=== PATIENT | female | born 1975 ===

== ENCOUNTER 2020-07-10 12:58 | Outpatient (REF) | payer MEDICARE, MEDICAID, SELFPAY ==
[2020-07-11 09:14] LABS: BV Int Neg Control Negative (Negative); BV Int Pos Control Positive (Positive)
[2020-07-11 18:27] LABS: C. trachomatis RNA TMA NOT DETECTED (NOT DETECTED); N. gonorrhoeae RNA TMA NOT DETECTED (NOT DETECTED)
== END 2020-07-10 12:59 | disposition home or self-care (01) ==
LOC: HO.LAB 12:58
PROVIDERS: PCP Pediatrics; Visit Provider Obstetrics & Gynecology
DX: R10.2 Pelvic and perineal pain (principal); N81.6 Rectocele
CPT/HCPCS: 81003; 87480; 87491; 87510; 87591; 87660; 99212; Q3014

== ENCOUNTER 2020-07-11 08:54 | Outpatient (REF) | payer MEDICARE, MEDICAID, SELFPAY ==
--- NOTE | 2020-07-11 08:58 | CT_ITS ---
EXAMINATION: CT ABDOMEN AND PELVIS WITH CONTRAST CLINICAL INFORMATION: Lower abdominal pain. COMPARISON: None TECHNIQUE: Multidetector volumetric images were obtained from the superior aspect of the liver through the pubic symphysis following administration 85 mL of Omnipaque 350 intravenous contrast. Sagittal and coronal reformatted images were obtained on the technologist's workstation. Oral contrast: No This CT examination was performed using dose optimization techniques as appropriate, variously including the following: *Automated exposure control *Adjustment of mA and/or kV according to patient size (this includes techniques or standardized protocols for targeted exams where dose is matched to indication/reason for exam; i.e. extremities or head) *Use of iterative reconstruction technique DLP: 466 mGy-cm FINDINGS: LUNG BASES: The lung bases are clear. LIVER, GALLBLADDER, AND BILIARY TREE: The liver is normal in size, shape, and diffuse hypoattenuation. There is a small hypodense 1 cm lesion right hepatic lobe segment 6. The gallbladder is unremarkable with no evidence of radiopaque gallstones, gallbladder wall thickening, or obvious pericholecystic inflammatory changes. PANCREAS: Unremarkable. SPLEEN: Unremarkable. ADRENAL GLANDS: Unremarkable. KIDNEYS AND URETERS: The kidneys are normal in size, shape, and attenuation. No hydronephrosis, hydroureter, or calculi seen. No perinephric stranding. BLADDER: Unremarkable. GASTROINTESTINAL TRACT: There is moderate scattered stool, oral contrast and gas seen throughout the colon without significant distention. The small bowel loops, ileocecal junction and the appendix are normal caliber. The stomach is nondistended and appears unremarkable. ABDOMINAL WALL: No significant hernia is appreciated. LYMPH NODES: Small scattered lymph nodes are seen in the inguinal region. VASCULAR: Unremarkable. PELVIC VISCERA: The uterus is anteverted and slightly heterogenous. There is a hyperdense lesion in the left adnexa adjacent to a 1.7 cm left ovarian cyst. The lesion measures 3.4 x 2.8 cm. The right adnexa is unremarkable. There is no free fluid in the pelvis. OSSEOUS STRUCTURES: There are degenerative disc changes and vacuum disc phenomenon at L5-S1 disc levels with mild ventral and posterior spondylosis. CT/CT abdomen pelvis w con IMPRESSION: Suspect bilateral pelvic vascular congestion. Hyperdense left adnexal lesion measuring 3.4 x 2.8 cm adjacent to a left ovarian 1.7 cm simple cyst. A hypodense lesion was seen on the previous CT abdomen and pelvis 06/01/2012. It measured 2.5 cm on previous study.
[2020-07-11] MEDS: iohexoL 350 MG/ML 100 ML INFUS..BTL IV (11:16)
== END 2020-07-11 08:55 | disposition home or self-care (01) ==
LOC: HO.CT 08:54
PROVIDERS: Visit Provider Emergency Medicine
DX: R10.30 Lower abdominal pain, unspecified (principal)
CPT/HCPCS: 74177; Q9967

== ENCOUNTER 2020-07-15 10:09 | Outpatient (REF) | payer MEDICARE, MEDICAID, SELFPAY ==
[2020-07-15 13:56] LABS: Hematocrit 41.7 % (37-47); Mean Corpuscular HGB Conc 33.6 g/dl (31.0-35.0); Mean Corpuscular Volume 92.5 fL (80-98); Mean Platelet Volume 10.5 fL (9.4-12.3); Platelet Count 332 X10*3/uL (160-400); Red Blood Count 4.51 X10*6/uL (4.20-5.50); Red Cell Distribution Width 12.1 % (11.0-16.0); White Blood Count 11.9 X10*3/uL (4.8-10.8)
[2020-07-15 14:59] LABS: HCG Quantitative < 2 mIU/mL
[2020-07-17 08:41] LABS: C. trachomatis RNA TMA NOT DETECTED (NOT DETECTED); N. gonorrhoeae RNA TMA NOT DETECTED (NOT DETECTED)
== END 2020-07-15 10:10 | disposition home or self-care (01) ==
LOC: HO.10HDL 10:09
PROVIDERS: Visit Provider Obstetrics & Gynecology
DX: N92.1 Excessive and frequent menstruation with irregular cycle (principal); R10.2 Pelvic and perineal pain
CPT/HCPCS: 36415; 84443; 84702; 85027; 87491; 87591

== ENCOUNTER 2020-07-31 11:14 | Outpatient (REF) | payer MEDICARE, MEDICAID, SELFPAY ==
--- NOTE | 2020-07-31 11:18 | US_ITS ---
EXAMINATION: ULTRASOUND PELVIS COMPLETE CLINICAL INFORMATION: Excessive and frequent menstruation with irregular cycles. COMPARISON: Ultrasound pelvis complete 07/21/2019. Patient had declined transvaginal ultrasound at that time. TECHNIQUE: Transabdominal and transvaginal ultrasound of the pelvis is performed. FINDINGS: The uterus is anteverted and anteflexed measuring 9.1 cm in length, 4.1 cm in AP and 4.7 cm in transverse dimension. There is a hypoechoic moderate-sized lesion in the left lower uterine body measuring 3.2 x 2.7 x 3.3 cm. A second smaller lesion on the left upper body of uterus measures 0.5 x 0.4 x 0.4 cm. These are consistent with small fibroids. These are not well visualized on the previous exam 07/21/2019 The endometrial thickness is 0.6 cm. Small nabothian cysts are seen in the cervix. The right ovary measures 2.4 x 2.0 x 2.2 cm and volume 5.5 mL. There is an anechoic cyst measuring 1.3 x 1.5 x 1.1 cm. There are a few echogenic calcifications seen within the ovaries. There is a tubular anechoic structure seen in right adnexa likely hydrosalpinx. The left ovary measures 2.8 x 1.8 x 1.9 cm and volume 8.1 mL. There is an anechoic cyst measuring 1.2 x 1.4 x 1.5 cm. There are a few echogenic calcifications seen in the ovaries. There is minimal free fluid in pelvis anterior to the uterus. US/US pelvic complete IMPRESSION: There are 2 uterine fibroids new since the last exam. There are small nabothian cysts in the cervix. Bilateral cysts in the ovaries. Likely right hydrosalpinx. Minimal free fluid in the pelvis anterior to the uterus. These above findings are new since ultrasound exam 07/21/2019.
== END 2020-07-31 11:15 | disposition home or self-care (01) ==
LOC: HO.US 11:14
PROVIDERS: PCP Pediatrics; Visit Provider Obstetrics & Gynecology
DX: R10.2 Pelvic and perineal pain (principal); N92.1 Excessive and frequent menstruation with irregular cycle
CPT/HCPCS: 76830; 76856

== ENCOUNTER 2020-08-08 14:28 | Outpatient (REF) | payer MEDICARE, MEDICAID, SELFPAY | END 2020-08-08 14:29 | disposition home or self-care (01) | LOC: HO.LAB 14:28 | PROVIDERS: PCP Pediatrics; Visit Provider Obstetrics & Gynecology | DX: N92.1 Excessive and frequent menstruation with irregular cycle (principal) | CPT/HCPCS: 58100; 88305 ==

== ENCOUNTER → 2020-08-21 15:52 | Outpatient (BNVA) | payer MEDICARE, MEDICAID, SELFPAY | PROVIDERS: PCP Pediatrics; Visit Provider Obstetrics & Gynecology | DX: Z76.89 Persons encountering health services in other specified circumstances (principal) | CPT/HCPCS: Q3014 ==

== ENCOUNTER → 2020-08-26 11:41 | Outpatient (BNVA) | payer MEDICARE, MEDICAID, SELFPAY | PROVIDERS: PCP Pediatrics; Visit Provider Obstetrics & Gynecology | CPT/HCPCS: Q3014 ==

== ENCOUNTER 2020-10-02 08:20 | Outpatient (REF) | payer MEDICARE, MEDICAID, SELFPAY ==
--- NOTE | ~2020-10-02 | MM_ITS ---
EXAMINATION: MM SCREENING DIGITAL BREAST TOMOSYNTHESIS, BILATERAL CLINICAL INFORMATION: Screening. Asymptomatic. The lifetime risk of breast cancer based on the Tyrer-Cuzick Model is 11.1%. COMPARISON: Mammography: March 07, 2019 and August 13, 2017 TECHNIQUE: Digital breast tomosynthesis is performed in both the craniocaudal and mediolateral oblique views along with computer-aided detection (CAD). Synthesized 2D images are generated from the tomosynthesis. FINDINGS: There are scattered areas of fibroglandular density (ACR BI-RADS breast composition Category b). There are no significant masses, abnormal calcifications, or other abnormalities. MM/MM tomosynthesis screening BI IMPRESSION: There are no significant changes from prior study. ASSESSMENT: BI-RADS 1: Negative RECOMMENDATION: Routine annual mammography screening. This patient's information was entered into a reminder system with a target due date for their next mammogram.
== END 2020-10-02 08:21 | disposition home or self-care (01) ==
LOC: HO.MAMMO 08:20
PROVIDERS: PCP Pediatrics; Visit Provider Obstetrics & Gynecology
DX: Z12.31 Encounter for screening mammogram for malignant neoplasm of breast (principal)
CPT/HCPCS: 77063; 77067

== ENCOUNTER → 2020-10-31 10:38 | Outpatient (BNVA) | payer MEDICARE, MEDICAID, SELFPAY | PROVIDERS: PCP Pediatrics; Visit Provider Obstetrics & Gynecology | DX: Z30.430 Encounter for insertion of intrauterine contraceptive device (principal) | CPT/HCPCS: 58300 ==

== ENCOUNTER → 2020-12-09 09:17 | Outpatient (BNVA) | payer MEDICARE, MEDICAID, SELFPAY | PROVIDERS: PCP Pediatrics; Visit Provider Obstetrics & Gynecology | DX: Z30.431 Encounter for routine checking of intrauterine contraceptive device (principal) | CPT/HCPCS: 99212 ==

== ENCOUNTER 2021-02-18 12:51 | Outpatient (REF) | payer MEDICARE, MEDICAID, SELFPAY ==
--- NOTE | ~2021-02-18 | US_ITS ---
EXAMINATION: US PELVIS COMPLETE US PELVIS TRANSVAGINAL CLINICAL INFORMATION: Benign neoplasm. COMPARISON: Most recent pelvic ultrasound dated 07/31/2020 TECHNIQUE: Transabdominal and transvaginal imaging was performed. FINDINGS: The uterus is of normal size and echogenicity measuring 8.9 x 4.4 x 5.2 cm. Redemonstration of a left uterine body fibroid measuring 2 x 2.4 x 1.8 cm (previously 3.2 x 2.7 x 3.3 cm). Additional previously seen small uterine fibroid not identified on the current examination. A regular homogeneous endometrium is identified measuring 0.2 cm. IUD within the endometrium. There are simple nabothian cysts. Both ovaries are of normal size and echogenicity. The right measures 2.1 x 1.4 x 1.5 cm for a volume of 2.3 mL. The left measures 3.8 x 2.1 x 1.7 cm for a volume of 6.8 mL. There are punctate densities within the left ovary, likely representing small calcifications and unchanged. There is trace right adnexal free fluid. US/US transvaginal IMPRESSION: 1. Left uterine body fibroid, slightly decreased in size when compared to the prior examination now measuring up to 3.2 cm (previously 2.4 cm). Additional previously seen fibroid not identified on the current examination. No new myometrial lesion. 2. Unremarkable endometrium with an IUD in appropriate position. 3. Punctate left ovarian calcifications, unchanged. No new adnexal lesion. 4. Trace right adnexal free fluid.
--- NOTE | ~2021-02-18 | US_ITS ---
EXAMINATION: US PELVIS COMPLETE US PELVIS TRANSVAGINAL CLINICAL INFORMATION: Benign neoplasm. COMPARISON: Most recent pelvic ultrasound dated 07/31/2020 TECHNIQUE: Transabdominal and transvaginal imaging was performed. FINDINGS: The uterus is of normal size and echogenicity measuring 8.9 x 4.4 x 5.2 cm. Redemonstration of a left uterine body fibroid measuring 2 x 2.4 x 1.8 cm (previously 3.2 x 2.7 x 3.3 cm). Additional previously seen small uterine fibroid not identified on the current examination. A regular homogeneous endometrium is identified measuring 0.2 cm. IUD within the endometrium. There are simple nabothian cysts. Both ovaries are of normal size and echogenicity. The right measures 2.1 x 1.4 x 1.5 cm for a volume of 2.3 mL. The left measures 3.8 x 2.1 x 1.7 cm for a volume of 6.8 mL. There are punctate densities within the left ovary, likely representing small calcifications and unchanged. There is trace right adnexal free fluid. US/US pelvic complete IMPRESSION: 1. Left uterine body fibroid, slightly decreased in size when compared to the prior examination now measuring up to 3.2 cm (previously 2.4 cm). Additional previously seen fibroid not identified on the current examination. No new myometrial lesion. 2. Unremarkable endometrium with an IUD in appropriate position. 3. Punctate left ovarian calcifications, unchanged. No new adnexal lesion. 4. Trace right adnexal free fluid.
== END 2021-02-18 12:52 | disposition home or self-care (01) ==
LOC: HO.US 12:51
PROVIDERS: PCP Pediatrics; Visit Provider Obstetrics & Gynecology
DX: D21.9 Benign neoplasm of connective and other soft tissue, unspecified (principal); N70.11 Chronic salpingitis
CPT/HCPCS: 76830; 76856

== ENCOUNTER → 2021-03-19 12:51 | Outpatient (BNVA) | payer MEDICARE, MEDICAID, SELFPAY | PROVIDERS: PCP Pediatrics; Visit Provider Obstetrics & Gynecology | DX: D21.9 Benign neoplasm of connective and other soft tissue, unspecified (principal); N70.11 Chronic salpingitis | CPT/HCPCS: 99212 ==

== ENCOUNTER 2021-06-11 07:46 | Outpatient (REF) | payer MEDICARE, MEDICAID, SELFPAY ==
[2021-06-11 14:15] LABS: CT PCR NOT DETECTED (Not Detect.); NG PCR NOT DETECTED (Not Detect.)
[2021-06-12 11:49] LABS: BV Int Neg Control Negative (Negative); BV Int Pos Control Positive (Positive)
== END 2021-06-11 07:47 | disposition home or self-care (01) ==
LOC: HO.LAB 07:46
PROVIDERS: Visit Provider Obstetrics & Gynecology
DX: Z01.411 Encounter for gynecological examination (general) (routine) with abnormal findings (principal); R10.2 Pelvic and perineal pain; B37.3 Candidiasis of vulva and vagina; Z20.2 Contact with and (suspected) exposure to infections with a predominantly sexual mode of transmission
CPT/HCPCS: 81003; 81025; 87480; 87491; 87510; 87591; 87660; 99212

== ENCOUNTER 2021-06-13 08:57 | Outpatient (REF) | payer MEDICARE, MEDICAID, SELFPAY ==
--- NOTE | ~2021-06-13 | US_ITS ---
EXAMINATION: US PELVIS CLINICAL INFORMATION: Chronic salpingitis; pelvic pain. COMPARISON: None TECHNIQUE: Ultrasound of the pelvis is performed using both transabdominal and transvaginal transducers along with Doppler. Transvaginal imaging is performed due to inadequate visualization transabdominally. FINDINGS: Uterus: The uterus is anteverted and anteflexed and measures 7.4 x 4.0 x 4.3 cm. The double wall endometrial thickness is 2 mm. An intrauterine device is seen, properly situated within the endometrial canal. Nabothian cysts are seen within the cervix. The uterus is smooth in contour and has normal myometrial echogenicity. FIBROIDS: There is 1 fibroid seen. 1. Location: Anterior lower uterine segment, subserosal. Size: 2.8 x 2.6 x 2.9 cm. Fibroid characteristics: Heterogeneously hypoechoic. Adnexa: Both ovaries are visualized. There is normal color flow to the adnexa. There is no ovarian torsion. There is no pelvic ascites or fluid collection. Right ovary measures 2.2 x 1.6 x 2.7 cm (volume 4.9 mL). Left ovary measures 2.7 x 2.0 x 2.7 cm (volume 7.4 mL). Within the left adnexa, there is a an ill-defined tubular structure, which may represent a hydrosalpinx. US/US pelvic and transvaginal IMPRESSION: 1. An intrauterine device is seen, properly situated within the endometrial canal. 2. Nabothian cysts are seen within the cervix. 3. A uterine fibroid is seen. 4. An ill-defined tubular structure within the left adnexal region may represent a hydrosalpinx.
[2021-06-13 10:18] LABS: Hepatitis B Surface Antigen Negative (Negative)
[2021-06-13 10:22] LABS: HIV AB/AG Nonreactive (Nonreactive); HIV Num 1 0.06 S/CO (0.00-0.99); ~HepC Num1 0.14 S/CO (0.00-0.79); ~Hepatitis C Antibody Nonreactive (Nonreactive)
[2021-06-13 10:36] LABS: Syphilis Screen Nonreactive (Nonreactive)
[2021-06-14 03:01] LABS: CT PCR NOT DETECTED (Not Detect.); NG PCR NOT DETECTED (Not Detect.)
== END 2021-06-13 08:58 | disposition home or self-care (01) ==
LOC: HO.HMGCX 08:57
PROVIDERS: Absent Provider Obstetrics & Gynecology; PCP Pediatrics; Visit Provider Advanced Practice Midwife
DX: N70.11 Chronic salpingitis (principal); R10.2 Pelvic and perineal pain; N76.0 Acute vaginitis; N92.1 Excessive and frequent menstruation with irregular cycle; B96.89 Other specified bacterial agents as the cause of diseases classified elsewhere; D25.9 Leiomyoma of uterus, unspecified; N84.1 Polyp of cervix uteri; Z97.5 Presence of (intrauterine) contraceptive device
CPT/HCPCS: 76830; 76856; 86780; 86803; 87340; 87389; 87491; 87591

== ENCOUNTER → 2021-06-25 12:31 | Outpatient (BNVA) | payer MEDICARE, MEDICAID, SELFPAY | PROVIDERS: PCP Pediatrics; Visit Provider Obstetrics & Gynecology | DX: N70.11 Chronic salpingitis (principal); R10.2 Pelvic and perineal pain | CPT/HCPCS: 99212 ==

== ENCOUNTER 2022-04-14 11:07 | Outpatient (REF) | payer MEDICARE, MEDICAID, SELFPAY ==
--- NOTE | ~2022-04-14 | XR_ITS ---
EXAMINATION: XR THORACIC SPINE XR CERVICAL SPINE CLINICAL INFORMATION: Pain. COMPARISON: None. TECHNIQUE: Dorsal spine 3 views. Cervical spine 5 views. FINDINGS: Dorsal Spine: There is normal thoracic kyphosis. There is mild levoscoliosis, positional versus spasm. The vertebral heights and alignment are normal. There is no visible acute fracture, dislocation or subluxation seen. Cervical Spine: There is mild straightening of cervical lordosis. The vertebral heights and alignment is normal. There is loss of C5-C6 and C6-C7 disc heights with mild ventral spondylosis. No visible acute fracture, dislocation or lytic process seen. There is bilateral narrowing of neural foramina C5-C6 disc level. No acute fracture or dislocation seen. The craniovertebral junction and the C1-C2 alignment is normal. The prevertebral soft tissues are normal. XR/XR cervical spine 4V IMPRESSION: Mild levoscoliosis of dorsal spine positional versus spasm. No acute fracture or dislocation. Degenerative disc changes C5-C6 and C6-C7 disc levels with ventral and posterior spondylosis C5-C6 disc level. There is bilateral neural foraminal narrowing at C5-C6 disc level from uncovertebral hypertrophic changes. No visible acute fracture or dislocation seen.
--- NOTE | ~2022-04-14 | XR_ITS ---
EXAMINATION: XR THORACIC SPINE XR CERVICAL SPINE CLINICAL INFORMATION: Pain. COMPARISON: None. TECHNIQUE: Dorsal spine 3 views. Cervical spine 5 views. FINDINGS: Dorsal Spine: There is normal thoracic kyphosis. There is mild levoscoliosis, positional versus spasm. The vertebral heights and alignment are normal. There is no visible acute fracture, dislocation or subluxation seen. Cervical Spine: There is mild straightening of cervical lordosis. The vertebral heights and alignment is normal. There is loss of C5-C6 and C6-C7 disc heights with mild ventral spondylosis. No visible acute fracture, dislocation or lytic process seen. There is bilateral narrowing of neural foramina C5-C6 disc level. No acute fracture or dislocation seen. The craniovertebral junction and the C1-C2 alignment is normal. The prevertebral soft tissues are normal. XR/XR thoracic spine 3V IMPRESSION: Mild levoscoliosis of dorsal spine positional versus spasm. No acute fracture or dislocation. Degenerative disc changes C5-C6 and C6-C7 disc levels with ventral and posterior spondylosis C5-C6 disc level. There is bilateral neural foraminal narrowing at C5-C6 disc level from uncovertebral hypertrophic changes. No visible acute fracture or dislocation seen.
== END 2022-04-14 11:08 | disposition home or self-care (01) ==
LOC: HO.XRAY 11:07
PROVIDERS: PCP Pediatrics; Visit Provider Internal Medicine Geriatric Medicine
DX: M54.9 Dorsalgia, unspecified (principal)
CPT/HCPCS: 72050; 72072

== ENCOUNTER 2022-09-06 17:03 | Emergency (ER) | payer MEDICARE, MEDICAID, SELFPAY ==
--- NOTE | ~2022-09-06 | CT_ITS ---
EXAMINATION: CT ANGIOGRAM HEAD CT ANGIOGRAM NECK CLINICAL INFORMATION: Reason for Exam left headache, left neck pain, left arm weakness COMPARISON: None. TECHNIQUE: Initial noncontrast graduate research assistant imaging of the head and neck was performed. Noncontrast head CT was also performed. Test bolus sequences followed by intravenous administration 70 mL of Omnipaque 350. Helical imaging was performed in the axial plane from the aortic arch to the skull vertex. Delayed postcontrast imaging of the head was also performed. The data was processed at the radiation therapy technologist's workstation for generation of MIP sequences. Angled MIPs and volume rendered reformatted images were also generated at an offline 3D workstation. Stenoses are assessed in accordance with NASCET criteria unless otherwise indicated. DLP: 2375.67 mGy-cm This CT examination was performed using dose optimization techniques as appropriate, variously including the following: *Automated exposure control. *Adjustment of mA and/or kV according to patient size (this includes techniques or standardized protocols for targeted exams where dose is matched to indication/reason for exam; i.e. extremities or head). *Use of iterative reconstruction technique. FINDINGS: CT Head: There is no evidence of acute intracranial hemorrhage or edematous territorial infarction. There is no abnormal attenuation within the brain parenchyma. Mcgill-white matter differentiation is preserved. The ventricles are normal in size and configuration. No evidence for obstructive hydrocephalus. No abnormal mass effect or midline shift. No extra-axial fluid collections. No pathologic intra-axial enhancement or regional oligemia. No acute soft tissue or osseous abnormalities. The mastoid air cells and paranasal sinuses are clear. CT Neck: The thyroid gland and remaining cervical soft tissues are within normal limits. Degenerative disc space narrowing and uncovertebral hypertrophy at C5-C6 and to a lesser extent C6-C7 CT Upper Chest: The visualized lung apices and upper mediastinum are within normal limits. Neck CTA: Aortic Arch: Normal contour and caliber. Classic 3 vessel branching pattern of the aortic arch. Great Vessel Origins: No significant stenosis of the branch origins. Right Common Carotid Artery: No focal stenosis or occlusion. Cervical Right Internal Carotid Artery: Normal opacification without focal stenosis or occlusion. Left Common Carotid Artery: No focal stenosis or occlusion. Cervical Left Internal Carotid Artery: Normal opacification without focal stenosis or occlusion. Cervical Right Vertebral Artery: No focal stenosis or occlusion. Cervical Left Vertebral Artery: No focal stenosis or occlusion. Brain CTA: CTA of the head is somewhat technically limited secondary to extensive venous contamination Intracranial Internal Carotid Arteries: No focal stenosis or occlusion. Right Anterior Cerebral Artery: Normal A1 segment. Normal opacification of the distal MEKA segments. Left Anterior Cerebral Artery: Normal A1 segment. Normal opacification of the distal MEKA segments. Anterior Communicating Artery: Normal. Right Middle Cerebral Artery: Normal M1 segment of the MCA without focal stenosis or occlusion. Normal arborization of the distal segments. Left Middle Cerebral Artery: Normal M1 segment of the MCA without focal stenosis or occlusion. Normal arborization of the distal segments. Right Vertebral Artery: Normal V4 segment. Left Vertebral Artery: Normal V4 segment. Basilar Artery: Normal without focal stenosis or occlusion. Normal appearance of the proximal superior cerebellar arteries. Right Posterior Cerebral Artery: Normal P1 segment. Normal opacification of the distal DIRECTOR OF ENVIRONMENTAL SERVICES segments. Left Posterior Cerebral Artery: Normal P1 segment. Normal opacification of the distal DIRECTOR OF ENVIRONMENTAL SERVICES segments. Normal opacification of the superior sagittal, straight, transverse, and sigmoid sinuses. CT/CT angio head neck IMPRESSION: 1. No acute intracranial abnormality including hemorrhage, mass effect, hydrocephalus, or acute territorial edematous infarction. 2. No arterial high grade stenosis or large vessel occlusion in the head or neck. No evidence of arterial dissection. CTA of the head is somewhat technically limited due to extensive venous contamination
--- NOTE | ~2022-09-06 | XR_ITS ---
EXAMINATION: XR chest 2V CLINICAL INFORMATION: Reason for Exam arm pain/back pain/neck pain COMPARISON: July 2018 TECHNIQUE: XR chest 2V Lungs and Sharmila: Both lungs are clear. Pleura: Normal. Costophrenic angles are sharp. No pneumothorax. Heart: The heart is normal in size. Mediastinum: The mediastinum is within normal limits.. Bones: Skeletal structures included are normal for patient's age. XR/XR chest 2V IMPRESSION: No radiographic evidence of acute cardiopulmonary disease.
--- NOTE | 2022-09-06 17:15 | ED.NECK ---
HPI - Neck Pain/Injury General Chief Complaint: General Medical <Mackenzie Barksdale NP - Last Filed: 09/06/22 17:18> Stated Complaint: pain on left side- neck to shoulder <Mackenzie Barksdale NP - Last Filed: 09/06/22 17:18> Time Seen by Provider: 09/06/22 18:06 <Mackenzie Barksdale NP - Last Filed: 09/06/22 17:18> Source: patient <Lilly Liu NP - Last Filed: 09/06/22 20:21> Mode of arrival: ambulatory <Lilly Liu NP - Last Filed: 09/06/22 20:21> Limitations: no limitations <Lilly Liu NP - Last Filed: 09/06/22 20:21> History of Present Illness HPI Narrative: 47-year-old female presents with sudden onset of severe left-sided headache, left-sided neck pain and left arm weakness with numbness, accompanied with nausea. <Lilly Liu NP - Last Filed: 09/06/22 20:21> MD complaint: neck pain and other <Lilly Liu NP - Last Filed: 09/06/22 20:21> Onset (ago): hour(s) (Within the hour of arrival) <Lilly Liu NP - Last Filed: 09/06/22 20:21> Radiation: left lateral, head, left shoulder and left upper extremity <Lilly Liu NP - Last Filed: 09/06/22 20:21> Severity: severe <Lilly Liu NP - Last Filed: 09/06/22 20:21> Severity scale (1-10): 10 <Lilly Liu NP - Last Filed: 09/06/22 20:21> Quality: stabbing and spasming <Lilly Liu NP - Last Filed: 09/06/22 20:21> Duration: improved <Lilly Lui NP - Last Filed: 09/06/22 20:21> Relieving factors: none <Lilly Liu NP - Last Filed: 09/06/22 20:21> Exacerbating factors: none <Lilly Liu NP - Last Filed: 09/06/22 20:21> Associated symptoms: headache, numbness, weakness and nausea <COURTNEY Orantes Last Filed: 09/06/22 20:21> Treatments prior to arrival: none <COURTNEY Orantes Last Filed: 09/06/22 20:21> Related Data Home Medications: Home Medications Medication Instructions Recorded Confirmed levonorgestrel 20 mcg/24 hours (8 intrauterine 12/09/20 yrs) 52 mg intrauterine device (Mirena) Previous Rx's Medication Instructions Recorded terconazole 0.8 % vaginal cream 1 appful vaginal BEDTIME 3 days 06/11/21 #20 grams metronidazole 500 mg tablet 500 mg PO BID 7 days #14 tabs 06/12/21 <COURTNEY Khan Last Filed: 09/06/22 17:18> Allergies/Adverse Reactions: Allergies Allergy/AdvReac Type Severity Reaction Status Date / Time vicodin Allergy Unknown abd pain, Uncoded 06/11/21 08:14 nausea <COURTNEY Khan Last Filed: 09/06/22 17:18> Review of Systems Review of Systems: Constitutional: No Fever, No Chills ENT/Mouth: No Ear Pain, No Hoarseness, No sore throat Eyes: No Eye Pain, No Swelling, No Redness, No Foreign Body Cardiovascular: No Chest Pain, No SOB Respiratory: No Cough, No Dyspnea Gastrointestinal: No Nausea, No Vomiting, No Diarrhea, No abdominal Pain Genitourinary: No Dysuria, No Hematuria Musculoskeletal: positive joint pain, No Myalgias, No Joint Swelling Skin: No Skin lacerations, No rash Neuro: Positive left arm Weakness, positive left arm Numbness, No Paresthesias, No Loss of Consciousness, positive Dizziness, positive left-sided Headache <COURTNEY Orantes Last Filed: 09/06/22 20:21> Yes all other systems are reviewed and are negative <COURTNEY Orantes Last Filed: 09/06/22 20:21> [facility] Past Medical History Attestation statement: The following information was validated with the patient. <COURTNEY Orantes Last Filed: 09/06/22 20:21> Source: old records reviewed <COURTNEY Orantes Last Filed: 09/06/22 20:21> Surgical History: Surgical History History of bilateral tubal ligation History of cholecystectomy <Mackenzie Barksdale NP - Last Filed: 09/06/22 17:18> Social History Social History: Social History Alcohol intake: never Patient Tobacco Use Status: Current everyday Tobacco user Cigarettes Per Day: 8 Advance Directives: No Advance Directives Information Provided: No Sexual orientation: Straight/Heterosexual Gender identity: Female <Mackenzie Barksdale NP - Last Filed: 09/06/22 17:18> Physical Exam Vital Signs: Vital Signs: Last Vital Signs Temp 98 F 09/06/22 17:17 Pulse 68 09/06/22 17:17 Resp 18 09/06/22 17:17 BP 151/96 H 09/06/22 17:17 Pulse Ox 98 09/06/22 17:17 O2 Del Method 09/06/22 17:17 BMI result Body Mass Index 29.3 <Mackenzie Barksdale NP - Last Filed: 09/06/22 17:18> Vital Signs: Last Vital Signs Temp 98 F 09/06/22 17:17 Pulse 68 09/06/22 17:17 Resp 18 09/06/22 17:17 BP 151/96 H 09/06/22 17:17 Pulse Ox 98 09/06/22 17:17 O2 Del Method 09/06/22 17:17 BMI result Body Mass Index 29.3 <Lilly Liu NP - Last Filed: 09/06/22 20:21> Appearance: Alert. Oriented X3. No acute distress. Eyes: Pupils equal, round and reactive to light. EOMI. ENT: Pharynx normal. Neck: Normal inspection. Neck supple. No vertebral tenderness or step-offs CVS: Normal heart rate and rhythm. Pulses normal. Respiratory: No respiratory distress. Breath sounds normal. Abdomen: Soft and nontender. Skin: Skin warm and dry. Normal skin color. Normal skin turgor. Extremities: Left hand airline station agent strength 4/5, right 5/5. Full range of motion. Gait well balanced well coordinated. Neuro: No motor deficit. No sensory deficit. Cranial nerves 2 through 12 intact <Candjame Liu, ENCYCLOPEDIA RESEARCH WORKER - Last Filed: 09/06/22 20:21> NIH Stroke Scale Internal: Initial- Upon Arrival <Lilly Liu ENCYCLOPEDIA RESEARCH WORKER - Last Filed: 09/06/22 20:21> Level of Consciousness: Alert <Candjame Liu, ENCYCLOPEDIA RESEARCH WORKER - Last Filed: 09/06/22 20:21> Level of Consciousness Questions: Answers both questions correctly <Lilly Liu ENCYCLOPEDIA RESEARCH WORKER - Last Filed: 09/06/22 20:21> Level of Consciousness Commands: Performs both tasks correctly <Candjame Liu, ENCYCLOPEDIA RESEARCH WORKER - Last Filed: 09/06/22 20:21> Best Gaze: Normal <Candjame Liu, ENCYCLOPEDIA RESEARCH WORKER - Last Filed: 09/06/22 20:21> Visual: No visual loss <Candy Alexa, ENCYCLOPEDIA RESEARCH WORKER - Last Filed: 09/06/22 20:21> Facial Palsy: Normal <Candy Alexa, ENCYCLOPEDIA RESEARCH WORKER - Last Filed: 09/06/22 20:21> Motor Arm (Right): No drift <Candy Alexa, ENCYCLOPEDIA RESEARCH WORKER - Last Filed: 09/06/22 20:21> Motor Arm (Left): No drift <Candy Alexa, ENCYCLOPEDIA RESEARCH WORKER - Last Filed: 09/06/22 20:21> Motor Leg (Right): No drift <Candy Alexa, ENCYCLOPEDIA RESEARCH WORKER - Last Filed: 09/06/22 20:21> Motor Leg (Left): No drift <Candy Alexa, ENCYCLOPEDIA RESEARCH WORKER - Last Filed: 09/06/22 20:21> Limb Ataxia: Absent <Candy Alexa, ENCYCLOPEDIA RESEARCH WORKER - Last Filed: 09/06/22 20:21> Sensory: Normal <Candy Alexa, ENCYCLOPEDIA RESEARCH WORKER - Last Filed: 09/06/22 20:21> Best Language: No aphasia <Candjame Liu, ENCYCLOPEDIA RESEARCH WORKER - Last Filed: 09/06/22 20:21> Dysarthia: Normal <Candy Alexa, ENCYCLOPEDIA RESEARCH WORKER - Last Filed: 09/06/22 20:21> Extinction and Inattention: No abnormality <Candy Alexa, ENCYCLOPEDIA RESEARCH WORKER - Last Filed: 09/06/22 20:21> Score: 0 <Candy Alexa, ENCYCLOPEDIA RESEARCH WORKER - Last Filed: 09/06/22 20:21> Course Course Course Narrative: This is a rapid medical exam. Deferred additional HPI, ROS, PE to primary provider. 47 yo female w/ history of asthma, anxiety here with complaints of left sided neck pain/left upper back pain/left arm pain, diaphoresis, nausea x 15 minutes. No known injury or trauma. Will obtain labs, EKG, CXR, covid screen. VSS <Mackenzie Barksdale NP - Last Filed: 09/06/22 17:18> This is a rapid medical exam. Deferred additional HPI, ROS, PE to primary provider. 47 yo female w/ history of asthma, anxiety here with complaints of left sided neck pain/left upper back pain/left arm pain, diaphoresis, nausea x 15 minutes. No known injury or trauma. Will obtain labs, EKG, CXR, covid screen. VSS 18:15 47-year-old female presents for evaluation for sudden onset of left-sided headache, left-sided numbness and weakness to the arm, accompanied by nausea and diaphoresis. This episode of pain is described as severe, pulling stabbing feeling, and lasted for approximately 15-20 minutes. The pain has subsided however patient still feels numbness and tingling to the left hand. This pain started after she had her nails manic cured, does not report any physical trauma falls or prodromal events. Stated that she sometimes experiences muscle spasms however this feels much different than prior. NIH Stroke Scale completed at this time. Score is 0. It is concerning that patient had a sudden onset of severe left-sided headache with left arm numbness, no history of migraines, history of hypertension, will order CTA of head and neck. Labs completed in the emergency department waiting room, WBC 12.3, could possibly be reactive, patient does not have any signs or symptoms indicating infection. Patient does not have vertebral tenderness or step-offs, no nuchal rigidity, no mastoid tenderness, HEENT exam is normal. Cranial nerves 2-12 intact. Neurovascularly intact. Chemistries are normal. Troponin is negative. EKG is normal sinus rhythm. Chest x-ray is negative for acute findings. Low likelihood of ACS at this time. COVID negative. 20:00 CTA negative for acute findings requiring emergent intervention. Patient does have some degenerative disc space narrowing and uncovertebral hypertrophy C5-C6 and C6-C7. Her symptoms could be explained by muscle spasm. Will have patient follow-up with her primary care physician. I did describe in detail signs symptoms indicating need for emergent intervention. Patient verbalized understanding of and agrees to plan of care discharge home, as well as signs and symptoms indicating need for emergent intervention <Lilly Liu NP - Last Filed: 09/06/22 20:21> Medications Administered Discontinued Medications Generic Name Dose Route Start Last Admin Trade Name Freq PRN Reason Stop Dose Admin Iohexol 100 ml 09/06/22 18:59 09/06/22 18:59 Iohexol 350 Mg/Ml 100 Ml Infus..Btl IV 09/06/22 19:00 70 ml ONCE ONE Administration <Mackenzie Barksdale NP - Last Filed: 09/06/22 17:18> Medications Administered Discontinued Medications Generic Name Dose Route Start Last Admin Trade Name Freq PRN Reason Stop Dose Admin Iohexol 100 ml 09/06/22 18:59 09/06/22 18:59 Iohexol 350 Mg/Ml 100 Ml Infus..Btl IV 09/06/22 19:00 70 ml ONCE ONE Administration <Lilly Liu NP - Last Filed: 09/06/22 20:21> Medical Decision Making Differential Diagnosis Differential Diagnoses: The differential diagnosis associated with the presentation includes <Lilly Liu NP - Last Filed: 09/06/22 20:21> Admission/Observation Consideration of admission/observation: Escalation of care including admission/observation considered <Lilly Liu NP - Last Filed: 09/06/22 20:21> If CT indicates acute findings, will consider admission or transfer <Lilly Liu NP - Last Filed: 09/06/22 20:21> Lab Data MDM Lab Attestation statement: I reviewed the patient's lab results. <Lilly Liu NP - Last Filed: 09/06/22 20:21> Result Diagrams: 09/06/22 17:34 09/06/22 17:34 <Mackenzie Barksdale NP - Last Filed: 09/06/22 17:18> Labs: Lab Results 09/06/22 09/06/22 09/06/22 Range/Units 17:34 17:34 17:34 WBC 12.3 H (4.8-10.8) X10*3/uL RBC 4.52 (4.20-5.50) X10*6/uL Hgb 14.2 (12.0-16.0) g/dl Hct 40.5 (37.0-47.0) % MCV 89.6 (80.0-98.0) fL MCH 31.4 (27.0-33.0) pg MCHC 35.1 H (31.0-35.0) g/dl RDW 12.1 (11.0-16.0) % Plt Count 294 (160-400) X10*3/uL MPV 10.3 (9.4-12.3) fL Immature Gran % (Auto) 0.3 (0.0-0.4) % Neut % (Auto) 41.7 L (45-73) % Lymph % (Auto) 50.4 H (20-40) % [place] % (Auto) 5.2 (2-11) % Eos % (Auto) 1.8 (0-4) % Baso % (Auto) 0.6 (0-2) % Lymph # (Auto) 6.2 H (1.2-4.9) X10*3/uL [place] # (Auto) 0.6 (0.1-1.2) X10*3/uL Eos # (Auto) 0.2 (0.0-0.4) X10*3/uL Baso # (Auto) 0.1 (0.0-0.2) X10*3/uL Abs Immat Gran (auto) 0.04 H (0.00-0.03) X10*3/uL Absolute Neuts (auto) 5.1 (2.0-8.3) x10*3/uL Absolute Nucleated RBC 0.000 (0.0-0.012) X10*3/uL Nucleated RBC % (auto) 0.0 (0.0-0.2) /100WBC Smear Tech's Comments VERIFIED PT 12.0 (10.0-13.1) SEC INR 1.0 (0.9-1.1) Sodium (135-145) mmol/L Potassium (3.3-5.1) mmol/L Chloride (96-108) mmol/L Carbon Dioxide (22-29) mmol/L Anion Gap (12-20) BUN (9-16) mg/dL Creatinine (0.5-1.4) mg/dL Estim Creat Clear Calc Estimated GFR Random Glucose (60-115) mg/dL Calcium (8.4-10.2) mg/dL Magnesium (1.6-2.6) mg/dL Total Bilirubin (0.0-1.0) mg/dL Direct Bilirubin (0.0-0.5) mg/dL AST (5-31) U/L ALT (0-31) U/L Alkaline Phosphatase (39-117) U/L Troponin I High Sens (<3.5-17.0) ng/L Total Protein (6.5-8.0) g/dL Albumin (3.5-5.0) g/dL COVID-19 (MELE) Negative (Negative) COVID-19 Clin Com See Note 09/06/22 09/06/22 Range/Units 17:34 17:34 WBC (4.8-10.8) X10*3/uL RBC (4.20-5.50) X10*6/uL Hgb (12.0-16.0) g/dl Hct (37.0-47.0) % MCV (80.0-98.0) fL MCH (27.0-33.0) pg MCHC (31.0-35.0) g/dl RDW (11.0-16.0) % Plt Count (160-400) X10*3/uL MPV (9.4-12.3) fL Immature Gran % (Auto) (0.0-0.4) % Neut % (Auto) (45-73) % Lymph % (Auto) (20-40) % [place] % (Auto) (2-11) % Eos % (Auto) (0-4) % Baso % (Auto) (0-2) % Lymph # (Auto) (1.2-4.9) X10*3/uL [place] # (Auto) (0.1-1.2) X10*3/uL Eos # (Auto) (0.0-0.4) X10*3/uL Baso # (Auto) (0.0-0.2) X10*3/uL Abs Immat Gran (auto) (0.00-0.03) X10*3/uL Absolute Neuts (auto) (2.0-8.3) x10*3/uL Absolute Nucleated RBC (0.0-0.012) X10*3/uL Nucleated RBC % (auto) (0.0-0.2) /100WBC Smear Tech's Comments PT (10.0-13.1) SEC INR (0.9-1.1) Sodium 139 (135-145) mmol/L Potassium 3.9 (3.3-5.1) mmol/L Chloride 107 (96-108) mmol/L Carbon Dioxide 23 (22-29) mmol/L Anion Gap 13 (12-20) BUN 11 (9-16) mg/dL Creatinine 0.63 (0.5-1.4) mg/dL Estim Creat Clear Calc 113.6 Estimated GFR > 60 Random Glucose 89 (60-115) mg/dL Calcium 9.3 (8.4-10.2) mg/dL Magnesium 1.9 (1.6-2.6) mg/dL Total Bilirubin 0.2 (0.0-1.0) mg/dL Direct Bilirubin < 0.2 (0.0-0.5) mg/dL AST 18 (5-31) U/L ALT 12 (0-31) U/L Alkaline Phosphatase 60 (39-117) U/L Troponin I High Sens < 3.5 (<3.5-17.0) ng/L Total Protein 6.6 (6.5-8.0) g/dL Albumin 4.2 (3.5-5.0) g/dL COVID-19 (MELE) (Negative) COVID-19 Clin Com <Mackenzie Barksdale, ENCYCLOPEDIA RESEARCH WORKER - Last Filed: 09/06/22 17:18> Lab Results 09/06/22 09/06/22 09/06/22 Range/Units 17:34 17:34 17:34 WBC 12.3 H (4.8-10.8) X10*3/uL RBC 4.52 (4.20-5.50) X10*6/uL Hgb 14.2 (12.0-16.0) g/dl Hct 40.5 (37.0-47.0) % MCV 89.6 (80.0-98.0) fL MCH 31.4 (27.0-33.0) pg MCHC 35.1 H (31.0-35.0) g/dl RDW 12.1 (11.0-16.0) % Plt Count 294 (160-400) X10*3/uL MPV 10.3 (9.4-12.3) fL Immature Gran % (Auto) 0.3 (0.0-0.4) % Neut % (Auto) 41.7 L (45-73) % Lymph % (Auto) 50.4 H (20-40) % [place] % (Auto) 5.2 (2-11) % Eos % (Auto) 1.8 (0-4) % Baso % (Auto) 0.6 (0-2) % Lymph # (Auto) 6.2 H (1.2-4.9) X10*3/uL [place] # (Auto) 0.6 (0.1-1.2) X10*3/uL Eos # (Auto) 0.2 (0.0-0.4) X10*3/uL Baso # (Auto) 0.1 (0.0-0.2) X10*3/uL Abs Immat Gran (auto) 0.04 H (0.00-0.03) X10*3/uL Absolute Neuts (auto) 5.1 (2.0-8.3) x10*3/uL Absolute Nucleated RBC 0.000 (0.0-0.012) X10*3/uL Nucleated RBC % (auto) 0.0 (0.0-0.2) /100WBC Smear Tech's Comments VERIFIED PT 12.0 (10.0-13.1) SEC INR 1.0 (0.9-1.1) Sodium (135-145) mmol/L Potassium (3.3-5.1) mmol/L Chloride (96-108) mmol/L Carbon Dioxide (22-29) mmol/L Anion Gap (12-20) BUN (9-16) mg/dL Creatinine (0.5-1.4) mg/dL Estim Creat Clear Calc Estimated GFR Random Glucose (60-115) mg/dL Calcium (8.4-10.2) mg/dL Magnesium (1.6-2.6) mg/dL Total Bilirubin (0.0-1.0) mg/dL Direct Bilirubin (0.0-0.5) mg/dL AST (5-31) U/L ALT (0-31) U/L Alkaline Phosphatase (39-117) U/L Troponin I High Sens (<3.5-17.0) ng/L Total Protein (6.5-8.0) g/dL Albumin (3.5-5.0) g/dL COVID-19 (MELE) Negative (Negative) COVID-19 Clin Com See Note 09/06/22 09/06/22 Range/Units 17:34 17:34 WBC (4.8-10.8) X10*3/uL RBC (4.20-5.50) X10*6/uL Hgb (12.0-16.0) g/dl Hct (37.0-47.0) % MCV (80.0-98.0) fL MCH (27.0-33.0) pg MCHC (31.0-35.0) g/dl RDW (11.0-16.0) % Plt Count (160-400) X10*3/uL MPV (9.4-12.3) fL Immature Gran % (Auto) (0.0-0.4) % Neut % (Auto) (45-73) % Lymph % (Auto) (20-40) % [place] % (Auto) (2-11) % Eos % (Auto) (0-4) % Baso % (Auto) (0-2) % Lymph # (Auto) (1.2-4.9) X10*3/uL [place] # (Auto) (0.1-1.2) X10*3/uL Eos # (Auto) (0.0-0.4) X10*3/uL Baso # (Auto) (0.0-0.2) X10*3/uL Abs Immat Gran (auto) (0.00-0.03) X10*3/uL Absolute Neuts (auto) (2.0-8.3) x10*3/uL Absolute Nucleated RBC (0.0-0.012) X10*3/uL Nucleated RBC % (auto) (0.0-0.2) /100WBC Smear Tech's Comments PT (10.0-13.1) SEC INR (0.9-1.1) Sodium 139 (135-145) mmol/L Potassium 3.9 (3.3-5.1) mmol/L Chloride 107 (96-108) mmol/L Carbon Dioxide 23 (22-29) mmol/L Anion Gap 13 (12-20) BUN 11 (9-16) mg/dL Creatinine 0.63 (0.5-1.4) mg/dL Estim Creat Clear Calc 113.6 Estimated GFR > 60 Random Glucose 89 (60-115) mg/dL Calcium 9.3 (8.4-10.2) mg/dL Magnesium 1.9 (1.6-2.6) mg/dL Total Bilirubin 0.2 (0.0-1.0) mg/dL Direct Bilirubin < 0.2 (0.0-0.5) mg/dL AST 18 (5-31) U/L ALT 12 (0-31) U/L Alkaline Phosphatase 60 (39-117) U/L Troponin I High Sens < 3.5 (<3.5-17.0) ng/L Total Protein 6.6 (6.5-8.0) g/dL Albumin 4.2 (3.5-5.0) g/dL COVID-19 (MELE) (Negative) COVID-19 Clin Com <Lilly Liu NP - Last Filed: 09/06/22 20:21> Independent Interpretation I performed an independent interpretation of an: EKG, Plain X-Ray and CT Scan <Lilly Liu NP - Last Filed: 09/06/22 20:21> Interpretation: Sinus bradycardia Otherwise normal ECG When compared with ECG of 27-JUL-2018 09:09, No significant change was found Vent. rate 59 BPM MT interval 126 ms QRS duration 78 ms QT/QTc 396/392 ms P-R-T axes 61 2 10 06-SEP-2022 17:27:38 <COURTNEY Orantes Last Filed: 09/06/22 20:21> Radiology Impression Discussion of test interpretation with radiology: I have reviewed the radiologist's reading. <Lilly Liu NP - Last Filed: 09/06/22 20:21> Radiologist Impression: FINDINGS: CT Head: There is no evidence of acute intracranial hemorrhage or edematous territorial infarction. There is no abnormal attenuation within the brain parenchyma. Mcgill-white matter differentiation is preserved. The ventricles are normal in size and configuration. No evidence for obstructive hydrocephalus. No abnormal mass effect or midline shift. No extra-axial fluid collections. No pathologic intra-axial enhancement or regional oligemia. No acute soft tissue or osseous abnormalities. The mastoid air cells and paranasal sinuses are clear. CT Neck: The thyroid gland and remaining cervical soft tissues are within normal limits. Degenerative disc space narrowing and uncovertebral hypertrophy at C5-C6 and to a lesser extent C6-C7 CT Upper Chest: The visualized lung apices and upper mediastinum are within normal limits. Neck CTA: Aortic Arch: Normal contour and caliber. Classic 3 vessel branching pattern of the aortic arch. Great Vessel Origins: No significant stenosis of the branch origins. Right Common Carotid Artery: No focal stenosis or occlusion. Cervical Right Internal Carotid Artery: Normal opacification without focal stenosis or occlusion. Left Common Carotid Artery: No focal stenosis or occlusion. Cervical Left Internal Carotid Artery: Normal opacification without focal stenosis or occlusion. Cervical Right Vertebral Artery: No focal stenosis or occlusion. Cervical Left Vertebral Artery: No focal stenosis or occlusion. Brain CTA: CTA of the head is somewhat technically limited secondary to extensive venous contamination Intracranial Internal Carotid Arteries: No focal stenosis or occlusion. Right Anterior Cerebral Artery: Normal A1 segment. Normal opacification of the distal MEKA segments. Left Anterior Cerebral Artery: Normal A1 segment. Normal opacification of the distal MEKA segments. Anterior Communicating Artery: Normal. Right Middle Cerebral Artery: Normal M1 segment of the MCA without focal stenosis or occlusion. Normal arborization of the distal segments. Left Middle Cerebral Artery: Normal M1 segment of the MCA without focal stenosis or occlusion. Normal arborization of the distal segments. Right Vertebral Artery: Normal V4 segment. Left Vertebral Artery: Normal V4 segment. Basilar Artery: Normal without focal stenosis or occlusion. Normal appearance of the proximal superior cerebellar arteries. Right Posterior Cerebral Artery: Normal P1 segment. Normal opacification of the distal WARP DRESSER segments. Left Posterior Cerebral Artery: Normal P1 segment. Normal opacification of the distal WARP DRESSER segments. Normal opacification of the superior sagittal, straight, transverse, and sigmoid sinuses. CT/CT angio head neck IMPRESSION: ? 1.? No acute intracranial abnormality including hemorrhage, mass effect, hydrocephalus, or acute territorial edematous infarction. ? 2.? No arterial high grade stenosis or large vessel occlusion in the head or neck.? No evidence of arterial dissection. CTA of the head is somewhat technically limited due to extensive venous contamination EXAMINATION: XR chest 2V CLINICAL INFORMATION: Reason for Exam arm pain/back pain/neck pain COMPARISON: July 2018? TECHNIQUE: XR chest 2V Lungs and Sharmila: Both lungs are clear. Pleura: Normal. Costophrenic angles are sharp. No pneumothorax. Heart: The heart is normal in size. Mediastinum: The mediastinum is within normal limits.. Bones: Skeletal structures included are normal for patient's age. XR/XR chest 2V IMPRESSION: No radiographic evidence of acute cardiopulmonary disease. <Lilly Liu NP - Last Filed: 09/06/22 20:21> External Record Review External record reviewed: Inpatient record, Outpatient record and Prior outpatient labs <Lilly Liu NP - Last Filed: 09/06/22 20:21> Chronic Conditions Patient?s care impacted by: Hypertension <Lilly Liu NP - Last Filed: 09/06/22 20:21> Discharge Plan Discharge Clinical Impression: Muscle spasm, Arm weakness, Headache <Mackenzie Barksdale NP - Last Filed: 09/06/22 17:18> Instructions: Acute Headache (ED), Weakness (ED), Muscle Spasm (ED) <Mackenzie Barksdale NP - Last Filed: 09/06/22 17:18> Additional Instructions: You were evaluated for sudden onset of a left-sided headache with neck pain radiating down to her arm. EKG is normal sinus rhythm, cardiac enzymes are negative. We completed a CT angio of your head and neck. There were no acute findings requiring emergent intervention. No indication of stroke or vessel occlusion. Incidental findings of degenerative disc disease in her cervical spine C5-C6 and C6-C7. Please follow-up with primary care physician as you may need a physical therapy referral. This could possibly be a muscle spasm. If symptoms persist, or you have any worsening symptoms including but not limited to changes in vision, numbness, loss of balance, please present to the emergency department for evaluation. Thank you for choosing this emergency department for evaluation. Please follow-up with primary care physician as needed. Return to the emergency department for any new, concerning, or worsening symptoms. <Mackenzie Barksdale NP - Last Filed: 09/06/22 17:18> Prescriptions: No Action metronidazole 500 mg tablet 500 mg PO BID 7 Days Qty: 14 0RF Mirena 20 mcg/24 hours (6 yrs) 52 mg intrauterine device 1 device intrauterine ONCE Qty: 1 0RF Mirena 20 mcg/24 hours (6 yrs) 52 mg intrauterine device intrauterine terconazole 0.8 % cream 1 appful vaginal BEDTIME 3 Days Qty: 20 0RF <Mackenzie Barksdale NP - Last Filed: 09/06/22 17:18>
[2022-09-06 17:17] VITALS: BP 151/96; PULSE 68; RESP 18; TEMP 36.6; O2SAT 98; BMI 29.3
--- NOTE | 2022-09-06 17:17 | ECG_ITS ---
Test Reason : CHEST PAIN Blood Pressure : / mmHG Vent. Rate : 059 BPM Atrial Rate : 059 BPM P-R Int : 126 ms QRS Dur : 078 ms QT Int : 396 ms P-R-T Axes : 061 002 010 degrees QTc Int : 392 ms Sinus bradycardia Otherwise normal ECG When compared with ECG of 27-JUL-2018 09:09, No significant change was found Referred By: Mackenzie Barksdale Electronically Signed By:DIANE RIVERS
[2022-09-06 17:52] LABS: Basophils Absolute Auto 0.1 X10*3/uL (0.0-0.2); Basophils Percent Auto 0.6 % (0-2); Eosinophils Absolute Auto 0.2 X10*3/uL (0.0-0.4); Eosinophils Percent Auto 1.8 % (0-4); Hematocrit 40.5 % (37.0-47.0); Hemoglobin 14.2 g/dl (12.0-16.0); Imm Gran Abs Auto 0.04 X10*3/uL (0.00-0.03); Imm Gran Pct Auto 0.3 % (0.0-0.4); Lymphocytes Percent Auto 50.4 % (20-40); Mean Corpuscular HGB Conc 35.1 g/dl (31.0-35.0); Mean Corpuscular Hemoglobin 31.4 pg (27.0-33.0); Mean Corpuscular Volume 89.6 fL (80.0-98.0); Mean Platelet Volume 10.3 fL (9.4-12.3); Monocytes Absolute Auto 0.6 X10*3/uL (0.1-1.2); Monocytes Percent Auto 5.2 % (2-11); Neutrophils Absolute Auto 5.1 x10*3/uL (2.0-8.3); Neutrophils Percent Auto 41.7 % (45-73); Platelet Count 294 X10*3/uL (160-400); Red Blood Count 4.52 X10*6/uL (4.20-5.50); Red Cell Distribution Width 12.1 % (11.0-16.0); SCAN SMEAR FLAG 1; White Blood Count 12.3 X10*3/uL (4.8-10.8)
[2022-09-06 17:56] LABS: COVID-19 Test Negative (Negative); IDNOW Serial# 16C4AD1C
[2022-09-06 17:58] LABS: Alanine Aminotransferase 12 U/L (0-31); Albumin Level 4.2 g/dL (3.5-5.0); Alkaline Phosphatase 60 U/L (39-117); Anion Gap 13 (12-20); Aspartate Amino Transferase 18 U/L (5-31); Bilirubin Direct < 0.2 mg/dL (0.0-0.5); Bilirubin Total 0.2 mg/dL (0.0-1.0); Blood Urea Nitrogen 11 mg/dL (9-16); Calcium 9.3 mg/dL (8.4-10.2); Carbon Dioxide 23 mmol/L (22-29); Chloride 107 mmol/L (96-108); Creatinine Clr Calc Pharmacy 113.6; Estimated Glomerular Filt Rate > 60; Glucose Random 89 mg/dL (60-115); Magnesium 1.9 mg/dL (1.6-2.6); Potassium 3.9 mmol/L (3.3-5.1); Sodium 139 mmol/L (135-145); Total Protein 6.6 g/dL (6.5-8.0)
[2022-09-06 18:05] LABS: Lymphocytes Absolute Auto 6.2 X10*3/uL (1.2-4.9); Troponin-I High Sensitivity < 3.5 ng/L (<3.5-17.0)
[2022-09-06 18:06] LABS: MANUAL DIFF FLAG SCAN; SLIDE REVIEW VERIFIED
[2022-09-06] MEDS: iohexoL 350 MG/ML 100 ML INFUS..BTL IV (18:59)
--- NOTE | 2022-09-06 21:04 | PC.NURSE ---
Pt aox3. Reports feeling I feel this heat inside my head . Zaid sob, itchy/tingling sensation. MLP aware.
--- NOTE | 2022-09-06 21:19 | PC.NURSE ---
IV line removed. Pt tolerated well. Discharge instructions reviewed with pt. Pt verbalizes understanding.
== END 2022-09-06 22:04 | disposition home or self-care (01) ==
PROVIDERS: Nurse Practitioner Family; Emergency Provider Emergency Medicine Emergency Medical Services; PCP Pediatrics
DX: R07.89 Other chest pain (principal); M62.838 Other muscle spasm; R53.1 Weakness; R51.9 Headache, unspecified; M54.2 Cervicalgia; M79.602 Pain in left arm; M79.601 Pain in right arm; Z20.822 Contact with and (suspected) exposure to COVID-19; Z20.828 Contact with and (suspected) exposure to other viral communicable diseases; Z79.899 Other long term (current) drug therapy
CPT/HCPCS: 36415; 70496; 70498; 71046; 80048; 80076; 83735; 84484; 85025; 85610; 87635; 93005; 99283; Q9967

== ENCOUNTER 2022-09-11 12:02 | Outpatient (REF) | payer MEDICARE, MEDICAID, SELFPAY ==
--- NOTE | ~2022-09-11 | MM_ITS ---
EXAMINATION: MM SCREENING DIGITAL BREAST TOMOSYNTHESIS, BILATERAL CLINICAL INFORMATION: Screening. Asymptomatic. The lifetime risk of breast cancer based on the Tyrer-Cuzick Model is 10%. COMPARISON: Mammography: 10/02/2020, 03/17/2019, 08/20/2017, 08/13/2017 (baseline). TECHNIQUE: Digital breast tomosynthesis is performed in both the craniocaudal and mediolateral oblique views along with computer-aided detection (CAD). Synthesized 2D images are generated from the tomosynthesis. FINDINGS: There are scattered areas of fibroglandular density (ACR BI-RADS breast composition Category b). Parenchymal pattern is similar to prior exams. There is no significant mass or architectural abnormality or developing density. No abnormal calcifications. Small dermal lesion again seen overlying right axilla on MLO view. There are some incidental dermal calcifications again seen posterior lower right breast. The axilla are unremarkable. There are no significant changes. MM/MM tomosynthesis screening BI IMPRESSION: No mammographic evidence of malignancy. ASSESSMENT: BI-RADS 2: Benign RECOMMENDATION: Routine annual mammography screening. This patient's information was entered into a reminder system with a target due date for their next mammogram.
== END 2022-09-11 12:03 | disposition home or self-care (01) ==
LOC: HO.MAMMO 12:02
PROVIDERS: PCP Pediatrics; Visit Provider Pediatrics
DX: Z12.31 Encounter for screening mammogram for malignant neoplasm of breast (principal)
CPT/HCPCS: 77063; 77067

== ENCOUNTER → 2023-06-24 10:43 | Outpatient (BNVA) | payer MEDICARE, MEDICAID, SELFPAY | PROVIDERS: PCP Pediatrics; Visit Provider Physician Assistant ==

== ENCOUNTER 2023-06-26 12:07 | Outpatient (AMB) | payer MEDICARE, MEDICAID, SELFPAY ==
--- NOTE | 2023-06-26 12:29 | AM.OFFWIN_ITS ---
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 Patient Tobacco Use Status: Current everyday Tobacco user Allergies vicodin Allergy (Unknown, Uncoded 06/26/23 12:32) abd pain, nausea Do you need a note to return to daycare/school/sports/work: Yes HPI HPI Comments History of Present Illness Details She presents to office with covid symptoms Wednesday onset of symptoms She has been taking Mucinex, Motrin, allergy pills Started with ST which has resolved +body aches, congestion, headache Minimum cough with some phlegm No fevers She took covid test this am which was negative PFSH Surgical History History of bilateral tubal ligation History of cholecystectomy Family History (Updated 06/25/23 @ 21:22 by Ursula Grant PA-C) Unknown No family history of colorectal cancer Social History Alcohol intake: never Patient Tobacco Use Status: Current everyday Tobacco user Cigarettes Per Day: 8 Sexual orientation: Straight/Heterosexual Gender identity: Female Review of Systems Const Reports body aches, Denies chills, Denies fever(s) and Reports headache(s) Eyes Denies blurry vision ENT Reports otalgia, Reports headache(s), Reports nasal congestion, Reports nasal discharge, Denies sore throat (previously but resolved) and Denies throat swelling Card Denies chest pain and Denies dyspnea Resp Denies dyspnea Neuro Reports headache(s) Aller/Immun Denies throat swelling Physical Exam Vital Signs: Last Vital Signs Temp 97.9 F 06/26/23 12:33 Pulse 74 06/26/23 12:33 BP 122/78 06/26/23 12:33 Pulse Ox 98 06/26/23 12:33 Oxygen Delivery Method Room Air 06/26/23 12:33 General: Non-toxic, NAD. Speaking full sentences. Skin: Warm dry throughout Eye: EOMI HENT: Airway patent. Uvula midline. No pharyngeal erythema or edema. 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 Bilateral canals clear. slight erythema to TMs without bulging. No TM perforation or hemotympanum noted. +rhinorrhea Respiratory: CTA bilaterally. No wheezes, rales or rhonchi Cardiac: RRR. No murmur MSK: Full ROM extremities. Neurology: A/O. No aphasia or facial droop. Gait without abnormality Psych: Good mood and affect Assessment & Plan Assessment & Plan (1) Upper respiratory infection: Code(s): J06.9 - Acute upper respiratory infection, unspecified Qualifiers: URI type: unspecified URI Qualified Code(s): J06.9 - Acute upper respiratory infection, unspecified Plan: Patient seen and evaluated. COVID test sent to lab Discussed tessalon and nasal spray use F/U with PCP Will call with covid result Patient gave verbal understanding and had no additional questions or concerns at time of discharge All questions answered Orders: Orders BinaxNOW Covid-19 Ag Today J06.9 - Acute upper respiratory infection, unspecified Medications: New benzonatate 100 mg PO BID-TID PRN 14 caps 0RF cough J06.9 - Acute upper respiratory infection, unspecified ipratropium bromide administer into each nostril 2 sprays intranasal BID-TID 7 days PRN 30 mL 0RF allergy symptoms J06.9 - Acute upper respiratory infection, unspecified Coding Level of Care Code Est Pt Level 3 (70182) Diagnoses Upper respiratory tract infection, unspecified type J06.9 URI type: unspecified URI
[2023-06-26 12:33] VITALS: BP 122/78; PULSE 74; TEMP 36.6; O2SAT 98
== END 2023-06-26 13:52 | disposition home or self-care (01) ==
PROVIDERS: PCP Pediatrics; Visit Provider Physician Assistant
DX: J06.9 Acute upper respiratory infection, unspecified (principal)
CPT/HCPCS: 99213

== ENCOUNTER 2023-06-26 12:59 | Outpatient (REF) | payer MEDICARE, MEDICAID, SELFPAY ==
[2023-06-26 13:26] LABS: Binax Internal Control QC Valid; Binax Now Covid-19 Ag Positive (Negative); Binax Performed by: HO.TORG
== END 2023-06-26 13:00 | disposition home or self-care (01) ==
LOC: HO.HMGCLDS 12:59
PROVIDERS: PCP Pediatrics; Visit Provider Physician Assistant
DX: J06.9 Acute upper respiratory infection, unspecified (principal); Z11.52 Encounter for screening for COVID-19
CPT/HCPCS: 87811

== ENCOUNTER 2023-07-10 09:22 | Outpatient (AMB) | payer MEDICARE, MEDICAID, SELFPAY ==
[2023-07-10 10:49] VITALS: BP 102/70; PULSE 96; TEMP 36.7; O2SAT 98; BMI 30.6
--- NOTE | 2023-07-10 10:49 | MHC.OFFWIV ---
Intake Vital Signs 07/10/23 10:49 Height 5 ft 4 in Weight 178 lb BMI 30.6 BP 102/70 Blood Pressure Location Rt brachial Position Sitting Pulse 96 Pulse Source Pulse Oximeter Temp 98.1 F Temp Source Oral Pulse Oximetry (%) 98 Oxygen Delivery Method Room Air Intake Visit Reasons: EP, right side and abdominal pain (masked) Intake Note: Pt is here today c/o Rt lower back pain into abdominal discomfort x3days Patient Tobacco Use Status: Current everyday Tobacco user Allergies vicodin Allergy (Unknown, Uncoded 07/10/23 10:50) abd pain, nausea HPI HPI Comments History of Present Illness Details 47-year-old female that presents for bilateral low back pain radiating into the groin region. 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 Fever or chills does have a history of back a little different [facility] Surgical History History of bilateral tubal ligation History of cholecystectomy Family History (Updated 06/25/23 @ 21:22 by Ursula Grant PA-C) Unknown No family history of colorectal cancer Social History Alcohol intake: never Patient Tobacco Use Status: Current everyday Tobacco user Cigarettes Per Day: 8 Sexual orientation: Straight/Heterosexual Gender identity: Female Review of Systems [facility] [place] Physical Exam Vital Signs: Last Vital Signs Temp 98.1 F 07/10/23 10:49 Pulse 96 07/10/23 10:49 BP 102/70 07/10/23 10:49 Pulse Ox 98 07/10/23 10:49 Oxygen Delivery Method Room Air 07/10/23 10:49 BMI result Body Mass Index 30.6 Const General: cooperative, healthy appearing, no acute distress and alert Orientation/consciousness: patient oriented x3 Limitations: no limitations HEENT Head: Yes normal to inspection Ears: hearing grossly normal bilaterally General nose exam: Normal external nose present Resp Effort & Inspection: normal respiratory effort and able to speak in complete sentences Cardio Rate: regular rate GI Inspection: Yes normal to inspection Palpation (GI): Soft to palpation and nontender Back/Spine/Pelvis Other: No CVA tenderness Skin General skin exam: no rashes or lesions noted Neuro General: patient oriented x3 Extrem General: Yes normal to inspection Results AMB Urinalysis, Automated UA Leukoctes 0 Lucia/uL Last Edit by Maite Vila CMA on 07/10/23 11:03 UA Nitrite Negative Last Edit by Maite Vila CMA on 07/10/23 11:03 UA Urobilinogen 0.2 mg/dL Last Edit by Maite Vila CMA on 07/10/23 11:03 UA Protein 0 mg/dL Last Edit by Maite Vila CMA on 07/10/23 11:03 UA pH 6.0 Last Edit by Maite Vila CMA on 07/10/23 11:03 UA Blood 0 Pop/uL Last Edit by Maite Vila CMA on 07/10/23 11:03 UA Specific [place] 1.025 Last Edit by Maite Vila CMA on 07/10/23 11:03 UA Ketone Negative Last Edit by Maite Vila CMA on 07/10/23 11:03 UA Bilirubin 0 mg/dL Last Edit by Maite Vila CMA on 07/10/23 11:03 UA Glucose 0 mg/dL Last Edit by Maite Vila CMA on 07/10/23 11:03 Results Reviewed Results Reviewed: Laboratory Last Values Urine pH (Auto) 6.0 07/10/23 10:55 Specific [place] (Auto) 1.025 07/10/23 10:55 Urine Protein (Auto) 0 mg/dL 07/10/23 10:55 Glucose (UA)(Auto) 0 mg/dL 07/10/23 10:55 Urine Ketones (Auto) Negative 07/10/23 10:55 Urine Blood (Auto) 0 Pop/uL 07/10/23 10:55 Urine Nitrite (Auto) Negative 07/10/23 10:55 Urine Bilirubin (Auto) 0 mg/dL 07/10/23 10:55 Urine Urobilinogen (Auto) 0.2 mg/dL 07/10/23 10:55 Leukocyte Esterase (Auto) 0 Lucia/uL 07/10/23 10:55 Assessment & Plan Assessment & Plan (1) Back pain: Code(s): M54.9 - Dorsalgia, unspecified Qualifiers: Back pain location: low back pain Chronicity: acute Back pain laterality: bilateral Sciatica presence: without sciatica Qualified Code(s): M54.50 - Low back pain, unspecified Plan: VSS. Exam was unremarkable note to be tenderness bili exam benign. Unclear etiology of patient's pain could be musculoskeletal in nature Low suspicion gallbladder pathology is patient is post cholecystectomy urinalysis negative. Recommend continued symptomatic treatment return precautions given Orders: Orders AMB Urinalysis Automated Today Z13.9 - Encounter for screening, unspecified Coding Level of Care Code Est Pt Level 3 (67914) Diagnoses Acute bilateral low back pain without sciatica M54.50 Back pain location: low back pain Chronicity: acute Back pain laterality: bilateral Sciatica presence: without sciatica
== END 2023-07-10 11:33 | disposition home or self-care (01) ==
PROVIDERS: PCP Pediatrics; Visit Provider Physician Assistant
DX: M54.50 Low back pain, unspecified (principal)
CPT/HCPCS: 81003; 99213

== ENCOUNTER 2023-07-30 18:57 | Emergency (ER) | payer MEDICARE, MEDICAID, SELFPAY ==
--- NOTE | ~2023-07-30 | XR_ITS ---
EXAMINATION: XR CHEST CLINICAL INFORMATION: Chest pain COMPARISON: 09/06/2022 TECHNIQUE: 2 views of the chest were obtained. FINDINGS: No significant abnormality is noted involving the heart, lungs, mediastinum, bony thorax or soft tissues. XR/XR chest 2V IMPRESSION: Unremarkable examination.
[2023-07-30 19:30] VITALS: BP 155/79; PULSE 79; RESP 16; TEMP 37.2; O2SAT 99; BMI 30.1
--- NOTE | 2023-07-30 19:31 | ED_ITS ---
HPI - Chest Pain General Chief Complaint: General Medical Stated Complaint: lower back pain, headache, sob, dizzy Time Seen by Provider: 07/30/23 20:28 Source: patient Mode of arrival: ambulatory Limitations: no limitations History of Present Illness HPI narrative: patient comes to the emergency room complaining of multiple complaints, patient states that she started fighting a warm sensation throughout her body, some abdominal pain, some shortness of breath, lightheadedness, discomfort radiating throughout the chest and the back and torso. Within 10 minutes, all of her symptoms resolved. Patient denies any cardiac history, no syncope or near syncope. Patient states that she has had panic attacks in the past and it was similar but not the same. Related Data Home Medications Medication Instructions Recorded Confirmed levonorgestrel 21 mcg/24 hours (8 intrauterine 12/09/20 06/24/23 yrs) 52 mg intrauterine device (Mirena) gabapentin 300 mg capsule 300 mg PO TID 06/24/23 06/24/23 ibuprofen 800 mg tablet mg PO 06/24/23 06/24/23 Previous Rx's Medication Instructions Recorded bisacodyl 5 mg tablet,delayed 20 mg (4 x 5 mg) PO ONCE 06/24/23 release (Dulcolax (bisacodyl)) colonoscopy prep 1 day #4 tabs polyethylene glycol 3350 17 238 g PO ONCE PRN laxative effect 06/24/23 gram/dose oral powder (Miralax) 1 day #238 grams ipratropium bromide 21 mcg (0.03 2 spray intranasal BID-TID PRN 06/26/23 %) nasal spray allergy symptoms 7 days #30 mL Allergies Allergy/AdvReac Type Severity Reaction Status Date / Time vicodin Allergy Unknown abd pain, Uncoded 07/30/23 19:30 nausea Review of Systems 2 Review of Systems: Constitutional : No Weight loss, No Fever, No Chills, No Night Sweats, No Fatigue, No Malaise ENT/Mouth : No Hearing loss, No Ear Pain, No Nasal Congestion, No Sinus Pain, No Hoarseness, No sore throat, No Rhinorrhea, No Swallowing Difficulty Eyes: No Eye Pain, No Swelling, No Redness, No Foreign Body, No Discharge, No Vision Changes Cardiovascular : No Chest Pain, No SOB, No Dyspnea on Exertion, No Orthopnea, No Edema, No Palpitations Respiratory : No Cough, No Sputum, No Wheezing, No Smoke Exposure, No Dyspnea Gastrointestinal : No Nausea, No Vomiting, No Diarrhea, No Constipation, No abdominal Pain, No Hematochezia, No Melena Genitourinary : no irregular bleeding, No Dysuria, No Urinary Frequency, No Hematuria, No Urinary Incontinence, No Urgency, No Flank Pain, No Urinary Flow Changes, No Hesitancy Musculoskeletal : No joint pain, No Myalgias, No Joint Swelling Skin : No Skin Lesions, No rash Neuro : No Weakness, No Numbness, No Paresthesias, No Loss of Consciousness, No Dizziness, No Headache Psych : No Anxiety/Panic, No Depression, No SI/HI/AH/VH, No Social Issues, Heme/Lymph: No Bruising, No Bleeding,No Lymphadenopathy Endocrine : No Polyuria, No Polydipsia, No Temperature Intolerance [facility] Past Medical History Surgical History History of bilateral tubal ligation History of cholecystectomy Family History Family History (Updated 06/25/23 @ 21:22 by Ursula Grant PA-C) Unknown No family history of colorectal cancer Social History Social History Alcohol intake: never Patient Tobacco Use Status: Current everyday Tobacco user Cigarettes Per Day: 8 Advance Directives: No Advance Directives Information Provided: No Sexual orientation: Straight/Heterosexual Gender identity: Female Physical Exam 2 Vital Signs: Vital Signs: Last Vital Signs Temp 98.9 F 07/30/23 19:30 Pulse 79 07/30/23 19:30 Resp 16 07/30/23 19:30 BP 155/79 H 07/30/23 19:30 Pulse Ox 99 07/30/23 19:30 O2 Del Method Room Air 07/30/23 19:30 BMI result Body Mass Index 30.1 Const: Other: Appearance: Alert. Oriented X3. No acute distress. Eyes: Pupils equal, round and reactive to light. ENT: Pharynx normal. Neck: Normal inspection. Neck supple. No lymph nodes noted. No crepitus CVS: Normal heart rate and rhythm. Pulses normal. Normal S1 and S2 Respiratory: No respiratory distress. Breath sounds normal. No Wheezing. No rales Abdomen: Soft and nontender. No rigidity. No distention. Skin: Skin warm and dry. Normal skin color. Normal skin turgor. Extremities: No lower extremity edema. No Lacerations. No Rash Neuro: Oriented X 3. No motor deficit. No sensory deficit. Moving all extremities. No slurred speech. CN 2 through 12 grossly intact Psych: calm, cooperative, normal affect Course Course Course Narrative: This is an RME: Additional HPI, ROS, PE not included below will be deferred to primary provider. Umu is a 47 year old female pmhx disc herniation, asthma. Sudden onset of pain approximately 20 minutes prior to arrival, started as sharp pain diffuse across the lower back radiating into the abdomen up into the lower substernal chest with associated dizziness and shortness of breath. Tingling left hand in left lower extremity. Had a near syncopal episode. symptoms have overall improved but still remain. Medical Decision Making Medical Decision Making [facility] Narrative: -My interpretation of labs: Normal at baseline hematology, chemistry, LFTs, troponin - my interpretation of chest x-ray: No abnormalities - discussed with the patient that it is possible that she may have had panic attack Differential Diagnosis Differential Diagnoses: The differential diagnosis associated with the presentation includes ( anxiety, arrhythmia, near syncope) Lab Data [facility] Lab Attestation statement: I reviewed the patient's lab results. 07/30/23 19:47 07/30/23 19:47 Labs: Lab Results 07/30/23 Range/Units 19:47 WBC 11.5 H (4.8-10.8) X10*3/uL RBC 4.36 (4.20-5.50) X10*6/uL Hgb 13.5 (12.0-16.0) g/dl Hct 39.7 (37.0-47.0) % MCV 91.1 (80.0-98.0) fL MCH 31.0 (27.0-33.0) pg MCHC 34.0 (31.0-35.0) g/dl RDW 12.4 (11.0-16.0) % Plt Count 279 (160-400) X10*3/uL MPV 9.9 (9.4-12.3) fL Immature Gran % (Auto) 0.3 (0.0-0.4) % Neut % (Auto) 46.6 (45-73) % Lymph % (Auto) 45.2 H (20-40) % Morgan % (Auto) 5.4 (2-11) % Eos % (Auto) 1.9 (0-4) % Baso % (Auto) 0.6 (0-2) % Lymph # (Auto) 5.2 H (1.2-4.9) X10*3/uL Morgan # (Auto) 0.6 (0.1-1.2) X10*3/uL Eos # (Auto) 0.2 (0.0-0.4) X10*3/uL Baso # (Auto) 0.1 (0.0-0.2) X10*3/uL Abs Immat Gran (auto) 0.03 (0.00-0.03) X10*3/uL Absolute Neuts (auto) 5.3 (2.0-8.3) x10*3/uL Absolute Nucleated RBC 0.000 (0.0-0.012) X10*3/uL Nucleated RBC % (auto) 0.0 (0.0-0.2) /100WBC Smear Tech's Comments VERIFIED Sodium 142 (135-145) mmol/L Potassium 3.5 (3.3-5.1) mmol/L Chloride 106 (96-108) mmol/L Carbon Dioxide 26 (22-29) mmol/L Anion Gap 14 (12-20) BUN 10 (9-16) mg/dL Creatinine 0.84 (0.5-1.4) mg/dL Estim Creat Clear Calc 86.3 Estimated GFR > 60 Random Glucose 104 (60-115) mg/dL Calcium 8.7 D (8.4-10.2) mg/dL Total Bilirubin 0.3 (0.0-1.0) mg/dL AST 18 (5-31) U/L ALT 14 (0-31) U/L Alkaline Phosphatase 59 (39-117) U/L Troponin I High Sens < 2.7 (<3.5-17.0) ng/L Total Protein 7.0 (6.5-8.0) g/dL Albumin 4.0 (3.5-5.0) g/dL Radiology Impression Discussion of test interpretation with radiology: I have reviewed the radiologist's reading. Radiologist Impression: FINDINGS: No significant abnormality is noted involving the heart, lungs, mediastinum, bony thorax or soft tissues. XR/XR chest 2V IMPRESSION: Unremarkable examination. Discharge Plan Discharge Clinical Impression: Abdominal pain, Chest tightness, Anxiety Patient Disposition: Home, Self-Care Instructions: Anxiety (ED), Chest Pain (ED), Abdominal Pain (ED) Additional Instructions: Please follow-up with your primary care physician tomorrow. If you continue having recurrent symptoms, please talk to your primary care physician about a Holter monitor evaluation versus a cardiac stress test. If you have any worsening or new symptoms, please return to the emergency room or call 911 Prescriptions: No Action ipratropium bromide 21 mcg (0.03 %) spray,non-aerosol 2 spray intranasal BID-TID PRN (Reason: allergy symptoms) 7 Days Qty: 30 0RF Rx Instructions: administer into each nostril Mirena 20 mcg/24 hours (6 yrs) 52 mg intrauterine device 1 device intrauterine ONCE Qty: 1 0RF Mirena 20 mcg/24 hours (6 yrs) 52 mg intrauterine device intrauterine ibuprofen 800 mg tablet PO gabapentin 300 mg capsule 300 mg PO TID bisacodyl [Dulcolax (bisacodyl)] 5 mg tablet,delayed release (DR/EC) 20 mg PO ONCE 1 Days Qty: 4 0RF Rx Instructions: Day before procedure, prep day Take 4 tablets by mouth upon awakening followed by large glass of water polyethylene glycol 3350 [Miralax] 17 gram/dose powder 238 g PO ONCE PRN (Reason: laxative effect) 1 Days Qty: 238 0RF Rx Instructions: Take as directed by mouth the day before your procedure.
--- NOTE | 2023-07-30 19:40 | ECG_ITS ---
Test Reason : CHEST PAIN Blood Pressure : / mmHG Vent. Rate : 070 BPM Atrial Rate : 070 BPM P-R Int : 138 ms QRS Dur : 076 ms QT Int : 366 ms P-R-T Axes : 067 003 017 degrees QTc Int : 395 ms Normal sinus rhythm Normal ECG When compared with ECG of 06-SEP-2022 17:27, No significant change was found Referred By: Sonia Chambers Electronically Signed By:William Stewart
[2023-07-30 19:53] LABS: Basophils Absolute Auto 0.1 X10*3/uL (0.0-0.2); Basophils Percent Auto 0.6 % (0-2); Eosinophils Absolute Auto 0.2 X10*3/uL (0.0-0.4); Eosinophils Percent Auto 1.9 % (0-4); Hematocrit 39.7 % (37.0-47.0); Hemoglobin 13.5 g/dl (12.0-16.0); Imm Gran Abs Auto 0.03 X10*3/uL (0.00-0.03); Imm Gran Pct Auto 0.3 % (0.0-0.4); Lymphocytes Absolute Auto 5.2 X10*3/uL (1.2-4.9); Lymphocytes Percent Auto 45.2 % (20-40); MANUAL DIFF FLAG SCAN; Mean Corpuscular Volume 91.1 fL (80.0-98.0); Mean Platelet Volume 9.9 fL (9.4-12.3); Monocytes Absolute Auto 0.6 X10*3/uL (0.1-1.2); Monocytes Percent Auto 5.4 % (2-11); Neutrophils Absolute Auto 5.3 x10*3/uL (2.0-8.3); Neutrophils Percent Auto 46.6 % (45-73); Platelet Count 279 X10*3/uL (160-400); Red Blood Count 4.36 X10*6/uL (4.20-5.50); Red Cell Distribution Width 12.4 % (11.0-16.0); SCAN SMEAR FLAG 1; White Blood Count 11.5 X10*3/uL (4.8-10.8)
[2023-07-30 20:06] LABS: Alanine Aminotransferase 14 U/L (0-31); Alkaline Phosphatase 59 U/L (39-117); Anion Gap 14 (12-20); Aspartate Amino Transferase 18 U/L (5-31); Bilirubin Total 0.3 mg/dL (0.0-1.0); Blood Urea Nitrogen 10 mg/dL (9-16); Calcium 8.7 mg/dL (8.4-10.2); Carbon Dioxide 26 mmol/L (22-29); Chloride 106 mmol/L (96-108); Creatinine Clr Calc Pharmacy 86.3; Estimated Glomerular Filt Rate > 60; Glucose Random 104 mg/dL (60-115); Potassium 3.5 mmol/L (3.3-5.1); Sodium 142 mmol/L (135-145)
[2023-07-30 20:11] LABS: SLIDE REVIEW VERIFIED
[2023-07-30 20:13] LABS: Troponin-I High Sensitivity < 2.7 ng/L (<3.5-17.0)
[2023-07-30 21:25] VITALS: BP 107/73; PULSE 95; RESP 16; TEMP 36.8; O2SAT 95
== END 2023-07-30 21:26 | disposition home or self-care (01) ==
PROVIDERS: Nurse Practitioner Family; Emergency Provider Emergency Medicine; PCP Pediatrics
DX: F41.9 Anxiety disorder, unspecified (principal); R07.89 Other chest pain; R10.9 Unspecified abdominal pain; R06.02 Shortness of breath; F17.210 Nicotine dependence, cigarettes, uncomplicated
CPT/HCPCS: 36415; 71046; 80053; 84484; 85025; 93005; 99283; 99284

== ENCOUNTER → 2023-07-30 19:40 | Outpatient (BNV) | payer MEDICARE, MEDICAID, SELFPAY | PROVIDERS: Emergency Provider Emergency Medicine; PCP Pediatrics; Visit Provider Internal Medicine Cardiovascular Disease | DX: R07.9 Chest pain, unspecified (principal) | CPT/HCPCS: 93010 ==

== ENCOUNTER → 2023-08-25 09:56 | Outpatient (REF) | payer MEDICARE, MEDICAID, SELFPAY ==
--- NOTE | 2023-08-25 09:59 | HM_ITS ---
Conclusion: 1. Patient was monitored for total period of 3 days 2. Baseline was normal sinus rhythm with average heart of 74 beats per minute 3. No significant arrhythmias or pauses noted 4. No patient reported events MTDD
== END ==
LOC: HO.CARD 09:56
PROVIDERS: Visit Provider Pediatrics
DX: R00.2 Palpitations (principal)
CPT/HCPCS: 93242

== ENCOUNTER → 2023-08-25 09:59 | Outpatient (BNV) | payer MEDICARE, MEDICAID, SELFPAY | PROVIDERS: Visit Provider Internal Medicine Cardiovascular Disease | DX: R00.1 Bradycardia, unspecified (principal) | CPT/HCPCS: 93244 ==

== ENCOUNTER 2023-09-16 09:48 | Outpatient (AMB) | payer MEDICARE, MEDICAID, SELFPAY ==
--- NOTE | 2023-09-16 10:04 | MHC.OFFVIS ---
Intake Vital Signs 09/16/23 10:07 Height 5 ft 4 in Weight 171 lb 15.369 oz BMI 29.5 BP 124/91 H Blood Pressure Location Lt brachial Position Sitting Pulse 68 Intake Visit Reasons: r/s from 08/18/2023 abdominal pain Intake Note: Radha presents in the office as a follow up for abdominal pains. CC: She states that she has been having issues with her stomach - has gone on for the past few years. She gets pains in her stomach that go up to her chest and in her arm. Ended in the ED and it turned to be just a panic attack. She refers to them as episodes - she gets nausea, pains in her side and back, she gets dizzy and light headed. It lasts up to 10 minutes and then it calms down. Bowels are not hard but not diarrhea. She states she does have to push more often than usual. Allergies vicodin Allergy (Unknown, Uncoded 09/16/23 10:07) abd pain, nausea Medication List - Last Reconciled 09/16/23 by Ursula Grant PA-C buspirone 5 mg PO DAILY PRN ibuprofen mg PO ipratropium bromide 2 sprays intranasal BID-TID PRN 7 days levonorgestrel (Mirena) intrauterine sertraline (Zoloft) 50 mg PO DAILY HPI HPI Comments History of Present Illness Details A 48 y/o female - tetelvisit in June- for screening colonoscopy- she is scheduled. She is here with epigastric pain- 'episodes LUQ pain- radiates to back- nausea, dizzy, lasts about 5-8 minutes- about 2 x a wk- she says it feels like when she had gallbladder issues however she had that removed many years ago. Back in July had episode-= felt in her chest- went to ED- Had cardiac w/u no findings- DX panic attacks Susannah > 20 yrs ago for multiple stones- infected - Appetite is good, no acid reflux, hematemesis, hematochezia fever or chills PFSH Surgical History History of bilateral tubal ligation History of cholecystectomy Family History (Updated 06/25/23 @ 21:22 by Ursula Gratn PA-C) Unknown No family history of colorectal cancer Social History Alcohol intake: never Patient Tobacco Use Status: Current everyday Tobacco user Cigarettes Per Day: 8 Sexual orientation: Straight/Heterosexual Gender identity: Female Review of Systems Const All systems reviewed & are unremarkable except as noted in HPI and below Card Denies chest pain and Denies dyspnea Resp Denies dyspnea GI Reports abdominal pain and Denies heartburn Physical Exam Vital Signs: Last Vital Signs Pulse 68 09/16/23 10:07 BP 124/91 H 09/16/23 10:07 BMI result Body Mass Index 29.5 Const General: cooperative, healthy appearing, comfortable and no acute distress Orientation/consciousness: patient oriented x3 Limitations: no limitations Eyes Sclerae: sclerae normal Resp Effort & Inspection: normal respiratory effort and able to speak in complete sentences Auscultation: clear to auscultation bilaterally, no rales, no rhonchi and no wheezes Cardio Rate: regular rate Rhythm: regular rhythm Heart sounds: S1 normal heart sound present and S2 normal heart sound present GI Palpation (GI): Soft to palpation, nontender and No Rebound tenderness present Auscultation: normal bowel sounds Skin General skin exam: no rashes or lesions noted Neuro General: patient oriented x3 Extrem General: Yes full ROM Psych Appearance: grossly normal and well kempt Mental Status: mental status grossly normal Speech and movement: Normal speech and movement present Affect: normal affect Attitude: cooperative Thought process: Normal thought process present Thought content: Normal thought content present Insight: Good insight present (Psych) Judgement: Good judgement present (Psych) Results Reviewed Results Reviewed: 08/2023- ED-Normal sinus rhythm Normal ECG When compared with ECG of 06-SEP-2022 17:27, No significant change was found Assessment & Plan Assessment & Plan (1) Abdominal pain: Comment: new prob- prev tele for colo nrml enzymes- Code(s): R10.9 - Unspecified abdominal pain Plan: HP- UBT U/S- CBD Plan u/s labs If need EGD will add Orders: Orders US abdomen complete Today R10.9 - Unspecified abdominal pain Complete Blood Count Auto Diff Today R10.9 - Unspecified abdominal pain Comprehensive Met. Panel Today R10.9 - Unspecified abdominal pain Lipase Today R10.9 - Unspecified abdominal pain H Pylori Breath Test Today A04.8 - Other specified bacterial intestinal infections Patient Instructions: Plasant 48 y/o female s/p susannah- abdominal pain u/s-comment CBD labs call with concerns Call for result HP Coding Level of Care Code New Pt Level 3 (52066) Diagnoses Abdominal pain R10.9 Time Spent (min) 30 Comment new prob
[2023-09-16 10:07] VITALS: BP 124/91; PULSE 68; BMI 29.5
== END 2023-09-16 11:17 | disposition home or self-care (01) ==
PROVIDERS: PCP Pediatrics; Visit Provider Physician Assistant
DX: R10.9 Unspecified abdominal pain (principal)
CPT/HCPCS: 99203

== ENCOUNTER 2023-09-16 09:48 | Outpatient (REF) | payer MEDICARE, MEDICAID, SELFPAY ==
[2023-09-19 14:29] LABS: H Pylori Breath Test Negative (Negative)
== END 2023-09-16 09:49 | disposition home or self-care (01) ==
LOC: HO.LAB 09:48
PROVIDERS: PCP Pediatrics; Visit Provider Physician Assistant
DX: A04.8 Other specified bacterial intestinal infections (principal); R10.12 Left upper quadrant pain; Z79.899 Other long term (current) drug therapy
CPT/HCPCS: 83013; 99202

== ENCOUNTER 2023-09-17 08:08 | Outpatient (REF) | payer MEDICARE, MEDICAID, SELFPAY ==
--- NOTE | ~2023-09-17 | MM_ITS ---
EXAMINATION: MM SCREENING DIGITAL BREAST TOMOSYNTHESIS, BILATERAL CLINICAL INFORMATION: Screening. Asymptomatic. COMPARISON: Mammography: 09/11/2022, 10/02/2020, 03/17/2019, 08/20/2017, 08/13/2017 (baseline). TECHNIQUE: Digital breast tomosynthesis is performed in both the craniocaudal and mediolateral oblique views along with computer-aided detection (CAD). Synthesized 2D images are generated from the tomosynthesis. FINDINGS: There are scattered areas of fibroglandular density (ACR BI-RADS breast composition Category b). There are a few dermal calcifications in the left inframammary fold. Small dermal lesion again noted overlying the right axilla. There are no suspicious masses, suspicious grouped calcifications, or areas of architectural distortion in either breast. The parenchymal pattern is stable from prior exams. No skin or axillary abnormalities. MM/MM tomosynthesis screening BI IMPRESSION: No mammographic evidence of malignancy. No significant interval change. ASSESSMENT: BI-RADS BI-RADS 2 - Benign Findings RECOMMENDATION: Routine annual mammography screening. 1 year F/U This examination should not preclude the clinical evaluation of a suspicious palpable abnormality. This patient's information was entered into a reminder system with a target due date for their next mammogram.
== END 2023-09-17 08:09 | disposition home or self-care (01) ==
LOC: HO.MAMMO 08:08
PROVIDERS: PCP Pediatrics; Visit Provider Pediatrics
DX: Z12.31 Encounter for screening mammogram for malignant neoplasm of breast (principal)
CPT/HCPCS: 77063; 77067

== ENCOUNTER → 2023-09-17 08:30 | Outpatient (BNV) | payer MEDICARE, MEDICAID, SELFPAY | PROVIDERS: PCP Pediatrics; Visit Provider Radiology Diagnostic Radiology | DX: Z12.31 Encounter for screening mammogram for malignant neoplasm of breast (principal) | CPT/HCPCS: 77063; 77067 ==

== ENCOUNTER 2023-09-23 09:32 | Outpatient (REF) | payer MEDICARE, MEDICAID, SELFPAY ==
[2023-09-23 11:04] LABS: MANUAL DIFF FLAG NO
[2023-09-23 11:12] LABS: Basophils Absolute Auto 0.1 X10*3/uL (0.0-0.2); Basophils Percent Auto 0.6 % (0-2); Eosinophils Absolute Auto 0.2 X10*3/uL (0.0-0.4); Eosinophils Percent Auto 2.1 % (0-4); Hematocrit 41.1 % (37.0-47.0); Hemoglobin 14.3 g/dl (12.0-16.0); Imm Gran Abs Auto 0.03 X10*3/uL (0.00-0.03); Imm Gran Pct Auto 0.3 % (0.0-0.4); Lymphocytes Absolute Auto 4.1 X10*3/uL (1.2-4.9); Lymphocytes Percent Auto 37.4 % (20-40); Mean Corpuscular HGB Conc 34.8 g/dl (31.0-35.0); Mean Corpuscular Hemoglobin 31.6 pg (27.0-33.0); Mean Corpuscular Volume 90.9 fL (80.0-98.0); Monocytes Absolute Auto 0.6 X10*3/uL (0.1-1.2); Monocytes Percent Auto 5.2 % (2-11); Neutrophils Absolute Auto 5.9 x10*3/uL (2.0-8.3); Neutrophils Percent Auto 54.4 % (45-73); Platelet Count 288 X10*3/uL (160-400); Red Blood Count 4.52 X10*6/uL (4.20-5.50); Red Cell Distribution Width 12.4 % (11.0-16.0); White Blood Count 10.9 X10*3/uL (4.8-10.8)
[2023-09-23 11:50] LABS: Alanine Aminotransferase 17 U/L (0-31); Albumin Level 4.1 g/dL (3.5-5.0); Alkaline Phosphatase 68 U/L (39-117); Anion Gap 11 (12-20); Aspartate Amino Transferase 21 U/L (5-31); Bilirubin Total 0.3 mg/dL (0.0-1.0); Blood Urea Nitrogen 9 mg/dL (9-16); Calcium 9.1 mg/dL (8.4-10.2); Carbon Dioxide 24 mmol/L (22-29); Chloride 108 mmol/L (96-108); Estimated Glomerular Filt Rate > 60; Glucose Random 93 mg/dL (60-115); Lipase 16 U/L (8-78); Potassium 4.1 mmol/L (3.3-5.1); Sodium 139 mmol/L (135-145); Total Protein 7.2 g/dL (6.5-8.0)
== END 2023-09-23 09:33 | disposition home or self-care (01) ==
LOC: HO.10HDL 09:32
PROVIDERS: Visit Provider Physician Assistant
DX: R10.9 Unspecified abdominal pain (principal)
CPT/HCPCS: 36415; 80053; 83690; 85025

== ENCOUNTER 2023-10-01 08:11 | Outpatient (REF) | payer MEDICARE, MEDICAID, SELFPAY ==
--- NOTE | ~2023-10-01 | US_ITS ---
EXAMINATION: US ABDOMEN COMPLETE CLINICAL INFORMATION: Unspecified abdominal pain. Status post cholecystectomy. Normal enzymes. COMPARISON: CT abdomen and pelvis 07/11/2020. Renal ultrasound 09/08/2017. TECHNIQUE: Real-time imaging of the abdominal viscera. Limited visualization due to bowel gas. FINDINGS: PANCREAS: Limited visualization of pancreatic tail and head. Imaged portion of pancreatic body is unremarkable. ABDOMINAL AORTA: Nonaneurysmal. INFERIOR VENA CAVA: Visualized portions are normal. LIVER: Increased hepatic parenchymal heterogeneity and echogenicity could be associated with hepatocellular disease/hepatic steatosis and substantially limits visualization. Correlation with liver function tests and clinical exam recommended to determine further management. 1.2 x 1.3 x 1.2 cm right hepatic echogenic lesion. CT abdomen and pelvis of July 11, 2020 demonstrated a 1 cm hypodense lesion. GALLBLADDER: Surgically absent. COMMON BILE DUCT: Normal in caliber measuring 0.34 cm in diameter. RIGHT KIDNEY: 11.0 x 1.1 x 1.6 cm right renal mid pole cyst with peripheral echogenic foci characteristic of calcification. Limited visualization. No hydronephrosis or renal calculi. The kidney measures 10.5 cm in maximum dimension. LEFT KIDNEY: No hydronephrosis. No renal calculi. Limited visualization. The kidney measures 12.2 cm in maximum dimension. SPLEEN: Normal. The spleen measures 7.9 cm in maximum dimension. FREE FLUID: None. US/US abdomen complete IMPRESSION: 1. Increased hepatic parenchymal heterogeneity and echogenicity could be associated with hepatocellular disease/hepatic steatosis and substantially limits visualization. Correlation with liver function tests and clinical exam recommended to determine further management. 2. A 1.3 cm right hepatic echogenic lesion. CT abdomen and pelvis July 11, 2020 demonstrated a 1 cm hypodense lesion. MRI recommended for further evaluation. 3. A 1.6 cm right renal mid pole cyst with peripheral echogenic foci characteristic of calcification.
== END 2023-10-01 08:12 | disposition home or self-care (01) ==
LOC: HO.US 08:11
PROVIDERS: Visit Provider Physician Assistant
DX: R10.9 Unspecified abdominal pain (principal)
CPT/HCPCS: 76700

== ENCOUNTER 2023-10-29 16:46 | Outpatient (REF) | payer MEDICARE, MEDICAID, SELFPAY ==
--- NOTE | ~2023-10-29 | MR_ITS ---
EXAMINATION: MR ABDOMEN WITHOUT AND WITH CONTRAST CLINICAL INFORMATION: Abdominal pain. COMPARISON: Abdomen ultrasound from 10/01/2023. Abdomen CT from 07/11/2020. TECHNIQUE: MR abdomen was performed on a high-field magnet without and with use of 7.5 mL intravenous Gadavist contrast. Postcontrast images are performed in multiphase dynamic sequences. Imaging was performed in 3 planes. FINDINGS: LUNG BASES: Normal. No pulmonary consolidation or pleural effusion. LIVER: Liver has normal size, contour and parenchymal signal. No cirrhotic morphology or steatosis. A 1.3 cm T2 hyperintense focus within hepatic segment 7 demonstrates a centripetal pattern of contrast opacification. It is incompletely opacified on the venous phase images. This corresponds to the homogeneously hyperechoic focus seen on 10/01/2023. The imaging findings are diagnostic of cavernous hemangioma. This lesion was 1.2 cm on . GALLBLADDER AND BILIARY TREE: Gallbladder is surgically absent. No dilated bile ducts. PANCREAS: Normal. No edema, pancreatic ductal dilatation or mass. SPLEEN: Normal. ADRENAL GLANDS: Normal. KIDNEYS: Kidneys are normal in size and enhance symmetrically. 0.7 cm and 1.4 cm simple cysts of the upper pole of the right kidney. No renal imaging follow-up is recommended for simple cysts. No hydronephrosis. BOWEL AND PERITONEUM: Stomach is unremarkable. No dilated loops of bowel. No bowel wall thickening or mesenteric fat stranding. No abdominal free fluid. VASCULATURE: Abdominal aorta is normal in caliber and its branches are widely patent. Inferior vena cava is normal. LYMPH NODES: No pathologic sized lymph nodes in the abdomen. SKELETAL: Unremarkable. OTHER: The single shot fast spin-echo T2-weighted images acquired at a large [id number]-[id number] demonstrate a left-sided subserosal uterine leiomyoma that measures up to 3.3 cm and remains similar in size compared to 07/11/2020. MR/MR abdomen wo/w con IMPRESSION: * 1.3 cm cavernous hemangioma of the liver has not significantly changed in size compared to 07/11/2020. Otherwise, the liver is normal. No evidence of hepatic steatosis. * Benign Bosniak category 1 cysts of the right kidney. * 3.3 cm subserosal uterine leiomyoma is unchanged in size compared to 07/11/2020.
[2023-10-29] MEDS: gadobutroL 7.5 ML VIAL IVPUSH (17:52)
== END 2023-10-29 16:47 | disposition home or self-care (01) ==
LOC: HO.MRI 16:46
PROVIDERS: PCP Pediatrics; Visit Provider Physician Assistant
DX: R10.9 Unspecified abdominal pain (principal)
CPT/HCPCS: 74183; A9585

== ENCOUNTER 2023-11-04 08:53 | Day surgery (SDC) | payer MEDICARE, MEDICAID, SELFPAY ==
[2023-11-02 08:24] VITALS: BMI 29.3
--- NOTE | 2023-11-02 15:03 | HO.ANESPROP2 ---
Documented by User: Maria Fernanda Mcfadden NP 11/02/23 15:05 HPI - Anesthesia Eval Consult details Narrative: 48yo F for Upper Endoscopy and Colonoscopy Recent workup by PCP for palps with negative EKG and Holter PMFSH Active Problems Active Problems: All Active Problems Abdominal pain (Chronic) Upper respiratory infection (Acute) Encounter for screening colonoscopy (Acute) Bacterial vaginosis (Acute) Candidal vulvovaginitis (Acute) IUD check up (Acute) Myoma (Acute) Hydrosalpinx (Acute) Rectocele (Acute) Screening mammogram, encounter for (Acute) Metrorrhagia (Acute) Pelvic pain (Acute) Past Medical History Medical History Asthma Anxiety GERD (gastroesophageal reflux disease) Family History Family History Unknown No family history of colorectal cancer Surgical History Surgical History History of bilateral tubal ligation History of cholecystectomy Social History Social History Alcohol intake: never Patient Tobacco Use Status: Current everyday Tobacco user Tobacco use type: Cigarette Cigarettes Per Day: 9 Use of substances other than those prescribed or required for medical reasons: Yes Are you DNR?: No Advance Directives: No Advance Directives Information Provided: Yes Sexual orientation: Straight/Heterosexual Gender identity: Female Meds Allergies Allergy/AdvReac Type Severity Reaction Status Date / Time vicodin Allergy Unknown abd pain, Uncoded 09/16/23 10:07 nausea Home Medications ?Medication ?Instructions ?Recorded ?Confirmed ?Last Taken ?Type levonorgestrel 21 mcg/24 hours (8 intrauterine 12/09/20 06/24/23 Unknown History yrs) 52 mg intrauterine device (Mirena) ibuprofen 800 mg tablet mg PO 06/24/23 06/24/23 Unknown History buspirone 5 mg tablet 5 mg PO DAILY PRN 09/16/23 Unknown History sertraline 50 mg tablet (Zoloft) 50 mg PO DAILY 09/16/23 Unknown History Exam Height,Weight and Vital Signs: Height 5 ft 4 in Weight 77.564 kg Narrative Narrative: Holter 08/2023 1. Patient was monitored for total period of 3 days 2. Baseline was normal sinus rhythm with average heart of 74 beats per minute 3. No significant arrhythmias or pauses noted 4. No patient reported events EKG 07/2023 Vent. Rate : 070 BPM Atrial Rate : 070 BPM P-R Int : 138 ms QRS Dur : 076 ms QT Int : 366 ms P-R-T Axes : 067 003 017 degrees QTc Int : 395 ms Normal sinus rhythm Normal ECG When compared with ECG of 06-SEP-2022 17:27, No significant change was found Assessment and Plan Assessment Anesthesia Assessment: Chart Reviewed Documented by User: Mirela Enriquez MD 11/04/23 10:19 PMFSH Past Medical History Medical History Asthma Anxiety GERD (gastroesophageal reflux disease) Family History Family History Unknown No family history of colorectal cancer Surgical History Surgical History History of bilateral tubal ligation History of cholecystectomy History of Problems with Anesthesia: No Social History Social History Alcohol intake: never Patient Tobacco Use Status: Current everyday Tobacco user Tobacco use type: Cigarette Cigarettes Per Day: 9 Use of substances other than those prescribed or required for medical reasons: Yes Are you DNR?: No Advance Directives: No Advance Directives Information Provided: Yes Sexual orientation: Straight/Heterosexual Gender identity: Female Meds Allergies Allergy/AdvReac Type Severity Reaction Status Date / Time vicodin Allergy Unknown abd pain, Uncoded 09/16/23 10:07 nausea Home Medications ?Medication ?Instructions ?Recorded ?Confirmed ?Last Taken ?Type levonorgestrel 21 mcg/24 hours (8 intrauterine 12/09/20 06/24/23 Unknown History yrs) 52 mg intrauterine device (Mirena) ibuprofen 800 mg tablet mg PO 06/24/23 06/24/23 Unknown History buspirone 5 mg tablet 5 mg PO DAILY PRN 09/16/23 Unknown History sertraline 50 mg tablet (Zoloft) 50 mg PO DAILY 09/16/23 Unknown History Exam Airway Mallampati Class: II TM Dist: >3cm Neck ROM: Full Loose/Missing/Broken Teeth: No Heart: RRR Lungs: CTA Assessment and Plan Assessment Anesthesia Assessment: Anesthesia Plan Discussed Final Anesthetic Review History of Problems with Anesthesia: No NPO: Yes ASA Class: II Final Preanesthetic Review: Meds/Allgs Chart Reviewed, Consent Obtained/Reviewed and Anes Risks/Benef Reviewed Patient Risk: Low Procedure Risk: Intermediate Anesthetic Plan Anesthetic Plan: MAC: Disposition: Standard PACU
[2023-11-04 09:39] VITALS: BMI 29.4
[2023-11-04 09:47] VITALS: BP 108/84; PULSE 72; RESP 16; TEMP 36.4; O2SAT 98
[2023-11-04] MEDS: Lactated Ringers 1,000 ML 80 ML IVCONT (10:00)
--- NOTE | 2023-11-04 11:03 | MHC.SHP ---
Pre-Procedural Eval Section A - 24 Hr Update-Section A only Date of Service: 11/04/23 Section B - Complete if H&P > 30 days Chief Complaint: gerd,screening Details of Present Illness: History of bilateral tubal ligation History of cholecystectomy Present Medications: see Short Stay Collaborative assessment Allergies: Allergies Allergy/AdvReac Type Severity Reaction Status Date / Time vicodin Allergy Unknown abd pain, Uncoded 09/16/23 10:07 nausea Review of Systems Review of Systems Comment: Ten point ROS negative Exam Exam Comment: Gen appear: No acute distress HEENT: no icterus Chest: No overt resp distress Abd: soft, nontender, nondistended Psych: Stable affect, answering questions appropriately Neuro: A/Ox3 noted to move all extremities spontaneously Ext: no peripheral edema Plan Diagnosis/Plan: Unchanged I have reviewed the history and physical and performed a pertinent physical examination on my patient. No changes have occurred unless specified. Time Spent With Patient Time: Total time managing care of this patient today ____ minutes.
--- NOTE | 2023-11-04 11:07 | P.OP_ITS ---
Operative Note Operative Note Date of Service: 11/04/23 Narrative: Procedure: Upper endoscopy and colonoscopy Indication: GERD, screening Endoscopist: Shalonda Cortez MD Anesthesia Provider: Stephani Robbins CRNA Anesthesia type: MAC Instrument: [id number] and [id number]-[id number] EGD Procedure:?? The procedure, indications, preparation and potential complications were reviewed with the patient, who indicated understanding and gave written informed consent to proceed. Physical exam was performed. The endoscope was introduced through the mouth, and advanced to the 3rd part of the duodenum. The mucosa was carefully examined on slow withdrawal of the endoscope. The patient tolerated the procedure well. There were no immediate complications.? EGD Findings:? * Esophagus:? Normal mucosa was noted in the esophagus. The Z-line was at 40 cm. Cold forceps biopsies were taken for histology. * Stomach:? Mild erythema and erosions were noted in the body of the stomach. Retroflexion was performed in the cardia. Cold forceps random gastric biopsies were taken to rule out H pylori. * Duodenum:? Normal duodenal mucosa. Cold forceps biopsies were taken from the duodenal bulb and 2nd portion of the duodenum to rule out celiac sprue. Colonoscopy Procedure:? The patient was then turned for the colonoscopy. A digital rectal exam was performed which was abnormal for ext hemorrhoids.? A distal attachment cap was affixed to the tip of the scope and the colonoscope was then inserted through the anus and advanced through the colon and advanced to the cecum at 75 cm and terminal ileum.? Appendiceal orifice and ileocecal valve were identified. Mucosa was carefully examined under high definition white light as the instrument was slowly withdrawn in a retrograde panoramic fashion. Retroflexion was performed in rectum. The procedure was not difficult. The quality of the prep was BBPS: 2+2+2 = adequate Withdrawal time 13 minutes Limitations: No limitations Findings: Mucosa: Normal colon and terminal ileum mucosa. Protruding lesions: * One sessile polyp size 7 mm was removed from the sigmoid colon. Cold snare polypectomy was performed. The polyp was completely removed and retrieved. * Medium internal hemorrhoids without stigmata of recent bleeding. Impression: 1. Normal esophagus 2. Gastritis 3. Normal duodenum 4. Normal colon and terminal ileum mucosa 5. Sigmoid colon polyp removed 6. Internal and external hemorrhoids Recommendations:?? * Follow-up path results * Start omeprazole 20mg once daily * Avoid NSAIDs * Repeat colonoscopy in 5-7depending on the results
[2023-11-04 11:50] VITALS: BP 108/71; PULSE 74; RESP 16; TEMP 36.4; O2SAT 98
[2023-11-04 12:11] VITALS: BP 101/69; PULSE 53; RESP 18; TEMP 36.4; O2SAT 100
== END 2023-11-04 12:35 | disposition home or self-care (01) ==
PROVIDERS: PCP Pediatrics; Visit Provider Internal Medicine
PROC: (CPT 45385; principal; 2023-11-04 11:20)
DX: Z12.11 Encounter for screening for malignant neoplasm of colon (principal); K63.5 Polyp of colon; K64.4 Residual hemorrhoidal skin tags; K64.8 Other hemorrhoids; K21.9 Gastro-esophageal reflux disease without esophagitis; K29.70 Gastritis, unspecified, without bleeding
CPT/HCPCS: 45385; 43239; 88305; 88313; 88342; J1596; J2704

== ENCOUNTER → 2023-11-04 08:53 | Outpatient (BNV) | payer MEDICARE, MEDICAID, SELFPAY | PROVIDERS: PCP Pediatrics; Visit Provider Internal Medicine | DX: Z12.11 Encounter for screening for malignant neoplasm of colon (principal); K63.5 Polyp of colon; K64.8 Other hemorrhoids; K21.9 Gastro-esophageal reflux disease without esophagitis; K29.70 Gastritis, unspecified, without bleeding | CPT/HCPCS: 43239; 45385 ==

== ENCOUNTER 2024-06-05 12:14 | Outpatient (REF) | payer MEDICARE, MEDICAID, SELFPAY ==
[2024-06-06 11:19] LABS: HPV 16,18/45 See PAP report
[2024-06-06 12:06] LABS: CT PCR NOT DETECTED (Not Detect.); NG PCR NOT DETECTED (Not Detect.)
== END 2024-06-05 12:15 | disposition home or self-care (01) ==
LOC: HO.LNP 12:14
PROVIDERS: PCP Pediatrics; Visit Provider Obstetrics & Gynecology
DX: Z01.419 Encounter for gynecological examination (general) (routine) without abnormal findings (principal); R10.2 Pelvic and perineal pain
CPT/HCPCS: 87491; 87591; 87624; 88175; 99212; G0101; Q0091

== ENCOUNTER 2024-06-05 12:14 | Outpatient (AMB) | payer MEDICARE, MEDICAID, SELFPAY ==
--- NOTE | 2024-06-05 12:21 | A.OFFVIS_ITS ---
Vital Signs 06/05/24 12:22 Height 5 ft 4 in Weight 171 lb BMI 29.3 BP 112/74 Intake Visit Reasons: IUD follow up/DO NOT RS Intake Note: Left sided cramping Flight Service Specialist: Flight Service Specialist Present (Maris) Accompanied by: Self / Same As Patient Allergies vicodin Allergy (Unknown, Uncoded 09/16/23 10:07) abd pain, nausea HPI Comments Details: Presenting complaining of left lower quadrant pain for the last 2 months with no associated urinary frequency or dysuria no vaginal discharge or abnormal bleeding. Patient had a pelvic ultrasound in 06/24 showing a left hydrosalpinx. Last co testing was in 07/24 was negative Last mammogram was BI-RADS 1 in 09/25 Last screening colonoscopy was few months ago [facility] Medical History Asthma Anxiety GERD (gastroesophageal reflux disease) Surgical History History of esophagogastroduodenoscopy (EGD) Hx of colonoscopy History of bilateral tubal ligation History of cholecystectomy Family History Unknown No family history of colorectal cancer Social History Alcohol intake: never Patient Tobacco Use Status: Current everyday Tobacco user Tobacco use type: Cigarette Cigarettes Per Day: 9 Sexual orientation: Straight/Heterosexual Gender identity: Female Female Reproductive History Menstrual control method: progestin IUCD (Mirena) Review of Systems Const All systems reviewed & are unremarkable except as noted in HPI and below Physical Exam Vital Signs: Last Vital Signs BP 112/74 06/05/24 12:22 BMI result Body Mass Index 29.3 Chest Chest palpation & inspection: normal inspection of the chest and normal palpation of entire chest wall Breast/axilla inspection: normal inspection of the breasts and normal inspection of the axillae Breast/axilla palpation: normal palpation of the breasts, normal palpation of the axillae and no axillary lymphadenopathy General: Yes no CVA tenderness External Female Exam: normal external appearance and normal appearance of the urethra Speculum Exam - Vagina: normal appearance of the vagina, normal palpation, no lesions and no masses Speculum Exam - Cervix: normal appearance of the cervix, normal palpation, no lesions, no masses and nontender Bimanual exam- vagina & uterus: normal bimanual exam, normal palpation, uterine size normal, normal palpation, uterine shape normal, No Cervical tenderness present and non-tender Bimanual Exam- Adnexa, other: normal adnexae Back/Spine/Pelvis Back: no CVA tenderness Assessment & Plan Assessment & Plan (1) Well woman exam: Code(s): Z01.419 - Encounter for gynecological examination (general) (routine) without abnormal findings Category: Medical Plan: Co testing done. Counseled the patient about the recommended dietary allowance of 1200 mg of Calcium & 600 IU of vitamin D. Mammogram ordered for . The patient was instructed to perform monthly self-breast exams and schedule annual exam in a year. All questions answered and the patient verbalized understanding. (2) Pelvic pain: Code(s): R10.2 - Pelvic and perineal pain Category: Medical Plan: Urine dip and test done in the office were both negative. GC and chlamydia taken and pelvic ultrasound ordered. Discussed with the patient the differential diagnosis of pelvic pain including but not limited to adnexal, uterine masses, pelvic infections (PID), GI the (Irritable bowel syndrome, diverticulitis, others), musculoskeletal, myofascial pain abdominal wall , adhesions, endometriosis, psychological and others causes. Will check results and treat accordingly. All questions answered, the patient verbalized understanding. Instructed the patient to schedule follow-up appointment in 2 weeks Orders: Orders MM tomosynthesis screening BI Today Z12.31 - Encounter for screening mammogram for malignant neoplasm of breast Pap Smear Today Z.419 - Encounter for gynecological examination (general) (routine) without abnormal findings HPV High risk Today Z01.419 - Encounter for gynecological examination (general) (routine) without abnormal findings US pelvic and transvaginal Today R10.2 - Pelvic and perineal pain CT NG by PCR Today Z01 - Encounter for gynecological examination (general) (routine) without abnormal findings Coding Level of Care Code Est Pt Level 3 (54619) Est Pt Prev Care 40-64y(37207) Diagnoses Well woman exam Z01. Pelvic pain R10.2
[2024-06-05 12:22] VITALS: BP 112/74; BMI 29.3
== END 2024-06-05 12:47 | disposition home or self-care (01) ==
PROVIDERS: PCP Pediatrics; Visit Provider Obstetrics & Gynecology
DX: R10.2 Pelvic and perineal pain (principal); Z01.419 Encounter for gynecological examination (general) (routine) without abnormal findings
CPT/HCPCS: 99213; G0101; Q0091

== ENCOUNTER 2024-06-14 10:23 | Outpatient (REF) | payer MEDICARE, MEDICAID, SELFPAY | END 2024-06-14 10:24 | disposition home or self-care (01) | LOC: HO.US 10:23 | PROVIDERS: PCP Pediatrics; Visit Provider Obstetrics & Gynecology | DX: R10.2 Pelvic and perineal pain (principal) | CPT/HCPCS: 76830; 76856 ==

== ENCOUNTER 2024-08-01 12:43 | Outpatient (AMB) | payer MEDICARE, MEDICAID, SELFPAY ==
--- NOTE | 2024-08-01 13:00 | A.OFFVIS_ITS ---
Intake Visit Reasons: Ultrasound follow up Contracts Specialist: Contracts Specialist Present (Maris) Accompanied by: Self / Same As Patient Allergies vicodin Allergy (Unknown, Uncoded 09/16/23 10:07) abd pain, nausea HPI Comments Details: Presenting for follow-up regarding her pelvic pain. The patient is doing well. The following workup was done so far: GC/CT negative. Last visit urine test was negative. Last visit urine dip. Pelvic ultrasound showed the following: IMPRESSION: 1. A 3.1 x 2.8 x 3.2 cm uterine mass, previously 2.8 x 2.6 x 2.9 cm, characteristic of a fibroid. 2. A 2.9 cm complex left ovarian cyst is difficult to characterize as visualization is limited due to bowel gas and was not identified on the prior exam. 3. Simple and complex nabothian cysts. 4. IUD in place within the endometrial cavity. Visualization of the endometrium is limited due to shadowing from IUD. Imaged segment of endometrium with thickness of 0.3 cm. 5. Dilated left adnexal vessels, possibly representing pelvic congestion. [facility] Medical History Asthma Anxiety GERD (gastroesophageal reflux disease) Surgical History History of esophagogastroduodenoscopy (EGD) Hx of colonoscopy History of bilateral tubal ligation History of cholecystectomy Family History Unknown No family history of colorectal cancer Social History Alcohol intake: never Patient Tobacco Use Status: Current everyday Tobacco user Tobacco use type: Cigarette Cigarettes Per Day: 9 Sexual orientation: Straight/Heterosexual Gender identity: Female Review of Systems Const All systems reviewed & are unremarkable except as noted in HPI and below Reports as per HPI and Reports no additional complaints GI Reports no additional complaints Reports no additional complaints Assessment & Plan Assessment & Plan (1) Pelvic pain: Code(s): R10.2 - Pelvic and perineal pain Category: Medical Plan: Discussed with the patient the results of the workup done including negative GC/chlamydia, urine dip, urine test and pelvic ultrasound. All questions answered, the patient verbalized understanding. (2) Complex ovarian cyst: Code(s): N83.299 - Other ovarian cyst, unspecified side Category: Medical Plan: Discussed with the patient the complex ovarian cyst by ultrasound. Discussed with the patient the Ultrasound findings, the main limitation of transvaginal ultrasonography alone as a diagnostic tool to distinguish benign from malignant masses relates to its lack of specificity and low positive predictive value for cancer. The differential diagnosis discussed with the patient includes the following but not limited to: benign and malignant gynecological and non-gynecological causes. Discussed with the patient options of treatment , in case CA 125 is not e levated, including laparoscopy ovarian cystectomy/oophorectomy vs. expectant management with repeat US in repeating pelvic US in 6-12 weeks from previous US. I since ultrasound was done on 06/14/2024, recommended repeat ultrasound within the coming 1-2 weeks and manage accordingly. Instructions given the patient to schedule a 2 week follow-up ultrasound appointment. All questions were answered & the patient verbalized understanding and agreed with the plan. (3) Uterine myoma: Code(s): D25.9 - Leiomyoma of uterus, unspecified Category: Medical Plan: Discussed with the patient the findings on pelvic ultrasound & the risk of myosarcoma; discussed with the patient the options of treatment including expectant management versus hysterectomy; the pros and cons, risks benefits of each approach were discussed with the patient including the fact that in cases of myosarcoma, surgical treatment can lead to early diagnosis and positively affects the prognosis; after further discussion, the patient decided to proceed with expectant management. Will repeat pelvic ultrasound periodically. Instructions given to patient to call in case any of the following occurs: pressure symptoms, abnormal uterine bleeding, pelvic pain; and to schedule a p elvic ultrasound (order placed) and a follow-up appointment . All questions answered, the patient verbalized understanding and agreed with the plan . Orders: Orders US pelvic and transvaginal Today D25.9 - Leiomyoma of uterus, unspecified, N83.299 - Other ovarian cyst, unspecified side Coding Level of Care Code Est Pt Level 3 (60431) Diagnoses Pelvic pain R10.2 Complex ovarian cyst N83.299 Uterine myoma D25.9
--- OUTSIDE RECORDS SUMMARY | 2024-08-01 13:33 | XMS_ITS | Clinical Summary ---
Author Organization [employer] Address [address] [facility] 7[address] [place] [address] Care Team Providers Care Piano Sounding Board Matcher Name Role Phone Sarah Patiño MD Primary Care Provider [phone] Allergies Active Allergy Reactions Criticality Noted Date Comments Hydrocodone-Acetaminophen 01/26/2023 Medications SM Vitamin D3 50 MCG capsule Take 50 mcg by mouth 2 times daily. 2 Active nicotine (Nicoderm CQ) 14 MG/24HR patch Place 1 patch on the skin 1 (one) time each day at the same time. 42 patch 3 Active acetaminophen (Tylenol) 500 MG tablet Take 2 tablets (1,000 mg) by mouth every 6 (six) hours if needed for moderate pain or fever for up to 25 doses. 50 tablet 3 Active Additional Information Patient not taking.Reported on 12/03/2023 ibuprofen 800 MG tablet Take 800 mg by mouth every 6 (six) hours if needed. 3 Active albuterol 108 (90 Base) MCG/ACT inhaler Inhale 2 puffs every 4 (four) hours if needed. 0 Active nicotine polacrilex (Nicorette) 2 MG gum Chew 1 each (2 mg) if needed for smoking cessation. 100 each 4 Active sertraline (Zoloft) 50 MG tablet Take 1 tablet (50 mg) by mouth in the morning. 30 tablet 5 4 Active Additional Information Patient not taking.Reported on 12/03/2023 busPIRone (Buspar) 5 MG tablet Take 1 tab orally bid prn anxiety 30 tablet 5 4 Active tiZANidine (Zanaflex) 2 MG tablet Take 1 tablet (2 mg) by mouth every 8 (eight) hours if needed for muscle spasms for up to 10 days. 30 tablet 1 4 Active omeprazole (PriLOSEC) [address] capsule Take 20 mg by mouth Once per day. 4 Active pantoprazole (ProtoNix) 20 MG EC tablet Take 20 mg by mouth in the morning. 4 Active Active Problems Problem Noted Date Diagnosed Date Moderate anxiety 09/09/2017 Allergic rhinitis 04/01/2011 Vitamin D deficiency 01/22/2011 Encounters Date Type Department Care Team Description 07/25/2024 Telephone [facility] [address] [place] [address] Aaron Rivera DMD 06/05/2024 Orders Only GENERIC EXTERNAL DATA DEPARTMENT Provider, Generic External Data 05/04/2024 Telephone [facility] [address] [place] [address] Sarah Patiño MD No Show 05/03/2024 Telephone [facility] [address] [place] [address] Sarah Patiño MD Chart Prep from Last 3 Months Immunizations Name Administration Dates Next Due Hep B, adult 05/02/2020 Influenza injectable quadriv alent IIV4 with preservative 07/09/2017 Influenza injectable quadriv alent preservative free 04/06/2023,04/03/2020,06/18/2016,2015 Influenza, Split (incl. castro fied surface antigen) 04/07/2013,05/30/2012 MMR 11/08/2018,09/28/2018 Tdap 07/26/2015 Varicella 11/08/2018,09/28/2018 Social History Tobacco Use Types Packs/Day Years Used Date Smoking Tobacco: Every Day Cigarettes Passive Smoke Exposure: Never Smokeless Tobacco: Never Tobacco Cessation:Ready to Q uit: Not Asked; Counseling Given: Yes Alcohol Use Standard Drinks/Week Comments Not Currently 0 (1 standard drink = 0.6 oz pur e alcohol) Depression Answer Date Recorded Patient Health Questionnaire-9 Score 0 04/06/2023 Housing Stability Answer Date Recorded What is your housing situation today? I have chaitanya sing 04/20/[address] you li ve. Do you have problems with any of the following? None of the above 04/20/2023 Food Insecurity Answer Date Recorded Within the past 12 months, y ou worried that your food would run out before you got money to buy more: Never True 04/20/2023 Within the past 12 months,th e food you bought just didn't last and you didn't have enough money to get more: Never True Transportation Answer Date Recorded In the past 12 months, has l ack of transportation kept you from medical appts, meetings, work or from getting things needed for daily living? No 04/20/2023 Utilities Answer Date Recorded In the past 12 months, has t he electric, gas, oil or water company threatened to shut off services in your home? No 04/20/2023 Depression Answer Date Recorded Patient Health Questionnaire-2 Score 0 04/06/2023 Comments Unknown Sex and Gender Information Value Date Recorded Sex Assigned at Female 05/04/2022 10:14 AM EDT Legal Sex Female 10:14 AM EDT Gender Identity Female 05/04/2022 10:14 AM EDT Sexual Orientation Choose not to disclose 2021 10:14 AM EDT Last Filed Vital Signs Vital Sign Reading Time Taken Comments Blood Pressure 128/78 12/30/2023 9:35 AM EDT Pulse 63 12/30/2023 9:35 AM EDT Temperature 36.2 ??C (97.2 ??F) 12/30/2023 9:35 AM ED T Respiratory Rate 14 12/30/2023 9:35 AM EDT Oxygen Saturation 98% 12/30/2023 9:35 AM EDT Inhaled Oxygen Concentration - - Weight 76.2 kg (168 lb) 12/30/2023 9:35 AM EDT Height 160 cm (5' 3 ) 12/30/2023 9:35 AM EDT Body Mass Index 29.76 12/30/2023 9:35 AM EDT Plan of Treatment Upcoming Encounters Date Type Department Care Team (Late st Contact Info) Description 09/05/2024 9:15 AM EST Office Visit [facility] [address] [place], [place] [phone] Sarah Patiño MD [address] [place] [phone] Health Maintenance Due Date Last Done Comments CT Colonography 1977 Dental Prophylaxis 1977 FIT DNA/Cologuard 1975 FIT 1975 FOBT 1975 Sigmoidoscopy 1975 Pneumococcal Vaccine: Pediatrics (0 to 5 Years) and At-Risk Patients (6 to 64 Years) (1 of 2 - PCV) 1983 Alcohol/Substance Use Screening 1989 Family Planning (PISQ) 1992 Hepatitis B Vaccines (2 of 3 - 19+ 3-dose series) 05/30/2020 05/02/2020 COVID-19 Vaccine (4 - season) 2024 03/08/2022, 08/30/2020, 08/02/2020 Influenza Vaccine (#1) 2024 , 04/03/2020, 07/09/2017, Additional history exists Depression Screening 04/06/2024 04/06/2023, 04/06/20 23 SDOH Screening 04/06/2024 04/06/2023 Dental Oral Exam 08/14/2024 02/11/2024 Dental X-Ray: Bitewings 02/11/2025 02/11/2024, 12/02 Tobacco Screening 03/15/2025 03/15/2024 DTaP/Tdap/Td Vaccines (2 - Td or Tdap) 07/26/2025 07/26/2015 Mammogram 10/05/2025 10/06/2023, 09/02, 09/11/2022, Additional history exists Dental X-Ray: Full Mouth 02/11/2027 02/11/2024, 12/02/2023 Lipid Panel 03/30/2027 03/30/2022 Zoster Vaccines (1 of 2) 2027 Colonoscopy 11/03/2028 11/04/2023 Colorectal Cancer Screening 11/03/2028 Cervical Cancer Screening 06/05/2029 HPV/Cotest 06/05/2029 07/10/2019, 03/30/2017 Pap Smear 06/05/2029 06/05/2024 RSV Patients and Patients Aged 60 years or older (1 - 1-dose 75+ series) 2052 HIV Screening Completed 06/13/2021, 07/10/2019 Hepatitis C Screening Completed 06/13/2021, 020 HIB Vaccines Aged Out No longer eligi ble based on patient's age to complete this topic HPV Vaccines Aged Out No longer eligi ble based on patient's age to complete this topic Hepatitis A Vaccines Aged Out No long er eligible based on patient's age to complete this topic IPV Vaccines Aged Out No longer eligi ble based on patient's age to complete this topic Meningococcal Vaccine Aged Out No bethanie windy eligible based on patient's age to complete this topic RSV under 20 months Aged Out No longe r eligible based on patient's age to complete this topic Rotavirus Vaccines Aged Out No longer eligible based on patient's age to complete this topic Procedures Procedure Name Priority Date/Time Associated Diagnosis Comments US PELVIS TRANSVAGINAL Routine 11:11 AM EST PAP SMEAR Routine 06/05/2024 12:42 PM EST CHLAMYDIA/N. GONORRHOEAE RNA, TMA, UROGENITAL Routine 06/05/2024 12:14 PM EST DIAGNOSTIC - DIAGNOSTIC IMAGING - INTRAORAL - COMPREHENSIVE SERIES OF RADIOGRAPHIC IMAGES Routine 02/11/2024 9:00 AM EDT PERIODIC ORAL EVALUATION - ESTABLISHED PATIENT Routine 02/11/2024 9:00 AM EDT COLONOSCOPY Routine 11/04/2023 MAMMOGRAPHY Routine 10/06/2023 LIPID PANEL, STANDARD Routine 03/30/2022 11:48 AM EDT ZZZ HISTORICAL HEPATITIS C ANTIBODY Routine 06/13/2021 9:03 AM EST ZZZ HISTORICAL HPV MRNA E6/E7 Routine 07/10/2019 10:16 AM EST from Last 3 Months or Most Recently Relevant to Health Maintenance Results * US Pelvis Transvaginal (06/14/2024 11:11 AM EST) Anatomical Region Laterality Modality Pelvis Ultrasound 06/14/2024 11:1 1 AM EST Narrative 07/23/2024 12:01 PM EST ? [facility] ?[address] ?[place] [address] ? Ultrasound Report ? Signed ? Patient: John,Rosa Elena ?MR#: [id number] ?? [id number] ? : 1975 ?Acct:[id number] ? Age/Sex: 48 / F ?ADM Date: 06/14/24 ? Loc: HO.US ? Attending Dr: Alek Archibald MD ? Ordering Physician: Alek Archibald MD ?? Date of Service: 06/14/24 ?? Procedure(s): US pelvic and transvaginal ?? Accession Number(s): [id number] ? cc: Sarah Patiño MD; Alek Archibald MD ? EXAMINATION: ? US PELVIS ? CLINICAL INFORMATION: ? Pelvic and perineal pain, IUD, left lower quadrant pain. ? COMPARISON: ?? 06/13/2021 pelvic ultrasound. ? TECHNIQUE: ?? Ultrasound of the pelvis is performed using both transabdominal and ?? transvaginal transducers along with Doppler. Transvaginal imaging is ?? performed due to inadequate visualization transabdominally. ? Limited visualization due to bowel gas. ? FINDINGS: ?? The anteverted uterus measures 8.8 x 4.2 x 5.2 cm. ? 3.1 x 2.8 x 3.2 cm uterine mass, previously 2.8 x 2.6 x 2.9 cm, ?? characteristic of a fibroid. ? Right ovary measures 2.6 x 1.4 x 1.6 cm. Left ovary measures 4.9 x 2.7 ?? x 4.0 cm. ? 2.9 x 2.6 x 2.7 cm complex left ovarian cyst is difficult to ?? characterize as visualization is limited due to bowel gas and was not ?? identified on the prior exam. ? Simple and complex nabothian cysts. ? IUD in place within the endometrial cavity. Visualization of the ?? endometrium is limited due to shadowing from IUD. ? Dilated left adnexal vessels, possibly representing pelvic congestion. ? US/US pelvic and transvaginal ?? IMPRESSION: ?? 1. A 3.1 x 2.8 x 3.2 cm uterine mass, previously 2.8 x 2.6 x 2.9 cm, ?? characteristic of a fibroid. ? 2. A 2.9 cm complex left ovarian cyst is difficult to characterize as ?? visualization is limited due to bowel gas and was not identified on the ?? prior exam. ? 3. Simple and complex nabothian cysts. ? 4. IUD in place within the endometrial cavity. Visualization of the ?? endometrium is limited due to shadowing from IUD. Imaged segment of ?? endometrium with thickness of 0.3 cm. ? 5. Dilated left adnexal vessels, possibly representing pelvic ?? congestion. ? Electronically signed by: ??Bonnie Chen MD ??07/23/2024 11:58 AM EST ? Dictated By: ?Bonnie Chen MD ? Signed By: ?<Electronically signed by Bonnie Chen MD in OV> ? 07/23/24 1158 ? DD/ 1111 ? TD/TT: 06/14/24 1131 ? Engine Setter: ? Procedure Note Chan, Image - 07/23/2024 [place] [id number] Ultrasound Report Signed Patient: Radha Lopez MMR#: [id number] : 1975Acct:[id number] Age/Sex: 48 / FADM Date: 06/14/24 Loc: HO.US Attending Dr: Alek Archibald MD Ordering Physician: Alek Archibald MD Date of Service: 06/14/24 Procedure(s): US pelvic and transvaginal Accession Number(s): [id number] cc: Sarah Patiño MD; Alek Archibald MD EXAMINATION: US PELVIS CLINICAL INFORMATION: Pelvic and perineal pain, IUD, left lower quadrant pain. COMPARISON: 06/13/2021 pelvic ultrasound. TECHNIQUE: Ultrasound of the pelvis is performed using both transabdominal and transvaginal transducers along with Doppler. Transvaginal imaging is performed due to inadequate visualization transabdominally. Limited visualization due to bowel gas. FINDINGS: The anteverted uterus measures 8.8 x 4.2 x 5.2 cm. 3.1 x 2.8 x 3.2 cm uterine mass, previously 2.8 x 2.6 x 2.9 cm, characteristic of a fibroid. Right ovary measures 2.6 x 1.4 x 1.6 cm. Left ovary measures 4.9 x 2.7 x 4.0 cm. 2.9 x 2.6 x 2.7 cm complex left ovarian cyst is difficult to characterize as visualization is limited due to bowel gas and was not identified on the prior exam. Simple and complex nabothian cysts. IUD in place within the endometrial cavity. Visualization of the endometrium is limited due to shadowing from IUD. Dilated left adnexal vessels, possibly representing pelvic congestion. US/US pelvic and transvaginal IMPRESSION: 1. A 3.1 x 2.8 x 3.2 cm uterine mass, previously 2.8 x 2.6 x 2.9 cm, characteristic of a fibroid. 2. A 2.9 cm complex left ovarian cyst is difficult to characterize as visualization is limited due to bowel gas and was not identified on the prior exam. 3. Simple and complex nabothian cysts. 4. IUD in place within the endometrial cavity. Visualization of the endometrium is limited due to shadowing from IUD. Imaged segment of endometrium with thickness of 0.3 cm. 5. Dilated left adnexal vessels, possibly representing pelvic congestion. Electronically signed by: Bonnie Chen MD 07/23/2024 11:58 AM EST Dictated By: Bonnie Chen MD Signed By: <Electronically signed by Bonnie Chen MD in OV> 07/23/24 1158 DD/ 1111 TD/TT: 06/14/24 1131 Engine Setter: [facility] External Provider IMG US PROCEDURES Edited Result - Final * Pap Smear (06/05/2024 12:42 PM EST) 06/05/2024 12:4 2 PM EST 06/06/2024 11:00 AM EST Narrative [facility] - 06/08/2024 12:42 PM EST ----- ------- Name: Radha Lopez ?Age/Sex: 48/F ? : 1975 Unit#: [id number] ?? Attend Dr: Alek Archibald MD ?Re06/05/24 ?Status: DEP REF ? Location: HO.LNP ?Disch: ? ----- ------- SPEC : [id number] ?RECD: 06/06/24-1099 ? STATUS: ??SOUT ? REQ NUM: [id number] ? JENNIFER: 06/05/24-1242 ? SUBM DR: Alek Archibald MD ? ENTERED: ??06/06/24-1108 ?SP TYPE: Pap Smr ?OTHR DR: Sarah Patiño MD ? ORDERED: ??Pap Smear ? Interpretation ?? Satisfactory for evaluation. ?? Negative for intraepithelial lesion or malignancy. ?? No endocervical cells seen. ?? Mild inflammation. ? HPV High Risk: ??Negative ? HPV Genotyping 16: ??Negative ?? HPV Genotyping 18: ??Negative ?Clinical Information LMP: Mirena Previous PAP test: Unknown date/findings ? Material Received ?? ThinPrep-Cervical Copies To: ?? Sarah Patiño MD ?? [facility] ?? [address] ?? [place] [address] ?? [phone] ?? Alek Archibald MD ?? [facility] ?? [address] ?? [place] [address] ?? [phone] ----- ------- Signed (signature on file) CAR[facility] ([facility]) 06/08/24 1242 ? ----- ------- ? END OF REPORT ? us Generic External Data Provider LAB CYTOLOGY MARIA G ALEX Final Result [facility] [address] [place] [address] [phone] * Chlamydia/N. Gonorrhoeae RNA, TMA, Urogenitial (06/05/2024 12:14 PM EST) CT PCR NOT DETECTED Not Detect. [facility] Comment:A not detected test result does not exclude the possibilityof infection because test results can be affected byimproper specimen collection, concurrent antibiotic therapy,or the number of organisms in the specimen which may bebelow the sensitivity of the test. As with many diagnostictests, results from the Xpert CT/NG assay should beinterpreted in conjunction with other laboratory andclinical data available to the clinician.Xpert CT/NG performance has not been evaluated in patientsless than 14 years of age. The assay should not be used forthe evaluationof suspected sexual abuse or for other medico-legalindications. Additional testing is recommended in anycircumstance when false positive or false negative resultscould lead to adverse medical, social or psychologicalconsequences. NG PCR NOT DETECTED Not Detect. [facility] Comment:A not detected test result does not exclude the possibilityof infection because test results can be affected byimproper specimen collection, concurrent antibiotic therapy,or the number of organisms in the specimen which may bebelow the sensitivity of the test. As with many diagnostictests, results from the Xpert CT/NG assay should beinterpreted in conjunction with other laboratory andclinical data available to the clinician.Xpert CT/NG performance has not been evaluated in patientsless than 14 years of age. The assay should not be used forthe evaluationof suspected sexual abuse or for other medico-legalindications. Additional testing is recommended in anycircumstance when false positive or false negative resultscould lead to adverse medical, social or psychologicalconsequences. 06/05/2024 12:1 4 PM EST 06/06/2024 9:26 AM EST Narrative [facility] - 06/06/2024 12:06 PM EST Vaginal us Generic External Data Provider LAB MICROBIOLOGY - GENERAL ORDERABLES Final Result [facility] [address] [place] [address] [phone] * (ABNORMAL) Colonoscopy (11/04/2023) Colonoscopy Abnormal( A) Normal Comment:repeat in 5-7 years 1 sigmoid polyp Sarah Patiño MD HEALTH MAINTENANCE Final Resu lt * Mammography (10/06/2023) Mammogram Normal Normal, Abnormal, BIRADS 1 , BIRADS 2 Anatomical Region Laterality Modality Other Sarah Patiño MD HEALTH MAINTENANCE Final Resu lt * (ABNORMAL) LIPID PANEL, STANDARD (03/30/2022 11:48 AM EDT) Chol/HDLC Ratio 5.2(H) <5.0 (calc) [facility] Cholesterol, Total 197 <200 mg/dL [facility] HDL Cholesterol 38(L) > OR = 50 mg/dL [facility] LDL Cholesterol 135(H) mg/dL (calc) [facility] Comment: Reference range: <100 ?? Desirable range <100 mg/dL for primary prevention; ?? <70 mg/dL for patients with CHD or diabetic patients ?? with > or = 2 CHD risk factors. ?? LDL-C is now calculated using the Zev ?? calculation, which is a validated novel method providing ?? better accuracy than the Friedewald equation in the ?? estimation of LDL-C. ?? Jamel LOREDO et al. COURTNEY. 2013;310(19): 4714-0435 ?? (http://education.[employer]/faq/OOU787) Non-HDL Cholesterol 159(H) <130 mg/dL (calc) [facility] Comment: For patients with diabetes plus 1 major ASCVD risk ?? factor, treating to a non-HDL-C goal of <100 mg/dL ?? (LDL-C of <70 mg/dL) is considered a therapeutic ?? option. Triglycerides 128 <150 mg/dL [facility] 03/30/2022 11:4 8 AM EDT Cynthia Manzano MD LAB BLOOD ORDERABLES Final Resul t Performing Organization Address [facility] Phone Number [facility] [address] * Hepatitis C Antibody (06/13/2021 9:03 AM EST) Pathologist [facility] Hepatitis C Antibody Nonreactive Nonreactive [facility] Comment: Antibodies to HCV not detected; does not exclude early acute HCV infection. HIV AB/AG Nonreactive Nonreactive [facility] Comment: HIV-1 p24 Ag and/or HIV-1/HIV-2 Ab not detected. ?? A test result that is nonreactive does not exclude the possibility of exposure to or infection with HIV-1 and/or HIV-2. Nonreactive results in this assay for individuals with prior exposure to HIV-1 and/or HIV-2 may be due to antigen and antibody levels that are below the limit of detection of this assay. ?? The Brasher Shift Coordinator HIV Ag/Ab Combo assay result and supplemental assay results should be interpreted in conjunction with the patient's clinical presentation, history and other laboratory results. ??If the results are inconsistent with clinical evidence, additional testing is suggested to confirm the result. Hepatitis B Surface Antigen Negative Negative [facility] 06/13/2021 9:03 AM EST Alek Archibald MD HISTORICAL/NON ORDERABLE LABS Fi nal Result Performing Organization Address [facility] Co de Phone Number [facility] [address] * HPV mRNA E6/E7 (07/10/2019 10:16 AM EST) Pathologist [facility] HPV mRNA E6/E7 Not Detected NOT DETECTED [facility] Comment: This test was performed using the APTIMA(R) HPV Assay ([employer] This assay detects E6/E7 viral messenger RNA (mRNA) from 14 high-risk HPV types (16,18,31,33,35,39,45,51, 52,56,58,59,66,68). For additional information please refer to: http://education.[employer]/faq/FVD950z6 (This link is being provided for informational/ educational purposes only.) The analytical performance characteristics of this assay have been determined by [employer] [place], [place]. The modifications have not been cleared or approved by the FDA. This assay has been validated pursuant to the CLIA regulations and is used for clinical purposes. Test Performed by [facility], [employer] [place], [address] [place] [address] Henrry Loza M.D., Ph.D., Director of Laboratories , CLIA [id number] Please note: ??Effective 03/16/2016, HPV testing will be performed using [employer]'s APTIMA test which targets mRNA. Detecting mRNA instead of DNA, as in older methods, offers significant improvements in specificity. 07/10/2019 10:1 6 AM EST us Historical Provider HISTORICAL/NON ORDERABLE LABS Final Result [facility] [address] from Last 3 Months or Most Recently Relevant to Health Maintenance Insurance [facility] STANDARD MEDICARE Care Teams Piano Sounding Board Matcher Relationship Specialty Start Date End Date Sarah Patiño MD [address] [place] [phone] PCP - General Family Medicine 07/05/18
--- OUTSIDE RECORDS SUMMARY | 2024-08-01 13:33 | XMS_ITS | Encounter Summary ---
Author Organization [employer] Address [address] [place] [address] Care Team Providers Care Bond Runner Name Role Phone Sarah Patiño MD Primary Care Provider [phone] Encounter Details Date Type Department Care Team ([facility] st Contact Info) Description 07/25/2024 Telephone [facility] [address] [place] [address] Aaron Rivera, DMD [address] [place] [address] Social History Tobacco Use Types Packs/Day Years Used Date Smoking Tobacco: Every Day Cigarettes Passive Smoke Exposure: Never Smokeless Tobacco: Never Alcohol Use Standard Drinks/Week Comments Not Currently 0 (1 standard drink = 0.6 oz pur e alcohol) Depression Answer Date Recorded Patient Health Questionnaire-9 Score 0 04/06/2023 Housing Stability Answer Date Recorded What is your housing situation today? I have chaitanya alberts 04/20/[address] you li [...] not to disclose 2021 10:14 AM EDT documented as of this encounter Miscellaneous Notes * Telephone Encounter - Kelly Jerry - 07/25/2024 9:36 AM EST Spoke with patient and asked if she would like to continue treatment with us and she stated not at this time, I told her I would make note of this so she doesn't receive any calls. Pt agreed. documented in this encounter Plan of Treatment Upcoming Encounters Date Type Department Care Team (Late st Contact Info) Description 09/05/2024 9:15 AM EST Office Visit [facility] [address] [place] [address] Sarah Patiño MD [address] [place] [address] documented as of this encounter Visit Diagnoses Not on filedocumented in this encounter Additional Health Concerns Assessment Noted Time PHQ-9 Depression Total Score: 0 04/06/20 23 9:38 AM EDT documented as of this encounter Care Teams Bond Runner Relationship Specialty Start Date End Date Sarah Patiño MD [address] [place] [address] PCP - General Family Medicine 07/05/18 documented as of this encounter
--- OUTSIDE RECORDS SUMMARY | 2024-08-01 13:34 | XMS_ITS | Encounter Summary ---
Author Organization [employer] Address [address] [facility] [address] [place] [address] Care Team Providers Care Chemist Water Purification Name Role Phone Sarah Patiño MD Primary Care Provider [phone] Reason for Visit * Reason Onset Date Comments Nurse Triage 06/24/2023 Encounter Details Date Type Department Care Team ([facility] st Contact Info) Description 06/24/2023 Telephone [facility] MEDICINE [address] [place] [address] Sarah Patiño MD [address] [place] [id number] Nurse Triage Social History Tobacco Use Types Packs/Day Years Used Date Smoking Tobacco: Every Day Cigarettes Passive Smoke Exposure: Never Smokeless Tobacco: Never Depression Answer Date Recorded Patient Health Questionnaire-9 [...] encounter Miscellaneous Notes * Telephone Encounter - Neyda Franco RN - 06/24/2023 10:53 AM EST Called pt. She states that she tested positive for Covid on 06/22/23. Pt. Had headache, body aches,sore throat. Symptoms are subsiding but she has a HX. Of Asthma. Pt. States has not been having a harsh cough, wheezing, or Asthma sx. Pt. Is taking Ibuprofen for body aches and Mucinex for cough andcold sx. Drinking lots of fluids. Pt. Requesting a refill on inhaler with the weekend coming up andis also requesting that a RX for saline nasal spray be sent to pharmacy also. Covid home care recs gone over with pt. Protocol Used: COVID-19 - Diagnosed or Suspected (Adult) Protocol-Based Disposition: Home Care Positive Triage Questions: * COVID-19 diagnosed by positive lab test (e.g., PCR, rapid self-test kit) and mild symptoms (e.g.,cough, fever, others) and no complications or SOB * COVID-19 Home Isolation, questions about * COVID-19 Testing, questions about * All higher-acuity triage questions were negative Care Advice Discussed: * Reassurance and Education - Positive COVID-19 Lab Test and Mild Symptoms * General Care Advice for COVID-19 Symptoms * Cough Medicines * Humidifier * Coughing Spells * Pain and Fever Medicines * COVID-19 - How to Protect Others - When You Are Sick With COVID-19 * COVID-19 - Face Masks for Prevention * Clean High Touch Surfaces Every Day * Stay Away From Others in Your Home * Call Ahead Before Visiting Your Doctor (or STOCKROOM INVENTORY CLERK/PA) * FAQ - When Can I Stop Home Isolation If I Am Sick With COVID-19? Protocol Used: COVID-19 - Diagnosed or Suspected (Adult) Protocol-Based Disposition: Home Care Positive Triage Questions: * COVID-19 diagnosed by positive lab test (e.g., PCR, rapid self-test kit) and mild symptoms (e.g.,cough, fever, others) and no complications or SOB * COVID-19 Home Isolation, questions about * COVID-19 Testing, questions about * All higher-acuity triage questions were negative Care Advice Discussed: * Reassurance and Education - Positive COVID-19 Lab Test and Mild Symptoms * General Care Advice for COVID-19 Symptoms * Cough Medicines * Humidifier * Coughing Spells * Pain and Fever Medicines * COVID-19 - How to Protect Others - When You Are Sick With COVID-19 * COVID-19 - Face Masks for Prevention * Clean High Touch Surfaces Every Day * Stay Away From Others in Your Home * Call Ahead Before Visiting Your Doctor (or STOCKROOM INVENTORY CLERK/PA) * FAQ - When Can I Stop Home Isolation If I Am Sick With COVID-19? * Telephone Encounter - Marek Dempsey - 06/24/2023 9:32 AM EST Symptoms: Body Aches, Colds, COVID-19 Positive Outcome: Schedule a same-day appointment or talk to a nurse or provider today Reason: Caller denied all higher acuity questions The caller accepted this outcome documented in this encounter Plan of Treatment Upcoming Encounters Date Type Department Care Team (Late st Contact Info) Description 09/05/2024 9:15 AM EST Office Visit [facility] CHC MED & PEDS [address] [place] [address] Sarah Patiño MD [address] [place] [address] documented as of this encounter Visit Diagnoses Not on filedocumented in this encounter Additional Health Concerns Assessment Noted Time PHQ-9 Depression Total Score: 0 04/06/20 9:38 AM EDT documented as of this encounter Care Teams Chemist Water Purification Relationship Specialty Start Date End Date Sarah Patiño MD [address] [place] [id number] PCP - General Family Medicine 07/05/18 documented as of this encounter
--- OUTSIDE RECORDS SUMMARY | 2024-08-01 13:34 | XMS_ITS | Encounter Summary ---
Author Organization [employer] Address [address] [facility] [address] [place] [address] Care Team Providers Care Food Bagging Machine Operator Name Role Phone Sarah Patiño MD Primary Care Provider [phone] Reason for Visit * Reason Comments Med Refill Encounter Details Date Type Department Care Team ([facility] Contact Info) Description 03/19/2023 Refill [facility] [address] [place] [address] Felice Carrillo MD [address] [place] [address] Social History Tobacco Use Types Packs/Day Years Used Date Smoking Tobacco: Every Day Cigarettes Passive Smoke Exposure: Never Smokeless Tobacco: Never Comments Unknown Sex and Gender Information Value Date Recorded Sex Assigned at Female 05/04/2022 10:14 AM EDT Legal Sex Female 10:14 AM EDT Gender Identity Female 05/04/2022 10:14 AM EDT Sexual Orientation Choose not to disclose 2021 10:14 AM EDT documented as of this encounter Plan of Treatment Upcoming Encounters Date Type Department Care Team (Late Contact Info) Description 09/05/2024 9:15 AM EST Office Visit [facility] MED & PEDS [address] [place], [place] [phone] Sarah Patiño MD [address] [place], [place] [phone] documented as of this encounter Visit Diagnoses Not on filedocumented in this encounter Care Teams Food Bagging Machine Operator Relationship Specialty Start Date End Date Sarah Patiño MD [address] [place] [id number] PCP - General Family Medicine 07/05/18 documented as of this encounter
--- OUTSIDE RECORDS SUMMARY | 2024-08-01 13:34 | XMS_ITS | Encounter Summary ---
Author Organization [employer] Address [address] [facility] 7t [place] [address] Care Team Providers Care Market Risk Manager Name Role Phone Sarah Patiño MD Primary Care Provider [phone] Reason for Visit * Reason Onset Date Comments ER Follow-up 08/02/2023 Encounter Details Date Type Department Care Team ([facility] st Contact Info) Description 08/02/2023 Telephone [facility] MEDICINE [address] [place] [address] Sarah Patiño MD [address] [place] [id number] ER Follow-up Social History Tobacco Use Types Packs/Day Years Used Date Smoking Tobacco: Every Day Cigarettes Passive Smoke Exposure: Never Smokeless Tobacco: Never Depression Answer Date Recorded Patient Health Questionnaire-9 Score 0 04/06/2023 Housing Stability Answer Date Recorded What is your housing situation today? I have chaitanyamary alberts 04/20/[address] you [...] encounter Miscellaneous Notes * Telephone Encounter - Jyotsna Cabrera RN - 08/02/2023 5:27 PM EST TC placed to patient to follow up on ED visit reported below. Patient reports that she has had episodes of intermittent sharp lower back pain that then radiates to the center of her chest. She first had symptoms like this in September,, and she has visited urgent care and the ED a few times for these episodes. During this most recent visit, she was advised to seek a referral for cardiology from her PCP. Scheduled for a f/u visit with PCP on 08/11/23. Advised to seek care sooner in WIC, urgent care, or ED if symptoms recur, worsen, or new symptoms develop. Routing this note to PCP for review ofrequest for referral Patient calling to report ED visit on : Date: 07/30/23 Hospital: [facility] Seen for: lower back pain radiating to chest, nausea, heat flashes Patient advised will forward to team nurse for follow up. Please contact at [phone] * Telephone Encounter - Michele Porter - 08/02/2023 8:46 AM EST Patient calling to report ED visit on : Date: 07/30/23 Hospital: [facility] Seen for: lower back pain radiating to chest, nausea, heat flashes Patient advised will forward to team nurse for follow up. Please contact at [phone] documented in this encounter Plan of Treatment Upcoming Encounters Date Type Department Care Team (Late st Contact Info) Description 09/05/2024 9:15 AM EST Office Visit [facility] CHC MED & PEDS [address] [place] [address] Sarah Patiño MD [address] [place] [address] documented as of this encounter Visit Diagnoses Not on filedocumented in this encounter Additional Health Concerns Assessment Noted Time PHQ-9 Depression Total Score: 0 04/06/20 23 9:38 AM EDT documented as of this encounter Care Teams Market Risk Manager Relationship Specialty Start Date End Date Sarah Patiño MD [address] [place] [address] PCP - General Family Medicine 07/05/18 documented as of this encounter
--- OUTSIDE RECORDS SUMMARY | 2024-08-01 13:34 | XMS_ITS | Encounter Summary ---
Author Organization [employer] Address [address] [facility] 7t [place] [address] Care Team Providers Care Entry Examiner Name Role Phone Sarah Patiño MD Primary Care Provider [phone] Reason for Visit * Reason Onset Date Comments Appointment Request 03/09/2023 Encounter Details Date Type Department Care Team ([facility] st Contact Info) Description 03/09/2023 Telephone [facility] MEDICINE [address] [place] [address] Sarah Patiño MD [address] [place] [phone] Appointment Request Social History Tobacco Use Types Packs/Day Years [...] encounter Miscellaneous Notes * Telephone Encounter - Michele Porter - 03/09/2023 9:52 AM EDT Tc from pt requesting to schedule an appt , states they were advised to have an appt within 3 Mo per last office visit with PCP, Brake Operator does not see any recalls or notes. Please contact at [phone] documented in this encounter Plan of Treatment Upcoming Encounters Date Type Department Care Team (Late st Contact Info) Description 09/05/2024 9:15 AM EST Office Visit [facility] CHC MED & PEDS [address] [place] [address] Sarah Patiño MD [address] [place] [address] documented as of this encounter Visit Diagnoses Not on filedocumented in this encounter Care Teams Entry Examiner Relationship Specialty Start Date End Date Sarah Patiño MD [address] [place] [address] PCP - General Family Medicine 07/05/18 documented as of this encounter
--- OUTSIDE RECORDS SUMMARY | 2024-08-01 13:34 | XMS_ITS | Encounter Summary ---
Author Organization [employer] Address [address] [facility] 7t [place] [address] Care Team Providers Care Glassware Finisher Name Role Phone Sarah Patiño MD Primary Care Provider [phone] Reason for Visit * Reason Comments Dental Exam Comp. Pt has ulcers and cannot take ibuprofen at this time Encounter Details Date Type Department Care Team ([facility] st Contact Info) Description 02/11/2024 9:00 AM EDT Office Visit [facility] ADULT DENTAL [address] [place] [address] Aaron Rivera, DMD [address] [place] [address] Social History Tobacco Use Types Packs/Day Years [...] AM EDT documented as of this encounter Progress Notes * Aaron Rivera DMD - 02/11/2024 9:00 AM EDT C/C: dental exam I.O.E: no sensitive to percussion of #32, erythematous and edematous gingiva, gen plaque accumulation, slight sensitive upon gingival probing of molars,soft tissue coverage #32, missing teeth E.O.E: wnl OCS: wnl Head and neck: wnl Radiographic: gen slight periodontal bone loss, localized calculus accumulation, mesial angulated #32 Dx: gen chronic slight periodontitis Tx: prophy, recall, P/P, exo#32 if symptomatic (Pt does not want to have #32 exo at this time) Presley documented in this encounter Plan of Treatment Upcoming Encounters Date Type Department Care Team (Late st Contact Info) Description 09/05/2024 9:15 AM EST Office Visit [facility] CHC MED & PEDS [address] [place] [address] Sarah Patiño MD [address] [place] [address] Scheduled Orders Name Type Priority Associated Diagnoses Orde r Schedule BITE REGISTRATION Dental Routine 1 Occur rences starting 02/11/2024 WAX TRY IN Dental Routine 1 Occurrences starting 02/11/2024 PROPHYLAXIS - ADULT Dental Routine 1 Occ urrences starting 07/28/2024 documented as of this encounter Procedures Procedure Name Priority Date/Time Associated Diagnosis Comments PERIODIC ORAL EVALUATION - ESTABLISHED PATIENT Routine 02/11/2024 9:00 AM EDT DIAGNOSTIC - DIAGNOSTIC IMAGING - INTRAORAL - COMPREHENSIVE SERIES OF RADIOGRAPHIC IMAGES Routine 02/11/2024 9:00 AM EDT ADJUNCTIVE GENERAL SERVICES - PROFESSIONAL VISITS - CASE PRESENTATION, SUBSEQUENT TO DETAILED AND EXTENSIVE TREATMENT PLANNING Routine 02/11/2024 9:00 AM EDT 30 JOEY AMALGAM FILLING Routine 02/11/2024 12:00 AM EDT 19 JOEY AMALGAM FILLING Routine 02/11/2024 12:00 AM EDT 18 JOEY AMALG[facility] FILLING Routine 02/11/2024 12:00 AM EDT 15 O AMALGAM FILLING Routine 02/11/2024 12:00 AM EDT 4 O AMALGAM FILLING Routine 02/11/2024 1 2:00 AM EDT documented in this encounter Visit Diagnoses Not on filedocumented in this encounter Additional Health Concerns Assessment Noted Time PHQ-9 Depression Total Score: 0 04/06/20 23 9:38 AM EDT documented as of this encounter Care Teams Glassware Finisher Relationship Specialty Start Date End Date Sarah Patiño MD [address] [place] [address] PCP - General Family Medicine 07/05/18 documented as of this encounter
--- OUTSIDE RECORDS SUMMARY | 2024-08-01 13:34 | XMS_ITS | Clinical Summary ---
Author Organization [facility] Address [address] [place] [address] Care Team Providers Care Pilot Submersible Name Role Phone Unavailable Primary Care Provider Unavailabl e Social History Tobacco Use Types Packs/Day Years Used Date Smoking Tobacco: Never Assessed Sex and Gender Information Value Date Recorded Sex Assigned at Not on file Gender Identity Not on file Sexual Orientation Not on file Plan of Treatment Health Maintenance Due Date Last Done Comments Breast Cancer Screening 1977 DTaP,Tdap,and Td Vaccines (1 - Tdap) 1996 Hepatitis B Vaccines (1 of 3 - 19+ 3-dose series) 1996 Cervical Cancer Screening: P ap Smear 1998 COVID-19 Vaccine (2023-2 5 season) 2024 Influenza Vaccine (#1) 2024 HIB Vaccines Aged Out No longer eligi [...] on patient's age to complete this topic MMR Vaccines Aged Out No longer eligi ble based on patient's age to complete this topic Meningococcal ACWY Vaccine Aged Out N o longer eligible based on patient's age to complete this topic Pneumococcal Vaccine: Pediat rics (0 to 5 Years) and At-Risk Patients (6 to 64 Years) Aged Out No longer eligible b ased on patient's age to complete this topic RSV Immunization Patients Un ali 20 months Aged Out No longer eligible b ased on patient's age to complete this topic Varicella Vaccines Aged Out No longer eligible based on patient's age to complete this topic
== END 2024-08-01 14:20 | disposition home or self-care (01) ==
LOC: HO.HWS 12:43
PROVIDERS: PCP Pediatrics; Visit Provider Obstetrics & Gynecology
DX: R10.2 Pelvic and perineal pain (principal); N83.299 Other ovarian cyst, unspecified side; D25.9 Leiomyoma of uterus, unspecified
CPT/HCPCS: 99213

== ENCOUNTER → 2024-08-01 12:43 | Outpatient (BNVA) | payer MEDICARE, MEDICAID, SELFPAY | PROVIDERS: PCP Pediatrics; Visit Provider Obstetrics & Gynecology | DX: R10.2 Pelvic and perineal pain (principal); D25.9 Leiomyoma of uterus, unspecified; N83.202 Unspecified ovarian cyst, left side; Z97.5 Presence of (intrauterine) contraceptive device | CPT/HCPCS: 99212 ==

== ENCOUNTER 2024-08-23 11:10 | Outpatient (REF) | payer MEDICARE, MEDICAID, SELFPAY ==
--- NOTE | ~2024-08-23 | US_ITS ---
CLINICAL HISTORY: N83.299 - Other ovarian cyst, unspecified side US pelvis transvaginal Comparison: None Findings: Transvaginal scanning performed. Mildly anteverted slightly retroflexed uterus at 7.5 cm length. Left subserosal fibroid at 3.5 x 3 x 2.9 cm. IUD projects in good position. Endometrium 3 mm thickness. Prominent parametrial vessels, nonspecific although can be seen in pelvic venous congestion syndrome. Right ovary 2.3 x 1.4 x 2.3 cm. Left ovary 2.4 x 1.6 x 2.2 cm. Small calcification seen both ovaries. Apparent color Doppler flow both ovaries. No spectral Doppler imaging. No free fluid. IMPRESSION: Fibroid uterus. IUD projecting good position. Prominent parametrial vessels, nonspecific. Small nonspecific ovarian calcifications. Otherwise normal ovaries. This document has been electronically signed by: Vaughn Matos MD on 08/24/2024 11:59:14
--- OUTSIDE RECORDS SUMMARY | 2024-08-23 11:55 | XMS_ITS | Clinical Summary ---
Author Organization [employer] Address [address] [facility] 7t [place] [address] Care Team Providers Care Warehouse Order Filler Name Role Phone Sarah Patiño MD Primary Care Provider [phone] Allergies Active Allergy Reactions Criticality Noted Date [...] Encounters Date Type Department Care Team Description 08/22/2024 Patient Outreach [facility] [address] [place] [address] Sarah Patiño MD Pre-visit Planning (Pre visit planning LVM ) 08/09/2024 10:35 AM EST Immunization [facility] [address] [place] [address] Bel Paniagua LPN Encounter for immunization 07/25/2024 Telephone [facility] [address] [place] [address] Aaron Rivera DMD 06/05/2024 Orders Only GENERIC EXTERNAL DATA DEPARTMENT Provider, Generic External Data from Last 3 Months Immunizations Name Administration Dates Next Due Hep B, adult 08/09/2024,05/02/2020 Influenza injectable quadriv alent IIV4 with preservative 07/09/2017 Influenza injectable quadriv alent preservative free 04/06/2023,04/03/2020,06/18/2016,2015 Influenza, Split (incl. castro fied surface antigen) 04/07/2013,05/30/2012 Influenza, seasonal, injecta ble, preservative free 08/09/2024 MMR 11/08/2018,09/28/2018 Tdap 07/26/2015 Varicella 11/08/2018,09/28/2018 Social [...] Description 09/05/2024 9:15 AM EST Office Visit [facility] [address] [place] [address] Sarah Patiño MD 505 [place] [address] 10/04/2024 9:00 AM EDT Immunization [facility] [address] [place] [address] Health Maintenance Due Date Last Done Comments CT Colonography 1977 Dental Prophylaxis 1977 FIT DNA/Cologuard 1977 FIT 1977 FOBT 1977 Sigmoidoscopy 1977 Alcohol/Substance Use Screening 1989 Family Planning (PISQ) 1992 Pneumococcal Vaccine: Pediatrics (0 to 5 Years) and At-Risk Patients (6 to 49) Years) (1 of 2 - PCV) 1996 COVID-19 Vaccine ( - season) 2024 03/08/2022, 08/30/2020, 08/02/2020 Depression Screening 04/06/2024 04/06/2023, 04/06/20 23 SDOH Screening 04/06/2024 04/06/2023 Dental Oral Exam 08/14/2024 02/11/2024 Hepatitis B Vaccines (3 of 3 - 19+ 3-dose series) 10/04/2024 08/09/2024, 05/02/2020 Dental X-Ray: Bitewings 02/11/2025 02/11/2024, 12/02 Tobacco Screening 03/15/2025 03/15/2024 DTaP/Tdap/Td Vaccines (2 - Td or Tdap) 07/26/2025 07/26/2015 Mammogram 10/05/2025 10/06/2023, 09/02, 09/11/2022, Additional history exists Dental X-Ray: Full Mouth 02/11/2027 02/11/2024, 12/0 02/2023 Lipid Panel 03/30/2027 03/30/2022 Zoster Vaccines (1 of 2) 2027 Colonoscopy 11/03/2028 11/04/2023 Colorectal Cancer Screening 11/03/2028 Cervical Cancer Screening 06/05/2029 HPV/Cotest 06/05/2029 07/10/2019, 03/30/2017 Pap Smear 06/05/2029 06/05/2024 RSV Patients and Patients Aged 60 years or older (1 - 1-dose 75+ series) 2052 HIV Screening Completed 06/13/2021, 07/10/2019 Hepatitis C Screening Completed 06/13/2021, 020 Influenza Vaccine Completed 08/09/2024, , 04/03/2020, Additional history exists HIB Vaccines Aged Out No longer eligi [...] Associated Diagnosis Comments US PELVIS TRANSVAGINAL Routine 06/14/2024 11:11 AM EST PAP SMEAR Routine 06/05/2024 12:42 PM EST CHLAMYDIA/N. GONORRHOEAE RNA, TMA, UROGENITAL Routine 06/05/2024 12:14 PM EST INTRAORAL - COMPLETE SERIES OF RADIOGRAPHIC IMAGES Routine 02/11/2024 9:00 AM EDT PERIODIC ORAL EVALUATION - ESTABLISHED PATIENT Routine 02/11/2024 9:00 AM EDT HM COLONOSCOPY Routine 11/04/2023 MAMMOGRAPHY Routine 10/06/2023 LIPID PANEL, STANDARD Routine 03/30/2022 11:48 AM EDT ZZZ HISTORICAL HEPATITIS C ANTIBODY Routine 06/13/2021 9:03 AM EST ANDREY HISTORICAL HPV MRNA E6/E7 Routine 07/10/2019 10:16 AM EST from Last 3 Months or Most Recently Relevant to Health Maintenance Results * US Pelvis Transvaginal (06/14/2024 11:11 AM EST) Anatomical Region Laterality Modality Pelvis Ultrasound 06/14/2024 11:1 1 AM EST Narrative 07/23/2024 12:01 PM EST ? [facility] ?[address] ?[place] [address] ? Ultrasound Report ? Signed ? Patient: Radha Lopez ?MR#: [id number] ?? [id number] ? : 1975 ?Acct:[id number] ? Age/Sex: 48 / F ?ADM Date: 06/14/24 ? Loc: HO.US ? Attending Dr: Alek Archibald MD ? Ordering Physician: Alek Archibald MD ?? Date of Service: 06/14/24 ?? Procedure(s): US pelvic and transvaginal ?? Accession Number(s): [id number] ? cc: Sarah Patiño MD; Alek Archibald [...] DD/ 1111 ? TD/TT: 06/14/24 1131 ? Brimmer Blocker: ? Procedure Note Gurpreet Giles - 07/23/[address] [address] Ultrasound Report Signed Patient: Radha Lopez MMR#: [id number] : 1975Acct:[id number] Age/Sex: 48 / FADM Date: 06/14/24 Loc: HO.US Attending Dr: Alek Archibald MD Ordering Physician: Alek Archibald MD Date of Service: 06/14/24 Procedure(s): US pelvic and transvaginal Accession Number(s): [id number] cc: Sarah Patiño MD; Alek Archibald MD [...] 07/23/24 1158 DD/ 1111 TD/TT: 06/14/24 1131 Brimmer Blocker: us [facility] External Provider IMG US PROCEDURES Edited Result - Final * Pap Smear (06/05/2024 12:42 PM EST) 06/05/2024 12:4 2 PM EST 06/06/2024 11:00 AM EST Narrative [facility] - 06/08/2024 12:42 PM EST ----- ------- Name: Radha Lopez ?Age/Sex: 48/F ? : 1975 Unit#: [id number] ?? Attend Dr: Alek Archibald MD ?Re06/05/24 ?Status: DEP REF ? Location: HO.LNP ?Disch: ? ----- ------- SPEC : [id number] ?RECD: 06/06/24-1100 ? STATUS: ??SOUT ? REQ NUM: [id number] ? JENNIFER: 06/05/24-1242 ? SUBM DR: Alek Archibald MD ? ENTERED: ??06/06/24-1107 ?SP TYPE: Pap Smr ?OTHR DR: Sarah [...] Copies To: ?? Sarah Patiño MD ?? [facility] ?? [address] ?? [place] [address] ?? [phone] ?? Alek Archibald MD ?? [facility] ?? [address] [place] [address] [address] ?? [place] [address] ?? [phone] ----- ------- Signed (signature on file) CAROLINE Ames (ASCP) 06/08/24 1242 ? ----- ------- ? END OF REPORT ? us Generic External Data Provider LAB CYTOLOGY MARIA G ALEX Final Result [facility] [address] [place] [address] [phone] * Chlamydia/N. Gonorrhoeae RNA, TMA, Urogenitial (06/05/2024 12:14 PM EST) Pathologist [facility] CT PCR NOT DETECTED Not Detect. [facility] [...] ORDERABLES Final Result [facility] [address] [place] [phone] * (ABNORMAL) Colonoscopy (11/04/2023) [facility] Colonoscopy Abnormal( A) Normal Comment:repeat in 5-7 years 1 sigmoid polyp Sarah Patiño MD [facility] MAINTENANCE Final Resu lt * Mammography (10/06/2023) [facility] Mammogram Normal Normal, Abnormal, BIRADS 1 , BIRADS 2 Anatomical Region Laterality Modality Other Sarah Patiño MD [facility] MAINTENANCE Final Resu lt * (ABNORMAL) LIPID PANEL, STANDARD (03/30/2022 11:48 AM EDT) [facility] Chol/HDLC Ratio 5.2(H) <5.0 (calc) [facility] [...] ?? Jamel LOREDO et al. COURTNEY. 2013;310(19): 1594-8929 ?? (http://education.[place]/faq/KPU202) Non-HDL Cholesterol 159(H) <130 mg/dL (calc) [facility] Comment: For patients with diabetes plus 1 major ASCVD risk ?? factor, treating to a non-HDL-C goal of <100 mg/dL ?? (LDL-C of <70 mg/dL) is considered a therapeutic ?? option. Triglycerides 128 <150 mg/dL [facility] 03/30/2022 11:4 8 AM EDT us Cynthia Manzano MD LAB BLOOD ORDERABLES Final Resul t [facility] [address] * Hepatitis C Antibody (06/13/2021 9:03 AM EST) Hepatitis C Antibody Nonreactive Nonreactive [facility] Comment: Antibodies to HCV not detected; does not exclude early acute HCV infection. HIV AB/AG Nonreactive Nonreactive [facility] Comment: HIV-1 p24 Ag and/or [...] detection of this assay. ?? The [employer] Electrical Instrument Technician HIV Ag/Ab Combo assay result and supplemental assay results should be interpreted in conjunction with the patient's clinical presentation, history and other laboratory results. ??If the results are inconsistent with clinical evidence, additional testing is suggested to confirm the result. Hepatitis B Surface Antigen Negative Negative [facility] 06/13/2021 9:03 AM EST us Alek Archibald MD HISTORICAL/NON ORDERABLE LABS Fi nal Result Performing Organization Address [facility]/ZIP Co de Phone Number [facility] [address] * HPV mRNA E6/E7 (07/10/2019 10:16 AM EST) HPV mRNA E6/E7 Not Detected NOT DETECTED [facility] Comment: This test was performed using the APTIMA(R) HPV Assay ([employer] This assay detects E6/E7 viral messenger RNA (mRNA) from 14 high-risk HPV types (16,18,31,33,35,39,45,51, 52,56,58,59,66,68). For additional information please refer to: http://education.[place]/faq/AGA699k6 (This link is being provided for informational/ educational purposes only.) The analytical performance characteristics of this assay have been determined by [employer] [place], [place]. The modifications have not been cleared or approved by the FDA. This assay has been validated pursuant to the CLIA regulations and is used for clinical purposes. Test Performed by [facility], [employer] [facility], [address] [place] [address] Henrry Loza M.D., Ph.D., Director of Laboratories , CLIA [id number] Please note: ??Effective 03/16/2016, HPV testing will be performed using [employer] APTIMA test which targets mRNA. Detecting mRNA instead of DNA, as in older methods, offers significant improvements in specificity. 07/10/2019 10:1 6 AM EST Historical Provider HISTORICAL/NON ORDERABLE LABS Final Result Performing Organization Address [facility] Co de Phone Number [facility] [address] from Last 3 Months or Most Recently Relevant to Health Maintenance Insurance [facility] STANDARD MEDICARE DENTAL-[facility] MEDICAID STAND ADULT Care Teams Warehouse Order Filler Relationship Specialty Start Date End Date Sarah Patiño MD [address] [place] [address] PCP - General Family Medicine 07/05/18
--- OUTSIDE RECORDS SUMMARY | 2024-08-23 11:55 | XMS_ITS | Encounter Summary ---
Author Organization [employer] Address [address] [facility] [address]t [place] [address] Care Team Providers Care Crepe Box Tender Name Role Phone Sarah Patiño MD Primary Care Provider [phone] Reason for Visit * Reason Comments Med Refill Encounter Details Date Type Department Care Team ([facility] Contact Info) Description 03/19/2023 Refill [facility] [address] [place] [address] Felice Carrillo MD [address] [place] [address] Social History Tobacco Use Types Packs/Day Years [...] Description 09/05/2024 9:15 AM EST Office Visit [facility] PEDS [address] [place], [place] [phone] Sarah Patiño MD 505 [place] [address] 10/04/2024 9:00 AM EDT Immunization [facility] [address] [place] [address] documented as of this encounter Visit Diagnoses Not on filedocumented in this encounter Care Teams Crepe Box Tender Relationship Specialty Start Date End Date Sarah Patiño MD [address] [place] [address] PCP - General Family Medicine 07/05/18 documented as of this encounter
--- OUTSIDE RECORDS SUMMARY | 2024-08-23 11:55 | XMS_ITS | Encounter Summary ---
Author Organization [employer] Address [address] [facility] 7t [place] [address] Care Team Providers Care Blunger Loader Name Role Phone Sarah Patiño MD Primary Care Provider [phone] Reason for Visit * Reason Onset Date Comments Appointment Request 03/09/2023 Encounter Details Date Type Department Care Team ([facility] st Contact Info) Description 03/09/2023 Telephone [facility] [address] [place] [address] Sarah Patiño MD [address] [place] [phone] Appointment Request Social History Tobacco Use Types [...] Mo per last office visit with PCP, Meeting Coordinator does not see any recalls or notes. Please contact at [phone] documented in this encounter Plan of Treatment Upcoming Encounters Date Type Department Care Team (Late st Contact Info) Description 09/05/2024 9:15 AM EST Office Visit [facility] [address] [place] [address] Sarah Patiño MD [address] [place] [address] 10/04/2024 9:00 AM EDT Immunization [facility] [address] [place] [address] documented as of this encounter Visit Diagnoses Not on filedocumented in this encounter Care Teams Blunger Loader Relationship Specialty Start Date End Date Sarah Patiño MD [address] [place] [address] PCP - General Family Medicine 07/05/18 documented as of this encounter
--- OUTSIDE RECORDS SUMMARY | 2024-08-23 11:55 | XMS_ITS | Encounter Summary ---
Author Organization [employer] Address 75 [facility] 7t [place] [address] Care Team Providers Care Cd Storage And Materials Make Up Helper Name Role Phone Sarah Patiño MD Primary Care Provider [phone] Reason for Visit * Reason Comments Dental Exam Comp. Pt has ulcers and cannot take ibuprofen at this time Encounter Details Date Type Department Care Team ([facility] st Contact Info) Description 02/11/2024 9:00 AM EDT Office Visit [facility] ADULT DENTAL [address] [place] [address] Aaron Rivera, DMD [address] [place] [address] Social History Tobacco Use Types Packs/Day Years [...] Description 09/05/2024 9:15 AM EST Office Visit [facility] PED[facility] [address] [place] [address] Sarah Patiño MD 505 [place] [address] 10/04/2024 9:00 AM EDT Immunization [facility] [address] [place] [address] Scheduled Orders Name Type Priority Associated Diagnoses Orde r Schedule BITE REGISTRATION Dental Routine 1 Occur rences starting 02/11/2024 WAX TRY IN Dental Routine 1 Occurrences starting 02/11/2024 PROPHYLAXIS - ADULT Dental Routine 1 Occ urrences starting 07/28/2024 documented as of this encounter Procedures Procedure Name Priority Date/Time Associated Diagnosis Comments PERIODIC ORAL EVALUATION - ESTABLISHED PATIENT Routine 02/11/2024 9:00 AM EDT INTRAORAL - COMPLETE SERIES OF RADIOGRAPHIC IMAGES Routine 02/11/2024 9:00 AM EDT CASE PRESENTATION, DETAILED AND EXTENSIVE TREATMENT PLANNING Routine 02/11/2024 [...] documented as of this encounter Care Teams [employer] Storage [employer] Materials Make Up Helper Relationship Specialty Start Date End Date Sarah Patiño MD [address] [place] [address] PCP - General Family Medicine 07/05/18 documented as of this encounter
--- OUTSIDE RECORDS SUMMARY | 2024-08-23 11:55 | XMS_ITS | Encounter Summary ---
Author Organization [employer] Address 75 [facility] 7t [place] [address] Care Team Providers Care Clinical Documentation Nurse Name Role Phone Sarah Patiño MD Primary Care Provider [phone] Reason for Visit * Reason Onset Date Comments Nurse Triage 06/24/2023 Encounter Details Date Type Department Care Team ([facility] st Contact Info) Description 06/24/2023 Telephone [facility] [address] [place] [address] Sarah Patiño MD [address] [place] [address] Nurse Triage Social History Tobacco Use Types [...] Call Ahead Before Visiting Your Doctor (or BOOKING OFFICER/PA) * FAQ - When Can I Stop [...] Call Ahead Before Visiting Your Doctor (or BOOKING OFFICER/PA) * FAQ - When Can I Stop [...] 09/05/2024 9:15 AM EST Office Visit [facility] PEDS [address] [place] [address] Sarah Patiño MD [address] [place] [address] 10/04/2024 9:00 AM EDT Immunization [facility] MED[facility] [address] [place] [address] documented as of this encounter Visit Diagnoses Not on filedocumented in this encounter Additional Health Concerns Assessment Noted Time PHQ-9 Depression Total Score: 0 04/06/20 23 9:38 AM EDT documented as of this encounter Care Teams Clinical Documentation Nurse Relationship Specialty Start Date End Date Sarah Patiño MD [address] [place] [address] PCP - General Family Medicine 07/05/18 documented as of this encounter
--- OUTSIDE RECORDS SUMMARY | 2024-08-23 11:55 | XMS_ITS | Encounter Summary ---
Author Organization [employer] Address [address] [facility] 7t [place] [address] Care Team Providers Care Slab Puller Name Role Phone Sarah Patiño MD Primary Care Provider [phone] Reason for Visit * Reason Onset Date Comments ER Follow-up 08/02/2023 Encounter Details Date Type Department Care Team ([facility] st Contact Info) Description 08/02/2023 Telephone [facility] [address] [place] [address] Sarah Patiño MD [address] [place] [address] ER Follow-up Social History Tobacco Use Types [...] ED visit on : Date: 07/30/23 Hospital: [facility] Seen for: lower back pain radiating to chest, nausea, heat flashes Patient advised will forward to team nurse for follow up. Please contact at [phone] * Telephone Encounter - Michele Porter - 08/02/2023 8:46 AM EST Patient calling to report ED visit on : Date: 07/30/23 Hospital: [facility] Seen for: lower back pain radiating to chest, nausea, heat flashes Patient advised will forward to team nurse for follow up. Please contact at [phone] documented in this encounter Plan of Treatment Upcoming Encounters Date Type Department Care Team (Late st Contact Info) Description 09/05/2024 9:15 AM EST Office Visit [facility]S [address] [place] [address] Sarah Patiño MD [address] [place] [address] 10/04/2024 9:00 AM EDT Immunization [facility] [address] [place] [address] documented as of this encounter Visit Diagnoses Not on filedocumented in this encounter Additional Health Concerns Assessment Noted Time PHQ-9 Depression Total Score: 0 04/06/20 23 9:38 AM EDT documented as of this encounter Care Teams Slab Puller Relationship Specialty Start Date End Date Sarah Patiño MD 505 [place] [address] PCP - General Family Medicine 07/05/18 documented as of this encounter
--- OUTSIDE RECORDS SUMMARY | 2024-08-23 11:55 | XMS_ITS | Encounter Summary ---
Author Organization [employer] Address [address] [facility] [address] 7t [place] [address] Care Team Providers Care Laborer Car Barn Name Role Phone Sarah Patiño MD Primary Care Provider Encounter Details Date Type Department Care Team ([facility] st Contact Info) Description 08/09/2024 10:[address] [facility] MEDICINE [address] [place] [address] Bel Paniagua LPN Encounter for immunization Social History Tobacco Use Types Packs/Day Years [...] as of this encounter Progress Notes * Bel Paniagua LPN - 08/09/2024 10:35 AM EST Subjective Patient ID: Radha Lopez is a 48 y.o. female who presents here to receive Fluarix Trivalent, Preservative-Free, 6464-1879 seasonal Influenza vaccine. Pt's Influenza Intake form, and guardian reporting, indicated no contraindication to vaccination. Pt educated as to potential side effects of vaccine including fever, muscle aches & headache. Pt tolerated injection well and monitored for 15 minutes post injection. Pt here for 2nd, of 3 dose series, Engerix, Hepatitis B, Vaccine. Patient history and self attestation indicate no contraindication to vaccination. Pt advised of possible side effects of vaccine including fever, headache and fatigue and advised to stay for 15 minutes monitoring post-vaccine. Pt states understanding and agrees to vaccination. documented in this encounter Plan of Treatment Upcoming Encounters Date Type Department Care Team (Late st Contact Info) Description 09/05/2024 9:15 AM EST Office Visit [facility] MED & PEDS [address] [place] [address] Sarah Patiño MD [address] [place] [address] 10/04/2024 9:[address] [facility] [address] [place] [address] documented as of this encounter Visit Diagnoses Diagnosis Encounter for immunization documented in this encounter Additional Health Concerns Assessment Noted Time PHQ-9 Depression Total Score: 0 04/06/20 23 9:38 AM EDT documented as of this encounter Care Teams Laborer Car Barn Relationship Specialty Start Date End Date Sarah Patiño MD [address] [place] [address] PCP - General Family Medicine 07/05/18 documented as of this encounter
--- OUTSIDE RECORDS SUMMARY | 2024-08-23 11:55 | XMS_ITS | Encounter Summary ---
Author Organization [employer] Address [address] [facility] [place] [address] [place] [address] Care Team Providers Care Brass Sorter Name Role Phone Sarah Patiño MD Primary Care Provider [phone] Encounter Details Date Type Department Care Team ([facility] st Contact Info) Description 07/25/2024 Telephone [facility] ADULT DENTAL [address] [place] [address] Aaron Rivera, DMD [address] [place] [address] Social History Tobacco Use Types Packs/Day Years [...] Description 09/05/2024 9:15 AM EST Office Visit [facility] MED & PEDS 505 [place] [address] Sarah Patiño MD 505 [place] [address] 10/04/2024 9:00 AM EDT Immunization [facility] [address] [place] [address] documented as of this encounter Visit Diagnoses Not on filedocumented in this encounter Additional Health Concerns Assessment Noted Time PHQ-9 Depression Total Score: 0 04/06/20 23 9:38 AM EDT documented as of this encounter Care Teams Brass Sorter Relationship Specialty Start Date End Date Sarah Patiño MD [address] [place] [address] PCP - General Family Medicine 07/05/18 documented as of this encounter
--- OUTSIDE RECORDS SUMMARY | 2024-08-23 11:55 | XMS_ITS | Encounter Summary ---
Author Organization [employer] Address [address] [facility] 7t [place] [address] Care Team Providers Care Dual Hose Cementer Name Role Phone Sarah Patiño MD Primary Care Provider [phone] Reason for Visit * Reason Comments Pre-visit Planning Pre visit planning L VM Encounter Details Date Type Department Care Team ([facility] st Contact Info) Description 08/22/2024 Patient Outreach [facility]INE [address] [place] [address] Sarah Patiño MD [address] [place] [address] Pre-visit Planning (Pre visit planning LVM ) Social History Tobacco Use Types Packs/Day Years [...] as of this encounter Progress Notes * Michele Porter - 08/22/2024 3:10 PM EST CC Michele Harman placed outbound call to patient to complete pre-visit planning. No answer at this time.Patient name and were not confirmed. CC left voicemail requesting return call. Direct contact information provided. documented in this encounter Plan of Treatment Upcoming Encounters Date Type Department Care Team (Late st Contact Info) Description 09/05/2024 9:15 AM EST Office Visit [facility] MED & PEDS [address] [place] [address] Sarah Patiño MD [address] [place] [address] 10/04/2024 9:00 AM EDT Immunization [facility] MEDICINE [address] [place] [address] documented as of this encounter Visit Diagnoses Not on filedocumented in this encounter Additional Health Concerns Assessment Noted Time PHQ-9 Depression Total Score: 0 04/06/20 23 9:38 AM EDT documented as of this encounter Care Teams Dual Hose Cementer Relationship Specialty Start Date End Date Sarah Patiño MD [address] [place] [address] PCP - General Family Medicine 07/05/18 documented as of this encounter
--- OUTSIDE RECORDS SUMMARY | 2024-08-23 11:56 | XMS_ITS | Clinical Summary ---
Author Organization [facility] ity Address [address] [place] [address] Care Team Providers Care Stock Turner Name Role Phone Unavailable Primary Care Provider Unavailabl e Social History Tobacco Use Types Packs/Day Years Used Date Smoking Tobacco: Never Assessed Comments Unknown Sex and Gender Information Value Date Recorded Sex Assigned at Not on file Legal Sex Female 4:50 AM EST Gender Identity Not on file Sexual Orientation [...] patient's age to complete this topic Meningococcal B Vacine Aged Out No lo nger eligible based on patient's age to complete this topic Pneumococcal Vaccine: Pediat rics (0 to 5 Years) and At-Risk Patients (6 to 64 Years) Aged Out No longer eligible b ased on patient's age to complete this topic RSV Immunization Patients Un lai 20 months Aged Out No longer eligible b ased on patient's age to complete this topic Varicella Vaccines Aged Out No longer eligible based on patient's age to complete this topic
== END 2024-08-23 11:11 | disposition home or self-care (01) ==
LOC: HO.US 11:10
PROVIDERS: PCP Pediatrics; Visit Provider Obstetrics & Gynecology
DX: N83.299 Other ovarian cyst, unspecified side (principal); D25.9 Leiomyoma of uterus, unspecified
CPT/HCPCS: 76830; 76856

== ENCOUNTER → 2024-08-23 11:12 | Outpatient (BNV) | payer MEDICARE, MEDICAID, SELFPAY | PROVIDERS: PCP Pediatrics; Visit Provider Radiology Diagnostic Radiology | DX: N83.201 Unspecified ovarian cyst, right side (principal); N83.202 Unspecified ovarian cyst, left side | CPT/HCPCS: 76830; 76856 ==

== ENCOUNTER 2024-10-18 09:20 | Outpatient (AMB) | payer MEDICARE, MEDICAID, SELFPAY ==
[2024-10-18 09:38] VITALS: BP 116/74; BMI 29.2
--- NOTE | 2024-10-18 09:38 | A.OFFVIS_ITS ---
Vital Signs 10/18/24 09:38 Height 5 ft 4 in Weight 170 lb BMI 29.2 BP 116/74 Intake Visit Reasons: Ultra sound follow up Allergies vicodin Allergy (Unknown, Uncoded 09/16/23 10:07) abd pain, nausea HPI Comments Details: Presenting for ultrasound follow-up regarding left 2.9 cm complex ovarian cyst seen on previous ultrasound in 06/27 . The patient is doing well with no complaints. Pelvic ultrasound done in 08/29 showed the following: Mildly anteverted slightly retroflexed uterus at 7.5 cm length. Left subserosal fibroid at 3.5 x 3 x 2.9 cm. IUD projects in good position. Endometrium 3 mm thickness. Prominent parametrial vessels, nonspecific although can be seen in pelvic venous congestion syndrome. Right ovary 2.3 x 1.4 x 2.3 cm. Left ovary 2.4 x 1.6 x 2.2 cm. Small calcification seen both ovaries. Apparent color Doppler flow both ovaries. No spectral Doppler imaging. No free fluid.. [facility] Medical History Asthma Anxiety GERD (gastroesophageal reflux disease) Surgical History History of esophagogastroduodenoscopy (EGD) Hx of colonoscopy History of bilateral tubal ligation History of cholecystectomy Family History Unknown No family history of colorectal cancer Social History Alcohol intake: never Patient Tobacco Use Status: Current everyday Tobacco user Tobacco use type: Cigarette Cigarettes Per Day: 9 Sexual orientation: Straight/Heterosexual Gender identity: Female Review of Systems Const All systems reviewed & are unremarkable except as noted in HPI and below Reports as per HPI and Reports no additional complaints GI Reports no additional complaints Reports no additional complaints Physical Exam Vital Signs: Last Vital Signs BP 116/74 10/18/24 09:38 BMI result Body Mass Index 29.2 Assessment & Plan Assessment & Plan (1) Complex ovarian cyst: Code(s): N83.299 - Other ovarian cyst, unspecified side Category: Medical Plan: Discussed with the patient ultrasound findings showing the previously identified complex cyst has resolved. The patient was instructed to call if symptoms recur. All questions were answered the patient verbalized understanding. (2) Uterine myoma: Code(s): D25.9 - Leiomyoma of uterus, unspecified Category: Medical Plan: Discussed with the patient the findings on pelvic ultrasound & the risk of myosarcoma; in addition reviewed with the patient that malignancy and pre malignancy cannot be ruled out without hysterectomy for pathological evaluation ; furthermore, explained to the patient the limitation of pelvic ultrasound and endometrial biopsy in the setting. Discussed with the patient the options of treatment including expectant management versus hysterectomy; the pros and cons, risks benefits of each approach were discussed with the patient including the fact that in cases of myosarcoma, surgical treatment can lead to early diagnosis and positively affects the prognosis; after further discussion, the patient decided to proceed with expectant management. Will repeat pelvic ultrasound periodically. Instructions given to patient to call in case any of the following occurs: pressure symptoms, abnormal uterine bleeding, pelvic pain; and to schedule a six-months pelvic ultrasound (order placed) and a follow-up appointment . All questions answered, the patient verbalized understanding and agreed with the plan . Orders: Orders US pelvic and transvaginal 12 Months D25.9 - Leiomyoma of uterus, unspecified Coding Level of Care Code Est Pt Level 3 (10567) Diagnoses Complex ovarian cyst N83.299 Uterine myoma D25.9
--- OUTSIDE RECORDS SUMMARY | 2024-10-18 10:13 | XMS_ITS | Clinical Summary ---
Author Organization [facility] ity Address [address] [place] [address] Care Team Providers Care Die Reamer Name Role Phone Unavailable Primary Care Provider [...] Vaccine (2023-2 5 season) 2024 Influenza Vaccine (Season Ended) 2025 HIB Vaccines Aged Out No longer eligi [...] age to complete this topic Meningococcal B Vaccine Aged Out No l onger eligible based on patient's age to complete [...]
== END 2024-10-18 10:18 | disposition home or self-care (01) ==
LOC: HO.HWS 09:20
PROVIDERS: PCP Pediatrics; Visit Provider Obstetrics & Gynecology
DX: N83.299 Other ovarian cyst, unspecified side (principal); D25.9 Leiomyoma of uterus, unspecified
CPT/HCPCS: 99213

== ENCOUNTER → 2024-10-18 09:20 | Outpatient (BNVA) | payer MEDICARE, MEDICAID, SELFPAY | PROVIDERS: PCP Pediatrics; Visit Provider Obstetrics & Gynecology | DX: N83.299 Other ovarian cyst, unspecified side (principal); D25.9 Leiomyoma of uterus, unspecified | CPT/HCPCS: 99212 ==

== ENCOUNTER 2025-01-10 12:13 | Outpatient (REF) | payer MEDICARE, MEDICAID, SELFPAY ==
--- OUTSIDE RECORDS SUMMARY | 2025-01-11 12:33 | XMS_ITS | Encounter Summary ---
Author Organization [employer] Address [address] [place] [address] Care Team Providers Care Tar And Ammonia Pump Operator Name Role Phone Sarah Patiño MD Primary Care Provider [phone] Reason for Visit * Reason Onset Date Comments Appointment Request 12/25/2024 Encounter Details Date Type Department Care Team ([facility] Contact Info) Description 12/25/2024 Telephone [facility] [address] [place], [place] [phone] Sarah Patiño MD [address] [place] [address] Appointment Request Social History Tobacco Use Types Packs/Day Years Used Date Smoking Tobacco: Every Day Cigarettes Passive Smoke Exposure: Never Smokeless Tobacco: Never Alcohol Use Standard Drinks/Week Comments Not Currently 0 (1 standard drink = 0.6 oz pur e alcohol) Depression Answer Date Recorded Patient Health Questionnaire-9 Score 3 09/05/2024 Patient Health Questionnaire-9 Score 3 09/05/2024 Last PHQ-9: Questionnaire Data Not on file 0 09/05/2024 Housing Stability Answer Date Recorded What is your housing situation today? I have chaitanya alberts 09/05/[address] you li ve. Do you have problems with any of the following? None of the above 09/05/2024 Food Insecurity Answer Date Recorded Within the past 12 months, y ou worried that your food would run out before you got money to buy more: Never True 09/05/2024 Within the past 12 months,th e food you bought just didn't last and you didn't have enough money to get more: Never True 10/2024 Transportation Answer Date Recorded In the past 12 months, has l ack of transportation kept you from medical appts, meetings, work or from getting things needed for daily living? No 09/05/2024 Utilities Answer Date Recorded In the past 12 months, has t he electric, gas, oil or water company threatened to shut off services in your home? No 09/05/2024 Depression Answer Date Recorded Patient Health Questionnaire-2 Score 1 09/05/2024 Internet Access Answer Date Recorded Internet Access Q1 Yes 09/05/2024 Internet Access Q2 Not on file 09/05/2024 Comments Unknown Sex and Gender Information Value Date Recorded Sex Assigned at Female 05/04/2022 10:14 AM EDT Legal Sex Female 10:14 AM EDT Gender Identity Female 05/04/2022 10:14 AM EDT Sexual Orientation Choose not to disclose 2021 10:14 AM EDT documented as of this encounter Miscellaneous Notes * Telephone Encounter - Aye Ackerman - 12/25/2024 8:10 AM EDT Tc from pt requesting to reschedule apt for anxiety missed on 12/22/24. Contact pt at [phone] documented in this encounter Plan of Treatment Not on file documented as of this encounter Visit Diagnoses Not on filedocumented in this encounter Additional Health Concerns Assessment Noted Time PHQ-9 Depression Total Score: 3 09/06/19 9:17 AM EST documented as of this encounter Care Teams Tar And Ammonia Pump Operator Relationship Specialty Start Date End Date Sarah Patiño MD [address] [place] [address] PCP - General Family Medicine 07/05/18 documented as of this encounter
[2025-01-11 13:25] LABS: Bacterial Vaginosis PCR POSITIVE (Negative); Candida Group PCR NOT DETECTED (Not Detect); Candida glab krusei PCR DETECTED (Not Detect); Trichomonas vaginalis PCR NOT DETECTED (Not Detect)
== END 2025-01-10 12:14 | disposition home or self-care (01) ==
LOC: HO.HHCLNP 12:13
PROVIDERS: Visit Provider General Practice
DX: R10.30 Lower abdominal pain, unspecified (principal)
CPT/HCPCS: 81515

== ENCOUNTER 2025-01-11 08:48 | Outpatient (REF) | payer MEDICARE, MEDICAID, SELFPAY ==
--- OUTSIDE RECORDS SUMMARY | 2025-01-11 09:04 | XMS_ITS ---
Author Name [facility] Organization Unknown Care Team Organization Name Specialty Phone Email Start Date End [facility] NO PCP Primary Care 05/08/2022 05/18/2022
--- OUTSIDE RECORDS SUMMARY | 2025-01-11 09:04 | XMS_ITS | Clinical Summary ---
[facility] Organization [facility] Address [address] [place] [address] Care Team Providers Care Post Office Clerk Name Role Phone Unavailable Primary Care Provider [...] Screening: P ap Smear 1998 COVID-19 Vaccine ( - 2023-2 5 season) 2024 Influenza Vaccine (#1) 2025 HIB Vaccines Aged Out No longer [...] 5 Years) and At-Risk Patients (6 to 49 Years) Aged Out No longer eligible b ased on patient's age to complete this topic RSV Immunization Patients Un lai 20 months Aged Out No longer eligible b ased on patient's age to complete this topic Varicella Vaccines Aged Out No longer eligible based on patient's age to complete this topic
[2025-01-11 12:22] LABS: Alanine Aminotransferase 22 U/L (0-31); Albumin Level 4.4 g/dL (3.5-5.0); Alkaline Phosphatase 60 U/L (39-117); Anion Gap 11 (12-20); Aspartate Amino Transferase 26 U/L (5-31); Blood Urea Nitrogen 9 mg/dL (9-16); Calcium 8.7 mg/dL (8.4-10.2); Carbon Dioxide 25 mmol/L (22-29); Chloride 106 mmol/L (96-108); Estimated Glomerular Filt Rate > 60; Lipase 23 U/L (8-78); Potassium 4.2 mmol/L (3.3-5.1); Sodium 138 mmol/L (135-145); Total Protein 7.2 g/dL (6.5-8.0)
[2025-01-11 12:36] LABS: MANUAL DIFF FLAG NO
[2025-01-11 12:37] LABS: Hematocrit 42.0 % (37.0-47.0); Hemoglobin 14.3 g/dl (12.0-16.0); Imm Gran Abs Auto 0.06 X10*3/uL (0.00-0.03); Imm Gran Pct Auto 0.6 % (0.0-0.4); Lymphocytes Absolute Auto 3.6 X10*3/uL (1.2-4.9); Mean Corpuscular HGB Conc 34.0 g/dl (31.0-35.0); Mean Corpuscular Hemoglobin 31.1 pg (27.0-33.0); Mean Corpuscular Volume 91.3 fL (80.0-98.0); NRBC Abs Auto 0.000 X10*3/uL (0.0-0.012); NRBC Pct Auto 0.0 /100WBC (0.0-0.2); Platelet Count 302 X10*3/uL (160-400); Red Blood Count 4.60 X10*6/uL (4.20-5.50); White Blood Count 10.3 X10*3/uL (4.8-10.8)
== END 2025-01-11 08:49 | disposition home or self-care (01) ==
LOC: HO.HHCL 08:48
PROVIDERS: PCP Pediatrics; Visit Provider General Practice
DX: F41.1 Generalized anxiety disorder (principal); R10.30 Lower abdominal pain, unspecified
CPT/HCPCS: 36415; 80053; 83690; 84443; 85025

== ENCOUNTER 2025-01-23 15:36 | Outpatient (AMB) | payer MEDICARE, MEDICAID, SELFPAY ==
--- NOTE | 2025-01-23 15:41 | A.OFFVIS_ITS ---
Vital Signs 01/23/25 15:45 Height 5 ft 4 in Weight 170 lb BMI 29.2 BP 106/67 Blood Pressure Location Lt brachial Position Sitting Pulse 76 Pulse Oximetry (%) 97 Oxygen Delivery Method Room Air Intake Visit Reasons: gerd JM pt Intake Note: Patient follow up for GERD/ Ursula pt paris was 09/16/2023 and last EGD/Colonoscopy was 11/04/[address] Cortez with 5/7 yrs recall. Patient cc: lower abdominal pain, pushing and moving when she is doing BM to be able to used bathroom, and denies any other GI issues. 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 Last visit with JORY Cruz 09/16/2023 for follow up abdominal pain. Radha reports 5?6 months of constipation, described as daily bowel movements (sometimes 2?3x/day) but requiring significant straining and manual maneuvers to evacuate stool, which passes in pieces. She notes a persistent sensation of incomplete evacuation and describes stool consistency as sometimes hard, with occasional light brown or pale color. She denies hematochezia or melena. She experiences a sharp, brief pain in the right lower abdomen after defecation, and ongoing bloating. She reports no nausea or vomiting. She has a history of chronic gastritis, with symptoms controlled by dietary avoidance of triggers and intermittent use of omeprazole, though not taken daily. She notes that coffee often stimulates bowel movements. Reports currently Low appetite, limited morning intake, main meals include rice, beans, chicken, occasional vegetables, and fruit; moderate fiber intake; snacks include cookies and bananas. Recent evaluation for abdominal pain at urgent care ruled out UTI; diagnosed with yeast infection, currently under treatment. Reports an ovarian cyst on the left side, with upcoming pelvic US scheduled. Patient denies: fever/chills, n/v, appetite changes, pyrosis, regurgitation,dysphasia, unintentional wt loss, ab pain or melena/hematochezia. [facility] Medical History (Updated 01/23/25 @ 17:33 by Lali Olvera CNP) Ovarian cyst Constipation Asthma Anxiety GERD (gastroesophageal reflux disease) Surgical History History of esophagogastroduodenoscopy (EGD) Hx of colonoscopy History of bilateral tubal ligation History of cholecystectomy Family History Unknown No family history of colorectal cancer Social History Alcohol intake: never Patient Tobacco Use Status: Current everyday Tobacco user Tobacco use type: Cigarette Cigarettes Per Day: 9 Sexual orientation: Straight/Heterosexual Gender identity: Female Review of Systems Const Reports as per HPI ENT Reports as per HPI Card Reports as per HPI Resp Reports as per HPI GI Reports as per HPI Reports as per HPI Physical Exam Vital Signs: Last Vital Signs Pulse 76 01/23/25 15:45 BP 106/67 01/23/25 15:45 Pulse Ox 97 01/23/25 15:45 Oxygen Delivery Method Room Air 01/23/25 15:45 BMI result Body Mass Index 29.2 Const General: healthy appearing, no acute distress and well developed Nutritional Appearance: average body habitus Orientation/consciousness: patient oriented x3 HEENT Head: Yes normal to inspection, Yes normocephalic and Yes atraumatic Face and sinus: Yes normal facial exam Eyes General: appearance normal, both eyes and all related structures Neck Neck: Yes normal visual inspection Resp Effort & Inspection: normal respiratory effort, able to speak in complete sentences, no tracheal deviation and symmetric chest movement Auscultation: clear to auscultation bilaterally Cardio Jugular venous distension: no JVD Rate: regular rate Rhythm: regular rhythm Heart sounds: S1 normal heart sound present, S2 normal heart sound present, no gallops and no murmurs GI Inspection: Yes normal to inspection, No distended, Yes obesity and Yes striae Palpation (GI): Soft to palpation, not firm, nontender and No hepatosplenomegaly present Auscultation: normal bowel sounds Rectal Exam - Female: visual inspection normal, normal sphincter tone, No fecal impaction, No Lesions present (GI), No Anal fissure(s) present, No hemorrhoids, No mass, No tenderness and other (one perianal skin tag) Neuro General: patient oriented x3 Gait exam (Neuro): Normal gait present Psych Appearance: grossly normal Mental Status: mental status grossly normal Speech and movement: Normal speech and movement present Affect: normal affect Attitude: cooperative Thought process: Normal thought process present Thought content: Normal thought content present Insight: Good insight present (Psych) Judgement: Good judgement present (Psych) Results Reviewed Results Reviewed: Operative Note Date of Service: 11/04/23 Narrative: Procedure: Upper endoscopy and colonoscopy Indication: GERD, screening Endoscopist: Shalonda Cortez MD Anesthesia Provider: Stephani Robbins CRNA Anesthesia type: MAC Instrument: GIF-H190 and PCF-H190L EGD Procedure: The procedure, indications, preparation and potential complications were reviewed with the patient, who indicated understanding and gave written informed consent to proceed. Physical exam was performed. The endoscope was introduced through the mouth, and advanced to the 3rd part of the duodenum. The mucosa was carefully examined on slow withdrawal of the endoscope. The patient tolerated the procedure well. There were no immediate complications. EGD Findings: Esophagus: Normal mucosa was noted in the esophagus. The Z-line was at 40 cm. Cold forceps biopsies were taken for histology. Stomach: Mild erythema and erosions were noted in the body of the stomach. Retroflexion was performed in the cardia. Cold forceps random gastric biopsies were taken to rule out H pylori. Duodenum: Normal duodenal mucosa. Cold forceps biopsies were taken from the duodenal bulb and 2nd portion of the duodenum to rule out celiac sprue. Colonoscopy Procedure: The patient was then turned for the colonoscopy. A digital rectal exam was performed which was abnormal for ext hemorrhoids. A distal attachment cap was affixed to the tip of the scope and the colonoscope was then inserted through the anus and advanced through the colon and advanced to the cecum at 75 cm and terminal ileum. Appendiceal orifice and ileocecal valve were identified. Mucosa was carefully examined under high definition white light as the instrument was slowly withdrawn in a retrograde panoramic fashion. Retroflexion was performed in rectum. The procedure was not difficult. The quality of the prep was BBPS: 2+2+2 = adequate Withdrawal time 13 minutes Limitations: No limitations Findings: Mucosa: Normal colon and terminal ileum mucosa. Protruding lesions: One sessile polyp size 7 mm was removed from the sigmoid colon. Cold snare polypectomy was performed. The polyp was completely removed and retrieved. Medium internal hemorrhoids without stigmata of recent bleeding. Impression: 1. Normal esophagus 2. Gastritis 3. Normal duodenum 4. Normal colon and terminal ileum mucosa 5. Sigmoid colon polyp removed 6. Internal and external hemorrhoids Recommendations: Follow-up path results Start omeprazole 20mg once daily Avoid NSAIDs Repeat colonoscopy in 5-7depending on the results PATHOLOGY Collected: 11/04/23 Location: [facility] Received: 11/04/23 Diagnosis A. Duodenum, biopsy: Duodenal mucosa within normal limits. B. Stomach, random, biopsy: Antral-type and oxyntic mucosa with mild chronic inactive inflammation; no Helicobacter organisms seen. C. GE junction, biopsy: - Squamous epithelium within normal limits; no inflammation seen. - No glandular epithelium present. D. Colon, sigmoid, polypectomy: Hyperplastic mucosal polyp. Clinical History Pre-Op Dx: GERD, screening Post-Op Dx: Gastritis, hemorrhoids, polyps Date of Service: 10/29/23 Procedure(s): MR abdomen wo/w con Accession Number(s): [id number] cc: Sarah Patiño MD; Ursula Grant PA-C~ EXAMINATION: MR ABDOMEN WITHOUT AND WITH CONTRAST CLINICAL INFORMATION: Abdominal pain. COMPARISON: Abdomen ultrasound from 10/01/2023. Abdomen CT from 07/11/2020. TECHNIQUE: MR abdomen was performed on a high-field magnet without and with use of 7.5 mL intravenous Gadavist contrast. Postcontrast images are performed in multiphase dynamic sequences. Imaging was performed in 3 planes. FINDINGS: LUNG BASES: Normal. No pulmonary consolidation or pleural effusion. LIVER: Liver has normal size, contour and parenchymal signal. No cirrhotic morphology or steatosis. A 1.3 cm T2 hyperintense focus within hepatic segment 7 demonstrates a centripetal pattern of contrast opacification. It is incompletely opacified on the venous phase images. This corresponds to the homogeneously hyperechoic focus seen on 10/01/2023. The imaging findings are diagnostic of cavernous hemangioma. This lesion was 1.2 cm on . GALLBLADDER AND BILIARY TREE: Gallbladder is surgically absent. No dilated bile ducts. PANCREAS: Normal. No edema, pancreatic ductal dilatation or mass. SPLEEN: Normal. ADRENAL GLANDS: Normal. KIDNEYS: Kidneys are normal in size and enhance symmetrically. 0.7 cm and 1.4 cm simple cysts of the upper pole of the right kidney. No renal imaging follow-up is recommended for simple cysts. No hydronephrosis. BOWEL AND PERITONEUM: Stomach is unremarkable. No dilated loops of bowel. No bowel wall thickening or mesenteric fat stranding. No abdominal free fluid. VASCULATURE: Abdominal aorta is normal in caliber and its branches are widely patent. Inferior vena cava is normal. LYMPH NODES: No pathologic sized lymph nodes in the abdomen. SKELETAL: Unremarkable. OTHER: The single shot fast spin-echo T2-weighted images acquired at a large [id number] demonstrate a left-sided subserosal uterine leiomyoma that measures up to 3.3 cm and remains similar in size compared to 07/11/2020. MR/MR abdomen wo/w con IMPRESSION: * 1.3 cm cavernous hemangioma of the liver has not significantly changed in size compared to 07/11/2020. Otherwise, the liver is normal. No evidence of hepatic steatosis. * Benign Bosniak category 1 cysts of the right kidney. * 3.3 cm subserosal uterine leiomyoma is unchanged in size compared to 07/11/2020. Date of Service: 10/01/23 Procedure(s): US abdomen complete Accession Number(s): [id number] cc: Ursula Grant PA-C~ EXAMINATION: US ABDOMEN COMPLETE CLINICAL INFORMATION: Unspecified abdominal pain. Status post cholecystectomy. Normal enzymes. COMPARISON: CT abdomen and pelvis 07/11/2020. Renal ultrasound 09/08/2017. TECHNIQUE: Real-time imaging of the abdominal viscera. Limited visualization due to bowel gas. FINDINGS: PANCREAS: Limited visualization of pancreatic tail and head. Imaged portion of pancreatic body is unremarkable. ABDOMINAL AORTA: Nonaneurysmal. INFERIOR VENA CAVA: Visualized portions are normal. LIVER: Increased hepatic parenchymal heterogeneity and echogenicity could be associated with hepatocellular disease/hepatic steatosis and substantially limits visualization. Correlation with liver function tests and clinical exam recommended to determine further management. 1.2 x 1.3 x 1.2 cm right hepatic echogenic lesion. CT abdomen and pelvis of July 11, 2020 demonstrated a 1 cm hypodense lesion. GALLBLADDER: Surgically absent. COMMON BILE DUCT: Normal in caliber measuring 0.34 cm in diameter. RIGHT KIDNEY: 11.0 x 1.1 x 1.6 cm right renal mid pole cyst with peripheral echogenic foci characteristic of calcification. Limited visualization. No hydronephrosis or renal calculi. The kidney measures 10.5 cm in maximum dimension. LEFT KIDNEY: No hydronephrosis. No renal calculi. Limited visualization. The kidney measures 12.2 cm in maximum dimension. SPLEEN: Normal. The spleen measures 7.9 cm in maximum dimension. FREE FLUID: None. US/US abdomen complete IMPRESSION: 1. Increased hepatic parenchymal heterogeneity and echogenicity could be associated with hepatocellular disease/hepatic steatosis and substantially limits visualization. Correlation with liver function tests and clinical exam recommended to determine further management. 2. A 1.3 cm right hepatic echogenic lesion. CT abdomen and pelvis July 11, 2020 demonstrated a 1 cm hypodense lesion. MRI recommended for further evaluation. 3. A 1.6 cm right renal mid pole cyst with peripheral echogenic foci characteristic of calcification. Assessment & Plan Assessment & Plan (1) Constipation: Comment: 11/04/23 colonoscopy complete with adequate prep-7 mm Sigmoid colon polyp hyperplastic, Internal and external hemorrhoids. per guidelines repeat 7-10 years Code(s): K59.00 - Constipation, unspecified Category: Medical Qualifiers: Constipation type: unspecified constipation type Qualified Code(s): K59.00 - Constipation, unspecified Plan: Symptoms consistent with functional constipation despite daily BMs, likely related to low fiber intake, poor hydration, sedentary lifestyle, and possible pelvic floor dysfunction. No evidence of obstructive pathology on recent colonoscopy or imaging. Additional Testing: None indicated at this time; consider further GI or pelvic floor evaluation if no improvement. Medications: Start docusate sodium (stool softener) at bedtime; initiate fiber supplement in the morning. Reinforced lifestyle modifications to promote regularity: -higher fiber diet, examples provided -adequate hydration with water -150 minutes of moderate intensity exercise per week (2) GERD (gastroesophageal reflux disease): Comment: 11/04/23 Upper endoscopy -gastritis Code(s): K21.9 - Gastro-esophageal reflux disease without esophagitis Category: Medical Qualifiers: Esophagitis presence: without esophagitis Qualified Code(s): K21.9 - Gastro-esophageal reflux disease without esophagitis Plan: EGD-confirmed gastritis, negative for H. pylori, with symptoms responsive to PPI and dietary modification. Additional Testing: None at present; monitor for symptom escalation. Medications: Advised omeprazole daily Encouraged to take omeprazole as prescribed, taken at least 30-60 minutes before a meal. Education on GERD prevention : -Advised against heavy meals; encouraged small, frequent meals instead of large ones. - Instructed to remain upright for 2?3 hours after eating. - Advised to avoid late-night meals, spicy foods, caffeine, alcohol, known dietary triggers, and tight-fitting clothing. - Emphasis placed on gradual implementation of lifestyle changes to improve adherence and symptom control. (3) Ovarian cyst: Code(s): N83.209 - Unspecified ovarian cyst, unspecified side Category: Medical Qualifiers: Laterality: left Qualified Code(s): N83.202 - Unspecified ovarian cyst, left side Plan: Left-sided ovarian cyst under evaluation; not directly related to GI symptoms but may contribute to abdominal discomfort. Additional Testing: Await scheduled pelvic ultrasound. Medications: Continue current management as directed by gynecology. Follow-Up: As per gynecology; update GI if new symptoms arise. Plan Follow-up in 3 months or sooner as needed Time: I spent a total of 38 minutes on the date of encounter which includes: Preparing to see the patient (reviewed previous documentation, test results and medical history) Performing a medically appropriate exam and/or evaluation Ordering medications, tests, and procedures Documenting clinical information in the health record Medications: New methylcellulose (laxative) (Citrucel) Take one tablet daily 500 mg PO DAILY 90 tabs 1RF docusate calcium Take one tablet at bedtime 240 mg PO BEDTIME 90 caps 3RF Refilled omeprazole 20 mg PO DAILY 90 caps 2RF Coding Level of Care Code Established Pt Est Pt Level 4 (66432) Patient Type Established Diagnoses Constipation, unspecified constipation type K59.00 Constipation type: unspecified constipation type Gastroesophageal reflux disease without esophagitis K21.9 Esophagitis presence: without esophagitis Cyst of left ovary N83.202 Laterality: left
[2025-01-23 15:45] VITALS: BP 106/67; PULSE 76; O2SAT 97; BMI 29.2
--- OUTSIDE RECORDS SUMMARY | 2025-01-23 16:25 | XMS_ITS | Clinical Summary ---
Author Organization [facility] Address [address] [address] Phone Care Team Providers Care Black Belt Name Role Phone Vivi Kalie Valenzuela FASHION PHOTOGRAPHER Unavailable [phone] Lisa Grant FASHION PHOTOGRAPHER Primary Care Provider + Immunizations Immunization Administration Dates Next Due Hepatitis B Adult 05/02/2020,05/02/2020 Influenza, Unspecified Formulation 04/03/2020 MMR 11/08/2018 Tdap 07/26/2015 Varicella 11/08/2018 Social History Tobacco Use Types Packs/Day Years Used Date Smoking Tobacco: Never Assessed Education Answer Date Recorded Are you interested in more education? Not on lindy e 10/29/2022 Are you concerned about learning? Not on file 10/29/2022 No 10/29/2022 No 10/29/2022 Digital Access Answer Date Recorded No 11/25/2022 No 11/25/2022 No 11/25/2022 Reliable internet access at home? Not on file 11/25/2022 Device with a working camera? Not on file Comments Unknown Sex and Gender Information Value Date Recorded Sex Assigned at Not on file Legal Sex Female 11:40 AM EDT Gender Identity Not on file Sexual Orientation Not on file Plan of Treatment Health Maintenance Due Date Last Done Comments LIPID PANEL 1977 DEPRESSION SCREENING 1989 SMOKING Hx and SMOKELESS TOBACCO SCREENING 1990 HEPATITIS C SCREENING 1995 HIV ONE-TIME SCREENING (18-6 5 YEARS) 1995 PAP SMEAR 1998 MAMMOGRAM 2017 COLOGUARD 2022 COLONOSCOPY 2022 COLORECTAL CANCER SCREENING 2022 FIT TEST 2022 FOBT 2022 SIGMOIDOSCOPY 2022 VIRTUAL COLONOSCOPY 2022 COVID-19 VACCINE (3 - 2023-2 5 season) 2024 08/30/2020, 08/02/2020 Adult Td,Tdap Booster 07/26/2025 07/26/2015 HEPATITIS A VACCINES Aged Out No long er eligible based on patient's age to complete this topic HIB VACCINES Aged Out No longer eligi ble based on patient's age to complete this topic MENINGOCOCCAL VACCINES (ACWY) Aged Out No longer eligible based on patient's age to complete this topic MENINGOCOCCAL VACCINES (B) Aged Out N o longer eligible based on patient's age to complete this topic PNEUMOCOCCAL VACCINES (0-49 years) Aged Out No longer eligible b ased on patient's age to complete this topic Medical Devices Not on file Insurance MEDICARE PART A & B [facility] MEDICARE PART A & B [place] HEALTH MEDICARE PART [place] & [place] & B Member Subscriber Plan / Payer ([facility] [employer] 05/05/2010-) Name:Radha Lopez Member ID:[id number] Relation to Subscriber:Self Name:Radha Lopez Subscriber ID:[id number] Payer ID:[id number] Group ID:Not on file Type:Medicare [address] [place] HEALTH MEDICARE PART A & B Member Subscriber Plan / Payer ([employer]ive 2010-Present) Name:Radha Lopez Member ID:[id number] Relation to Subscriber:Self Name:Radha Lopez Subscriber ID:[id number] Payer ID:[id number] Group ID:Not on file Type:Medicare Address: [facility] [employer] [facility] [address] [place] [facility] PART A & [facility] Care Teams Black Belt Relationship Specialty Start Date End Date Lisa Grant NP [address] [facility] [address] [place] [address] PCP - General Family Medicine 05/25/20 Kalie Trinidad NP Consulting Provider Family Medicine 05/25/20 Additional Source Comments The information contained in this document represents components of the legal health record. It is not the complete legal health record.[facility]
--- OUTSIDE RECORDS SUMMARY | 2025-01-23 16:25 | XMS_ITS | Encounter Summary ---
Author Organization [employer] Address [address] [facility] [address] [place] [address] Care Team Providers Care Slate Roofer Name Role Phone Sarah Patiño MD Primary Care Provider [phone] Reason for Visit * Reason Onset Date Comments Appointment Request 12/25/2024 Encounter Details Date Type Department Care Team ([facility] Contact Info) Description 12/25/2024 Telephone [facility] [address] [place], [place] [id number] Sarah Patiño MD [address] [place] [address] Appointment Request Social History Tobacco Use Types [...] anxiety missed on 12/22/24. Contact pt at [phone] documented in this encounter Plan of Treatment Upcoming Encounters Date Type Department Care Team ([facility] st Contact Info) Description 02/28/2025 9:00 AM EDT Office Visit [facility] [address] [place] [address] Sarah Patiño MD [address] [place] [address] documented as of this encounter Visit Diagnoses Not on filedocumented in this encounter Additional Health Concerns Assessment Noted Time PHQ-9 Depression Total Score: 3 09/06/19 9:17 AM EST documented as of this encounter Care Teams Slate Roofer Relationship Specialty Start Date End Date Sarah Patiño MD [address] [place] [address] PCP - General Family Medicine 1/1/19 documented as of this encounter
--- OUTSIDE RECORDS SUMMARY | 2025-01-23 16:25 | XMS_ITS | Clinical Summary ---
Author Organization [facility] Address [address] [place] [address] Care Team Providers Care Card Maker Name Role Phone Unavailable Primary Care Provider [...] Vaccine ( - 2023-2 5 season) 2024 Depression Screening 07/05/2024 Influenza Vaccine (#1) 2025 HIB Vaccines Aged [...]
== END 2025-01-23 16:28 | disposition home or self-care (01) ==
LOC: HO.HGI 15:37
PROVIDERS: PCP Pediatrics; Visit Provider Nurse Practitioner Family
DX: K59.00 Constipation, unspecified (principal); K21.9 Gastro-esophageal reflux disease without esophagitis; N83.202 Unspecified ovarian cyst, left side
CPT/HCPCS: 99214

== ENCOUNTER → 2025-01-23 15:36 | Outpatient (BNVA) | payer MEDICARE, MEDICAID, SELFPAY | PROVIDERS: PCP Pediatrics; Visit Provider Nurse Practitioner Family | DX: K21.9 Gastro-esophageal reflux disease without esophagitis (principal); K59.00 Constipation, unspecified; N83.202 Unspecified ovarian cyst, left side | CPT/HCPCS: 99212 ==

== ENCOUNTER 2025-03-09 16:05 | Outpatient (REF) | payer MEDICARE, MEDICAID, SELFPAY ==
--- OUTSIDE RECORDS SUMMARY | 2025-03-09 11:30 | XMS_ITS | Encounter Summary ---
Author Organization [employer] Address [address] [facility] [address] [place] [address] Care Team Providers Care Dental Equipment Technician Name Role Phone Sarah Patiño MD Primary Care Provider Encounter Details Date Type Department Care Team ([facility] st Contact Info) Description 03/09/2025 11:30 AM EDT Office Visit [facility] [address] [place], [place] [phone] Sarah Patiño MD [address] [place] [address] URI, acute (Primary Dx) Social History Tobacco Use Types Packs/Day Years Used Date Smoking Tobacco: Every Day Cigarettes Passive Smoke Exposure: Never Smokeless Tobacco: Never Alcohol Use Standard Drinks/Week Comments Not Currently 0 (1 standard drink = 0.6 oz pur e alcohol) Depression Answer Date Recorded Patient Health Questionnaire-9 Score 14 01/10/2025 Patient Health Questionnaire-9 Score 14 01/10/2025 Last PHQ-9: Questionnaire Data Not on file 0 01/10/2025 Housing Stability Answer Date Recorded What is [...] Answer Date Recorded Patient Health Questionnaire-2 Score 4 01/10/2025 Internet Access Answer Date Recorded Internet Access Q1 Yes 09/05/2024 Internet Access Q2 Not on file 09/05/2024 Comments No Sex and Gender Information Value Date Recorded Sex Assigned at Female 05/04/2022 10:14 AM EDT Legal Sex Female 10:14 AM EDT Gender Identity Female 05/04/2022 10:14 AM EDT Sexual Orientation Choose not to disclose 2021 10:14 AM EDT documented as of this encounter Last Filed Vital Signs Vital Sign Reading Time Taken Comments Blood Pressure 124/90 03/09/2025 11:36 AM EDT Pulse 74 03/09/2025 11:36 AM EDT Temperature 36.3 C (97.4 F) 03/09/2025 11:36 AM EDT Respiratory Rate 20 03/09/2025 11:36 AM EDT Oxygen Saturation 96% 03/09/2025 11:36 AM EDT Inhaled Oxygen Concentration - - Weight 79.4 kg (175 lb) 03/09/2025 11:36 AM EDT Height - - Body Mass Index 30.04 02/28/2025 8:50 AM EDT documented in this encounter Plan of Treatment Scheduled Orders Name Type Priority Associated Diagnoses Orde r Schedule Respiratory Viral Panel PCR Lab Routine URI, acute Ordered: 03/09/2025 documented as of this encounter Procedures Procedure Name Priority Date/Time Associated Diagnosis Comments POCT RAPID COVID ANTIGEN Routine 03/09/2025 11:55 AM EDT URI, acute documented in this encounter Results * POCT Rapid Covid-19 BinaxNOW (03/09/2025 11:55 AM EDT) [facility] Rapid COVID Ag Negative QC Media Lot # [id number] Lot# Expiration Date [id number] Swab 03/09/2025 11:5 5 AM EDT Sarah Patiño MD POINT OF CARE TEST ENTER/EDIT ORDERABLES Final Result documented in this encounter Visit Diagnoses Diagnosis URI, acute- Primary Acute upper respiratory infections of unspecified site documented in this encounter Additional Health Concerns Assessment Noted Time PHQ-9 Depression Total Score: 14 025 3:26 PM EDT documented as of this encounter Care Teams Dental Equipment Technician Relationship Specialty Start Date End Date Sarah Patiño MD [address] [place] [address] PCP - General Family Medicine 07/05/18 documented as of this encounter
--- OUTSIDE RECORDS SUMMARY | 2025-03-09 16:11 | XMS_ITS | Encounter Summary ---
Author Organization [employer] Address [address] [facility] [address] [place] [address] Care Team Providers Care Hepatologist Name Role Phone Sarah Patiño MD Primary Care Provider [phone] Reason for Visit * Reason Onset Date Comments Nurse Triage 06/24/2023 Encounter Details Date Type Department Care Team ([facility] st Contact Info) Description 06/24/2023 Telephone [facility] [address] [place] [address] Sarah Patiño MD [address] [place] [phone] Nurse Triage Social History Tobacco Use Types [...] Call Ahead Before Visiting Your Doctor (or DESIGN ENGINEER [employer]INE [employer]MENT/PA) * FAQ - When Can I Stop [...] Call Ahead Before Visiting Your Doctor (or DESIGN ENGINEER [employer]INE [employer]QUIPMENT/PA) * FAQ - When Can I Stop [...] documented as of this encounter Care Teams Hepatologist Relationship Specialty Start Date End Date Sarah Patiño MD [address] [place] [id number] PCP - General Family Medicine 07/05/18 documented as of this encounter
--- OUTSIDE RECORDS SUMMARY | 2025-03-09 16:11 | XMS_ITS | Encounter Summary ---
Author Organization [employer] Address [address] [facility] [address] [place] [address] Care Team Providers Care Gas Plant Repairer Name Role Phone Sarah Patiño MD Primary Care Provider [phone] Reason for Visit * Reason Onset Date Comments Appointment Request 12/25/2024 Encounter Details Date Type Department Care Team ([facility] Contact Info) Description 12/25/2024 Telephone [facility] [address] [place], [place] [phone] Sarah Patiño MD [address] [place] [address] Appointment Request Social History Tobacco Use Types [...] AM EDT documented as of this encounter Functional Status * Over the past 2 weeks, how often have you been bothered by any of the following problems? Question Answer Date of Assessment Author Patient Health Questionnaire-2 Score 4 01/10/2025 3:26 PM EDT Braeden Mendoza * Little interest or pleasure in doing things Answer Date of Assessment Author More than half the days 01/10/2025 3:26 PM EDT Braeden Mejia * Feeling down, depressed, or hopeless Answer Date of Assessment Author More than half the days 01/10/2025 3:26 PM EDT Braeden Mejia * Trouble falling or staying asleep, or sleeping too much Answer Date of Assessment Author More than half the days 01/10/2025 3:26 PM EDT Braeden Mejia * Feeling tired or having little energy Answer Date of Assessment Author More than half the days 01/10/2025 3:26 PM EDT Braeden Mejia * Poor appetite or overeating Answer Date of Assessment Author More than half the days 01/10/2025 3:26 PM EDT Braeden Mejia * Feeling bad about yourself - or that you are a failure or have let yourself or your family down Answer Date of Assessment Author More than half the days 01/10/2025 3:26 PM EDT Braeden Mejia * Trouble concentrating on things, such as reading the newspaper or watching television Answer Date of Assessment Author More than half the days 01/10/2025 3:26 PM EDT Braeden Mejia * Moving or speaking so slowly that other people could have noticed? Or the opposite - being so fidgety or restless that you have been moving around a lot more than usual. Answer Date of Assessment Author Not at all 01/10/2025 3:26 PM EDT Braeden Charles * Thoughts that you would be better off or hurting yourself in some way Answer Date of Assessment Author Not at all 01/10/2025 3:26 PM EDT Braeden Charles * Patient Health Questionnaire-9 Score Answer Date of Assessment Author 14 01/10/2025 3:26 PM EDT Braeden Charles * How difficult have these problems made it for you to do your work, take care of things at home, or get along with other people? Answer Date of Assessment Author Very difficult 01/10/2025 3:26 PM EDT Braeden Charles * Over the last 2 weeks, how often have you been bothered by any of the following problems? Question Answer Date of Assessment Author Feeling nervous, anxious, or on edge 3 01/10/2025 3:26 PM EDT Braeden Connell Not being able to stop or control worrying 3 01/10/2025 3:26 PM EDT Braeden Connell Worrying too much about different things 3 01/10/2025 3:26 PM EDT Braeden Connell Trouble relaxing 3 01/10/2025 3:26 PM EDT Braeden Mejia Being so restless that it is hard to sit still 3 01/10/2025 3:26 PM ELEANORT Braeden Connell Becoming easily annoyed or irritable 3 01/10/2025 3:26 PM EDT Braeden Connell Feeling afraid as if something awful might happen 1 01/10/2025 3:26 PM ELEANORT Braeden Valverde PAOLA-7 Total Score 19 01/10/2025 3:26 PM EDT Braeden Connell documented as of this encounter Miscellaneous Notes * Telephone Encounter - Aye Ackerman - 12/25/2024 8:10 AM EDT Tc from pt requesting to reschedule apt for anxiety missed on 12/22/24. Contact pt at [phone] documented in this encounter Plan of Treatment Not on file documented as of this encounter Visit Diagnoses Not on filedocumented in this encounter Additional Health Concerns Assessment Noted Time PHQ-9 Depression Total Score: 3 09/06/19 9:17 AM EST documented as of this encounter Care Teams Gas Plant Repairer Relationship Specialty Start Date End Date Sarah Patiño MD [address] [place] [address] PCP - General Family Medicine 07/05/18 documented as of this encounter
--- OUTSIDE RECORDS SUMMARY | 2025-03-09 16:11 | XMS_ITS | Encounter Summary ---
Author Organization [employer] Address [address] [place] [address] Care Team Providers Care Bed Control Specialist Name Role Phone Sarah Patiño MD Primary Care Provider [phone] Encounter Details Date Type Department Care Team ([facility] st Contact Info) Description 01/12/2025 Results Follow-Up [facility] [address] [place] [address] Sona Caruso MD [address] [place] [address] POCT urinalysis dipstick manually resulted, Bacterial Vaginosis, TSH W/Reflex to FT4, Additional followed-up results: 3 Social History Tobacco Use Types Packs/Day Years [...] encounter Miscellaneous Notes * Telephone Encounter - Gela Herrera RN - 01/12/2025 12:51 PM EDT ----- Message from Sona Caruso MD sent at 01/12/2025 12:14 PM EDT ----- Please let patient know that she is positive for two type of changes to vaginal vane- yeast and BV. She can be treated with pills for each of these conditions, of with vaginal creams. What would she prefer? TC placed to pt and the message above was discussed, pt would perfer vaginal creams for treatment * Result Encounter Note - Sona Caruso MD - 01/12/2025 12:15 PM EDT Aside from that, her labs look very normal, and healthy, normal liver, kidney, electrolyte, blood sugar, pancreatic function. * Result Encounter Note - Sona Caruso MD - 01/12/2025 12:14 PM EDT Please let patient know that she is positive for two type of changes to vaginal vane- yeast and BV. She can be treated with pills for each of these conditions, of with vaginal creams. What would sheprefer? documented in this encounter Plan of Treatment Not on file documented as of this encounter Visit Diagnoses Not on filedocumented in this encounter Additional Health Concerns Assessment Noted Time PHQ-9 Depression Total Score: 14 025 3:26 PM EDT documented as of this encounter Care Teams Bed Control Specialist Relationship Specialty Start Date End Date Sarah Patiño MD [address] [place] [id number] PCP - General Family Medicine 07/05/18 documented as of this encounter
--- OUTSIDE RECORDS SUMMARY | 2025-03-09 16:11 | XMS_ITS | Clinical Summary ---
Author Organization [facility] Address [address] [place] [address] Care Team Providers Care Unit Secretary Name Role Phone Unavailable Primary Care Provider [...] Cervical Cancer Screening: P ap Smear 1998 Depression Screening 07/05/2024 COVID-19 Vaccine ( - 2023-2 5 season) 2025 Influenza Vaccine (#1) 2025 HIB Vaccines Aged [...]
--- OUTSIDE RECORDS SUMMARY | 2025-03-09 16:11 | XMS_ITS | Encounter Summary ---
Author Organization [employer] Address [address] [facility] [address] [place] [address] Care Team Providers Care Recessing Machine Operator Name Role Phone Sarah Patiño MD Primary Care Provider [phone] Reason for Visit * Reason Comments Med Refill Encounter Details Date Type Department Care Team ([facility] Contact Info) Description 03/19/2023 Refill [facility] [address] [place] [address] Felice Carrillo MD [address] [place] [address] Social History Tobacco Use Types Packs/Day Years [...] as of this encounter Plan of Treatment Not on file documented as of this encounter Visit Diagnoses Not on filedocumented in this encounter Care Teams Recessing Machine Operator Relationship Specialty Start Date End Date Sarah Patiño MD [address] [place] [address] PCP - General Family Medicine 07/05/18 documented as of this encounter
--- OUTSIDE RECORDS SUMMARY | 2025-03-09 16:11 | XMS_ITS | Clinical Summary ---
Author Organization [employer] Address [address] [facility] 7[address] [place] [address] Care Team Providers Care Engineer/Conductor Name Role Phone Sarah Patiño MD Primary Care Provider Allergies Active Allergy Reactions Criticality Noted Date Comments Hydrocodone-Acetaminophen 01/26/2023 Medications * This document contains information received from the source organization and may not represent a complete record from that organization. Vitamin D3 50 MCG capsule Take 50 mcg by mouth 2 times daily. 04/03/20 22 Active acetaminophen (Tylenol) 500 MG tablet Take 2 tablets (1,000 mg) by mouth every 6 (six) hours if needed for moderate pain or fever for up to 25 doses. 50 tablet 11/26/19 23 Active Additional Information Patient not taking.Reported on 12/03/2023 albuterol 108 (90 Base) MCG/ACT inhaler Inhale 2 puffs every 4 (four) hours if needed. 03/25/20 20 Active pantoprazole (ProtoNix) 20 MG EC tablet Take 20 mg by mouth in the morning. 10/08/19 24 Active tiZANidine (Zanaflex) 2 MG tablet Take 1 tablet (2 mg) by mouth every 8 (eight) hours if needed for muscle spasms for up to 10 days. 30 tablet 09/06/19 25 Active nicotine polacrilex (Nicorette) 2 MG gum Chew 1 each (2 mg) if needed for smoking cessation. 100 each 09/06/19 25 Active busPIRone (Buspar) 5 MG tabletIndicati ons:Moderate anxiety Take 1 tab orally bid prn anxiety 90 tablet 1 01/12/20 25 Active omeprazole (PriLOSEC) [address] capsule Take 1 capsule by mouth Once per day. 01/24/20 25 Active sertraline (Zoloft) 100 MG tablet Take 1 tablet (100 mg) by mouth Once per day. 90 tablet 2 02/29/20 026 Active albuterol 108 (90 Base) MCG/ACT inhaler Inhale 2 puffs every 4 (four) hours if needed for wheezing. 18 g 03/09/20 25 026 Active predniSONE (Deltasone) 20 MG tablet Take 1 tablet (20 mg) by mouth Once per day for 5 days. 5 tablet 03/09/20 25 025 Active azithromycin (Zithromax) 250 MG tablet Take 2 tabs orally on day 1 , then 1 tab daily for 4 more days 6 tablet 03/09/20 Active sertraline (Zoloft) 50 MG tabletIndicati ons:Moderate anxiety Take 1 tablet (50 mg) by mouth Once per day. 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 Date Type Department Care Team Description 03/09/2025 11:30 AM EDT Office Visit [facility] [address] [place] [address] Sarah Patiño MD URI, acute (Primary Dx) 03/09/2025 Travel 03/09/2025 Telephone [facility] [address] [place] [address] Sarah Patiño MD Nurse Triage 03/02/2025 Telephone [facility] [address] [place] [address] Sarah Patiño MD Care Coordination 02/28/2025 9:00 AM EDT Office Visit [facility] [address] [place] [address] Sarah Patiño MD PAOLA (generalized anxiety disorder) (Primary Dx); Tobacco abuse; Lower abdominal pain 02/28/2025 Travel 02/27/2025 Travel 01/31/2025 Travel 01/22/[address] [address] Sarah Patiño MD Acute vaginitis 01/16/2025 Orders Only [address] [address] Sona Caruso MD BV (bacterial vaginosis) (Primary Dx); Acute vaginitis 01/15/[address] [address] Zakiya Castañeda RN Results 01/12/2025 Results Follow-Up [address] [address] Sona Caruso MD POCT urinalysis dipstick manually resulted, Bacterial Vaginosis, TSH W/Reflex to FT4, Additional followed-up results: 3 01/11/2025 Telephone [facility] [address] [place] [phone] Sarah Patiño MD requesting call back ; Results 01/10/2025 2:20 PM EDT Office Visit [facility] [address] [place] [phone] Sona Caruso MD Lower abdominal pain (Primary Dx); Moderate anxiety; Generalized anxiety disorder 01/10/2025 Travel 12/29/[address] [address] Sarah Patiño MD No Show 12/25/2024 Telephone [facility] [address] [place] [address] Sarah Patiño MD Appointment Request 12/22/[address] [address] Sarah Patiño MD No Show 12/20/2024 Telephone [facility] [address] [place] [address] Sarah Patiño MD Nurse Triage from Last 3 Months Immunizations Immunization Administration Dates Next Due Hep B, adult 10/04/2024,08/09/2024,05/02/2020 Influenza injectable quadriv alent IIV4 with preservative [...] (175 lb) 03/09/2025 11:36 AM EDT Height 162.6 cm (5' 4 ) 02/28/2025 8:50 AM EDT Body Mass Index 30.04 02/28/2025 8:50 AM EDT Plan of Treatment Health Maintenance Due Date Last Done Comments CT Colonography 1975 Dental Prophylaxis 1975 FIT DNA/Cologuard 1975 FIT 1975 FOBT 1975 Sigmoidoscopy 1975 Family Planning (PISQ) 1992 Pneumococcal Vaccine: Pediatrics (0 to 5 Years) and At-Risk Patients (6 to 49) Years (1 of 2 - PCV) 1996 Dental Oral Exam 08/14/2024 02/11/2024 Dental X-Ray: Bitewings 02/11/2025 02/11/2024, 12/02 COVID-19 Vaccine ( season) 2025 03/08/2022, 08/30/2020, 08/02/2020 Influenza Vaccine (#1) 2025 , 04/06/2023, 04/03/2020, Additional history exists Depression Monitoring 07/13/2025 01/10/2025, 025 DTaP/Tdap/Td Vaccines (2 - Td or Tdap) 07/26/2025 07/26/2015 Alcohol/Substance Use Screening 09/05/2025 09/05/2024 SDOH Screening 09/05/2025 09/05/2024 Disability Screening 10/02/2025 10/02/2024 Mammogram 10/05/2025 10/06/2023, 09/02, 09/11/2022, Additional history exists Tobacco Screening 02/28/2026 02/28/2025 Dental X-Ray: Full Mouth 02/11/2027 02/11/2024, 12/0 02/2023 Lipid Panel 03/30/2027 03/30/2022 Zoster Vaccines (1 of 2) 2027 Cervical Cancer Screening 06/05/2029 HPV/Cotest 06/05/2029 07/10/2019, 03/30/2017 Pap Smear 06/05/2029 06/05/2024 Colonoscopy 11/03/2030 11/04/2023 Colorectal Cancer Screening 11/03/2030 RSV Patients and Patients Aged 60 years or older (1 - 1-dose 75+ series) 2052 HIV Screening Completed 06/13/2021, 07/10/2019 Hepatitis C Screening Completed 06/13/2021, 020 Hepatitis B Vaccines Completed 10/04/2024, 08/09/2024, 05/02/2020 HIB Vaccines Aged Out No longer eligi [...] Routine 03/09/2025 11:55 AM EDT URI, acute LIPASE Routine 01/11/2025 8:53 AM EDT Lower abdominal pain COMPREHENSIVE METABOLIC PANEL Routine 01/11/2025 8:53 AM EDT Lower abdominal pain CBC WITH AUTO DIFFERENTIAL Routine 01/11/2025 8:53 AM EDT Lower abdominal pain TSH W/REFLEX TO FT4 Routine 01/11/2025 8 :53 AM EDT Lower abdominal pain Generalized anxiety disorder POCT URINALYSIS DIPSTICK Routine 01/10/2025 2:54 PM EDT Lower abdominal pain BACTERIAL VAGINOSIS PANEL Routine 01/10/2025 2:50 PM EDT Lower abdominal pain PAP SMEAR Routine 06/05/2024 12:42 PM EST INTRAORAL - COMPLETE SERIES OF RADIOGRAPHIC IMAGES Routine 02/11/2024 9:00 AM EDT PERIODIC ORAL EVALUATION - ESTABLISHED PATIENT Routine 02/11/2024 9:00 AM EDT HM COLONOSCOPY Routine 11/04/2023 HM MAMMOGRAPHY Routine 10/06/2023 LIPID PANEL, STANDARD Routine 03/30/2022 11:48 AM EDT ZZZ HISTORICAL HEPATITIS C ANTIBODY Routine 06/13/2021 9:03 AM EST ZZZ HISTORICAL HPV MRNA E6/E7 Routine 07/10/2019 10:16 AM EST from Last 3 Months or Most Recently Relevant to Health Maintenance Results * POCT Rapid Covid-19 BinaxNOW (03/09/2025 11:55 AM EDT) Pathologist [facility] Rapid COVID Ag Negative QC Media Lot # [id number] Lot# Expiration Date [id number] Swab 03/09/2025 11:5 5 AM EDT us Sarah Patiño MD POINT OF CARE TEST ENTER/EDIT ORDERABLES Final Result * TSH W/Reflex to FT4 (01/11/2025 8:53 AM EDT) Pathologist [facility] TSH reflex Free T4 2.15 0.32 - 4.0 uIU/mL [facility] Blood Venous blood specimen / Unknown 01/11/2025 8:53 AM EDT 01/11/2025 11:43 AM EDT us Sona Caruso MD LAB BLOOD ORDERABLES Final Res ult Performing Organization Address City/State/[facility] Co de Phone Number [facility] [address] [place] [phone] * (ABNORMAL) CBC auto differential (01/11/2025 8:53 AM EDT) [facility] White Blood Count 10.3 4.8 - 10.8 X10*3/uL [facility] Red Blood Count 4.60 4.20 - 5.50 X10*6/uL [facility] Hemoglobin 14.3 12.0 - 16.0 g/dl [facility] Hematocrit 42.0 37.0 - 47.0 % [facility] Mean Corpuscular Volume 91.3 80.0 - 98.0 fL [facility] Mean Corpuscular Hemoglobin 31.1 27.0 - 33.0 pg [facility] Mean Corpuscular HGB Conc 34.0 31.0 - 35.0 g/dl [facility] Red Cell Distribution Width 12.6 11.0 - 16.0 % [facility] Platelet Count 302 160 - 400 X10*3/uL [facility] Mean Platelet Volume 10.1 9.4 - 12.3 fL [facility] Neutrophils Percent Auto 57.3 45 - 73 % [facility] Imm Gran Pct Auto 0.6(H) 0.0 - 0.4 % [facility] Lymphocytes Percent Auto 34.6 20 - 40 % [facility] Monocytes Percent Auto 5.2 2 - 11 % [facility] Eosinophils Percent Auto 1.5 0 - 4 % [facility] Basophils Percent Auto 0.8 0 - 2 % [facility] NRBC Pct Auto 0.0 0.0 - 0.2 /100WBC [facility] Neutrophils Absolute Auto 5.9 2.0 - 8.3 x10*3/uL [facility] Imm Gran Abs Auto 0.06(H) 0.00 - 0.03 X10*3/uL [facility] Lymphocytes Absolute Auto 3.6 1.2 - 4.9 X10*3/uL [facility] Monocytes Absolute Auto 0.5 0.1 - 1.2 X10*3/uL [facility] Eosinophils Absolute Auto 0.2 0.0 - 0.4 X10*3/uL [facility] Basophils Absolute Auto 0.1 0.0 - 0.2 X10*3/uL [facility] NRBC Abs Auto 0.000 0.0 - 0.012 X10*3/uL [facility] Blood Venous blood specimen / Unknown 01/11/2025 8:53 AM EDT 01/11/2025 12:29 PM EDT us Sona Caruso MD LAB BLOOD ORDERABLES Final Res ult [facility] [address] [place] [address] [phone] * Lipase (01/11/2025 8:53 AM EDT) Lipase 23 8 - 78 U/L [facility] Blood Venous blood specimen / Unknown 01/11/2025 8:53 AM EDT 01/11/2025 11:43 AM EDT us Sona Caruso MD LAB BLOOD ORDERABLES Final Res ult [facility] [address] [place] [address] [phone] * (ABNORMAL) Comprehensive Metabolic Panel (01/11/2025 8:53 AM EDT) Sodium 138 135 - 145 mmol/L [facility] Potassium 4.2 3.3 - 5.1 mmol/L [facility] Chloride 106 96 - 108 mmol/L [facility] Carbon Dioxide 25 22 - 29 mmol/L [facility] Anion Gap 11(L) 12 - 20 [facility] Urea Nitrogen (BUN) 9 9 - 16 mg/dL [facility] Creatinine, Serum 0.64 0.5 - 1.4 mg/dL [facility] Estimated Glomerular Filt Rate >60 [facility] Comment:Chronic Kidney Disea se: Estimated GFR < 60 mL/min/1.35j1Whwxvo Kidney Disease: Estimated GFR < 15 mL/min/1.73m2 Glucose 96 60 - 115 mg/dL [facility] Calcium 8.7 8.4 - 10.2 mg/dL [facility] Bilirubin, Total 0.4 0.0 - 1.0 mg/dL [facility] Aspartate Amino Transferase 26 5 - 31 U/L [facility] Alanine Aminotransferase 22 0 - 31 U/L [facility] Total Protein 7.2 6.5 - 8.0 g/dL [facility] Albumin Level 4.4 3.5 - 5.0 g/dL [facility] Alkaline Phosphatase 60 39 - 117 U/L [facility] Blood Venous blood specimen / Unknown 01/11/2025 8:53 AM EDT 01/11/2025 11:43 AM EDT us Sona Caruso MD LAB BLOOD ORDERABLES Final Res ult [facility] [address] [place] [address] [phone] * (ABNORMAL) POCT urinalysis dipstick manually resulted (01/10/2025 2:54 PM EDT) Color, UA Yellow Clarity, UA Cloudy Glucose, UA Negative Bilirubin, UA Negative Ketones, UA Negative Spec Grav, UA 1.015 Blood, UA Positive(A) Negative, None Detected Comment:Trace pH, UA 7.5 Protein, UA Trace Urobilinogen, UA 1.0 Leukocytes, UA Trace Negative, Rare, Trace Nitrite, UA Negative Negative, None Detected QC Media Lot # OK Urine 01/10/2025 2:54 PM EDT Sona Caruso MD POINT OF CARE TEST ENTER/EDIT ORDERABLES Final Result * (ABNORMAL) Bacterial Vaginosis (01/10/2025 2:50 PM EDT) TRICHOMONAS VAGINALIS DETECTION BY PCR NOT DETECTED Not Detect [facility] BACTERIAL VAGINOSIS DETECTION BY PCR POSITIVE(A) Negative [facility] Comment:The BV organism targ ets of the Xpert Xpress MVP test can becommensal in women; Xpert Xpress MVP positive results forbacterial vaginosis should be considered in conjunction withother clinical and patient information to determine thedisease status. Organisms that are not detected by the XpertXpress MVP test have also been reported to be associatedwith BV and aerobic vaginitis.The Xpert Xpress MVP test performance has not been evaluatedin patients under the age of 14. STARR GROUP DETECTION BY PCR NOT DETECTED Not Detect [facility] Starr glab krusei PCR DETECTED(A) Not Detect [facility] Swab Vaginal structure / Unknown 01/10/2025 2:50 PM EDT 01/11/2025 12:14 PM EDT Sona Caruso MD LAB MICROBIOLOGY - GENERAL ORD ERABLES Final Result [facility] [address] [place] [address] [phone] * Pap Smear (06/05/2024 12:42 PM EST) 06/05/2024 12:4 2 PM EST 06/06/2024 11:00 AM EST Narrative [facility] - 06/08/2024 12:42 PM EST ----- ------- Name: Radha Lopez Age/Sex: 48/F : 1975 Unit#: [id number] Attend Dr: Alek Archibald MD Re06/05/24 Status: DEP REF Location: [facility] Disch: ----- ------- SPEC : [id number] RECD: 06/06/24 STATUS: CHRISKirsten MARTIN NUM: [id number] JENNIFER: 06/05/24-[address] [facility] [address]: Alek Archibald MD ENTERED: 06/06/24-1107 SP TYPE: Pap Smr OTHR DR: Sarah Patiño MD ORDERED: Pap Smear Interpretation Satisfactory for evaluation. Negative for intraepithelial lesion or malignancy. No endocervical cells seen. Mild inflammation. HPV High Risk: Negative HPV Genotyping 16: Negative HPV Genotyping 18: Negative Clinical Information LMP: Mirena Previous PAP test: Unknown date/findings Material Received ThinPrep-Cervical Copies To: Sarah Patiño MD [facility] [address] [place] [address] Alek Archibald MD [facility] [address] [place] [address] ----- ------- Signed (signature on file) CAROLINE Ames (ASCP) 06/08/24 1242 ----- ------- END OF REPORT Generic External Data Provider LAB CYTOLOGY MARIA G ALEX Final Result [facility] [address] [place] [address] [phone] * (ABNORMAL) Colonoscopy (11/04/2023) Colonoscopy Abnormal( A) Normal Comment:repeat in 5-7 years 1 sigmoid polyp us Sarah Patiño MD HEALTH MAINTENANCE Final Resu lt * Mammography (10/06/2023) Mammogram Normal Normal, Abnormal, BIRADS 1 , BIRADS 2 Anatomical Region Laterality Modality Other us Sarah Patiño MD HEALTH MAINTENANCE Final Resu lt * (ABNORMAL) LIPID PANEL, STANDARD (03/30/2022 11:48 AM EDT) Chol/HDLC Ratio 5.2(H) <5.0 (calc) [facility] Cholesterol, Total 197 <200 mg/dL [facility] HDL Cholesterol 38(L) > OR = 50 mg/dL [facility] LDL Cholesterol 135(H) mg/dL (calc) [facility] Comment: Reference range: <100 Desirable range <100 mg/dL for primary prevention; <70 mg/dL for patients with CHD or diabetic patients with > or = 2 CHD risk factors. LDL-C is now calculated using the Jamel-Hernandez calculation, which is a validated novel method providing better accuracy than the Friedewald equation in the estimation of LDL-C. Jamel SS et al. COURTNEY. 2013;310(19): 0107-2747 (http://education.Nuzzel/faq/SDW097) Non-HDL Cholesterol 159(H) <130 mg/dL (calc) [facility] Comment: For patients with diabetes plus 1 major ASCVD risk factor, treating to a non-HDL-C goal of <100 mg/dL (LDL-C of <70 mg/dL) is considered a therapeutic option. Triglycerides 128 <150 mg/dL [facility] 03/30/2022 11:4 8 AM EDT us Cynthia Manzano MD LAB BLOOD ORDERABLES Final Resul t [facility] [address] * Hepatitis C Antibody (06/13/2021 9:03 AM EST) Hepatitis C Antibody Nonreactive Nonreactive [facility] Comment: Antibodies to HCV not detected; does not exclude early acute HCV infection. HIV AB/AG Nonreactive Nonreactive [facility] Comment: HIV-1 p24 Ag and/or HIV-1/HIV-2 Ab not detected. A test result that is nonreactive does not exclude the possibility of exposure to or infection with HIV-1 and/or HIV-2. Nonreactive results in this assay for individuals with prior exposure to HIV-1 and/or HIV-2 may be due to antigen and antibody levels that are below the limit of detection of this assay. The [employer] HIV Ag/Ab Combo assay result and supplemental assay results should be interpreted in conjunction with the patient's clinical presentation, history and other laboratory results. If the results are inconsistent with clinical evidence, additional testing is suggested to confirm the result. Hepatitis B Surface Antigen Negative Negative [facility] 06/13/2021 9:03 AM EST us Alek Archibald MD HISTORICAL/NON ORDERABLE LABS Fi nal Result [facility] [address] * HPV mRNA E6/E7 (07/10/2019 10:16 AM EST) HPV mRNA E6/E7 Not Detected NOT DETECTED [facility] Comment: This test was performed using the APTIMA(R) HPV Assay ([employer] This assay detects E6/E7 viral messenger RNA (mRNA) from 14 high-risk HPV types (16,18,31,33,35,39,45,51, 52,56,58,59,66,68). For additional information please refer to: http://education.Veratect/faq/IEY466u5 (This link is being provided for informational/ educational purposes only.) The analytical performance characteristics of this assay have been determined by [employer] [place], [place]. The modifications have not been cleared or approved by the FDA. This assay has been validated pursuant to the CLIA regulations and is used for clinical purposes. Test Performed by [facility] [employer] [place], [address] [place] [address] Henrry Loza M.D., Ph.D., Director of Laboratories , CLIA [id number] Please note: Effective 03/16/2016, HPV testing will be performed using [employer]'s APTIMA test which targets mRNA. Detecting mRNA instead of DNA, as in older methods, offers significant improvements in specificity. 07/10/2019 10:1 6 AM EST us Historical Provider HISTORICAL/NON ORDERABLE LABS Final Result [facility] [address] from Last 3 Months or Most Recently Relevant to Health Maintenance Insurance MEDICARE [facility] MEDICAID STAND ADULT Care Teams Engineer/Conductor Relationship Specialty Start Date End Date Sarah Patiño MD [address] [place] [phone] PCP - General Family Medicine 07/05/18
--- OUTSIDE RECORDS SUMMARY | 2025-03-09 16:11 | XMS_ITS | Clinical Summary ---
Author Organization [facility] Address [address] [address] Phone Care Team Providers Care Tower Technician Name Role Phone Vivi Kalie Valenzuela MEDICAL OFFICE WORKER Unavailable [phone] Lisa Grant MEDICAL OFFICE WORKER Primary Care Provider + Immunizations Immunization Administration [...] FOBT 2022 SIGMOIDOSCOPY 2022 VIRTUAL COLONOSCOPY 2022 INFLUENZA VACCINE (#1) 2025 04/03/2020 COVID-19 VACCINE (2024-2 6 season) 2025 08/30/2020, 08/02/2020 Adult Td,Tdap Booster 07/26/2025 07/26/2015 [...] file Insurance MEDICARE PART A & B [facility] MEDICARE PART A & B [place] A & B Member Subscriber Plan / Payer ( fective 2010-) Name:Radha Lopez Member ID:[id number] Relation to Subscriber:Self Name:Radha Lopez Subscriber ID:[id number] Payer ID:[id number] Group ID:Not on file Type:Medicare [facility] [employer] [facility] [address] [place], [place] [address]HEALTH MEDICARE PART A & B [place] A & B MEDICARE PART A & [place] PART A & B MEDICARE PART A & B [address] [place], [place] [address]HEALTH MEDICARE PART A & [facility] Care Teams Tower Technician Relationship Specialty Start Date End Date Lisa Grant NP [address] [address] PCP - General Family Medicine 05/25/20 Kalie Trinidad NP Consulting Provider Family Medicine 05/25/20 Additional Source Comments The information contained in this document represents components of the legal health record. It is not the complete legal health record.[facility]
--- OUTSIDE RECORDS SUMMARY | 2025-03-09 16:11 | XMS_ITS | Encounter Summary ---
Author Organization [employer] [facility] Address [address] [place] [address] Care Team Providers Care Elect Equip Maint Eng Name Role Phone Sarah Patiño MD Primary Care Provider [phone] Encounter Details Date Type Department Care Team ([facility] st Contact Info) Description 01/16/2025 Orders Only [facility] [address] [place] [address] Sona Caruso MD [address] [place] [address] BV (bacterial vaginosis) (Primary Dx); Acute vaginitis Social History Tobacco Use Types Packs/Day Years [...] as of this encounter Visit Diagnoses Diagnosis BV (bacterial vaginosis)- Primary Unspecified vaginitis and vulvovaginitis Acute vaginitis Unspecified vaginitis and vulvovaginitis documented in this encounter Additional Health Concerns Assessment Noted Time PHQ-9 Depression Total Score: 14 025 3:26 PM EDT documented as of this encounter Care Teams Elect Equip Maint Eng Relationship Specialty Start Date End Date Sarah Patiño MD [address] [place] [address] PCP - General Family Medicine 07/05/18 documented as of this encounter
--- OUTSIDE RECORDS SUMMARY | 2025-03-09 16:11 | XMS_ITS | Encounter Summary ---
Author Organization [employer] Address [address] [place] [address] Care Team Providers Care Dishtank Operator Name Role Phone Sarah Patiño MD Primary Care Provider [phone] Reason for Visit * Reason Onset Date Comments Nurse Triage 03/09/2025 Encounter Details Date Type Department Care Team ([facility] st Contact Info) Description 03/09/2025 Telephone [facility] [address], [place] [id number] Sarah Patiño MD [address] [place] [address] Nurse Triage Social History Tobacco Use Types [...] encounter Miscellaneous Notes * Telephone Encounter - Becky Montana RN - 03/09/2025 9:43 AM EDT called pt to triage, spoke to pt. pt states several days duration of congestion, cough, mucous, chills, and rib pain due to coughing. pt reports using OTC cough and cold medication with some relief. pt requesting appt to be seen, and was given appt today with [facility] provider at 11:30 for exam. pt denies fever, severe or sustained sob, vomiting, or other associated symptoms. pt understands and agrees with plan. insurance verified. advised home care: rest, fluids, steam, humidifier, warm saltwater gargles, lozenges, OTC pain or fever reliever as needed and call back if worsening or new concerns. pt understands and agrees with plan. Protocol Used: Cough (Adult) Protocol-Based Disposition: See in Office or Video Visit Today or Tomorrow Video visit offer not recorded Positive Triage Question: * Patient wants to be seen * All higher-acuity triage questions were negative Care Advice Discussed: * Reassurance and Education - Cough * Cough Medicines * Cough Syrup With Dextromethorphan * Coughing Spells * Prevent Dehydration * Avoid Tobacco Smoke * Humidifier * Fever Medicines * Reasons To Call Back - Difficulty breathing - Cough lasts more than 3 weeks - Fever lasts more than 3 days - You become worse * Telephone Encounter - Aye Tyron - 03/09/2025 8:26 AM EDT Symptoms: Nasal Allergies (Hay Fever), Chest Congestion Outcome: Schedule an appointment to be seen within 24 hours Reason: Caller denied all higher acuity questions The caller accepted this outcome. Contact pt at [phone] documented in this encounter Plan of Treatment Not on file documented as of this encounter Visit Diagnoses Not on filedocumented in this encounter Additional Health Concerns Assessment Noted Time PHQ-9 Depression Total Score: 14 025 3:26 PM EDT documented as of this encounter Care Teams Dishtank Operator Relationship Specialty Start Date End Date Sarah Patiño MD [address] [place] [id number] PCP - General Family Medicine 07/05/18 documented as of this encounter
--- OUTSIDE RECORDS SUMMARY | 2025-03-09 16:11 | XMS_ITS | Encounter Summary ---
Author Organization [employer] Address [address] [place] [address] Care Team Providers Care Director Of Events Name Role Phone Sarah Patiño MD Primary Care Provider [phone] Encounter Details Date Type Department Care Team (Latest Contact Info) Description 03/09/2025 Travel Social History Tobacco Use Types Packs/Day Years [...] documented as of this encounter Care Teams Director Of Events Relationship Specialty Start Date End Date Sarah Patiño MD [address] [place] [address] PCP - General Family Medicine 07/05/18 documented as of this encounter
[2025-03-10 09:49] LABS: Chlamydia pneumoniae PCR Not Detected (Not Detect.); Coronavirus 229E PCR Not Detected (Not Detect.); Coronavirus HKU1 PCR Not Detected (Not Detect.); Coronavirus NL63 PCR Not Detected (Not Detect.); Coronavirus OC43 PCR Not Detected (Not Detect.); RSV PCR Not Detected (Not Detect.); Rhino/Enterovirus PCR Detected (Not Detect.)
[2025-03-10 09:52] LABS: Influenza A H1 PCR Not Detected (Not Detect.); Influenza A H1-2009 PCR Not Detected (Not Detect.); Influenza A H3 PCR Not Detected (Not Detect.); SARS-CoV-2 PCR Not Detected (Not Detect.)
== END 2025-03-09 16:06 | disposition home or self-care (01) ==
LOC: HO.CHCLNP 16:05
PROVIDERS: Visit Provider Pediatrics
DX: J06.9 Acute upper respiratory infection, unspecified (principal)
CPT/HCPCS: 87633

== ENCOUNTER 2025-06-12 08:20 | Outpatient (AMB) | payer MEDICARE, MEDICAID, SELFPAY ==
--- NOTE | 2025-06-12 08:27 | MHC.OFFVIS ---
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 No complaints. Last Pap/HPV was negative in 06/27 Last Mammogram was BI-RADS 2 in 09/25 Last screening colonoscopy was in 11/25 Ultrasound scheduled in few months for myoma follow-up Mirena IUD was inserted on 10/23/2024 [facility] Medical History Ovarian cyst Constipation Asthma Anxiety GERD (gastroesophageal reflux disease) Surgical History History of esophagogastroduodenoscopy (EGD) Hx of colonoscopy History of bilateral tubal ligation History of cholecystectomy Family History Unknown No family history of colorectal cancer Sister Ovarian cancer Social History Household Members: Family Housing: House Alcohol intake: current Alcohol intake frequency: holidays/special occasions only Patient Tobacco Use Status: Current everyday Tobacco user Tobacco use type: Cigarette Cigarettes Per Day: 9 Years Smoked: 20 Use of substances other than those prescribed or required for medical reasons: Yes Substance Use Type: Marijuana Substance Use Frequency: Daily Substance Use Frequency Other:: every day service: No Current occupational status: employed 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 /[employer] Sexual orientation: Straight/Heterosexual Gender identity: Female Female Reproductive History Menstrual Total pregnancies: 4 Full term: 3 Number of Living Children: 3 Ab induced: 1 Date of last pap smear: 06/06/24 Date of Mammogram: 09/17/23 Review of Systems Const All systems reviewed & are unremarkable except as noted in HPI and below Card Reports as per HPI Resp Reports as per HPI GI Reports as per HPI and Reports no additional complaints Reports as per HPI Physical Exam Vital Signs: Last Vital Signs BP 122/76 06/12/25 08:30 BMI result Body Mass Index 30.9 Const General: cooperative, healthy appearing and comfortable Chest Chest palpation & inspection: normal inspection of the chest and normal palpation of entire chest wall Breast/axilla inspection: normal inspection of the breasts and normal inspection of the axillae Breast/axilla palpation: normal palpation of the breasts, normal palpation of the axillae and no axillary lymphadenopathy Resp Effort & Inspection: normal respiratory effort Auscultation: clear to auscultation bilaterally Percussion: percussion normal Cardio Palpation: normal PMI Rate: regular rate Rhythm: regular rhythm Heart sounds: no murmurs and no rubs Peripheral pulses: Peripheral pulses 2+ throughout GI Inspection: Yes normal to inspection Palpation (GI): Soft to palpation, nontender, no guarding, not rigid and No hepatosplenomegaly present Percussion: Yes normal to percussion Auscultation: normal bowel sounds Rectal Exam - Female: deferred General: Yes bladder normal to palpation External Female Exam: No lesion Speculum Exam - Vagina: normal appearance of the vagina, normal palpation, normal vaginal discharge and not erythematous Speculum Exam - Cervix: normal appearance of the cervix, normal palpation and Other cervical findings present (IUD string in place) Bimanual exam- vagina & uterus: normal bimanual exam, normal palpation, uterine size normal, bladder normal to palpation, consistency normal and normal palpation Bimanual Exam- Adnexa, other: normal adnexae, no masses and no tenderness Assessment & Plan Assessment & Plan (1) Well woman exam: Code(s): Z01.419 - Encounter for gynecological examination (general) (routine) without abnormal findings Category: Medical Plan: Cotesting done. Mammogram ordered. Counseled the patient about the recommended dietary allowance of 1000 mg of Calcium & 600 IU of vitamin D. The patient was instructed to perform monthly self-breast exams and to schedule an annual exam in a year; All questions answered and the patient verbalized understanding. Instructed the patient to schedule annual exam in a year (2) IUD check up: Code(s): Z30.431 - Encounter for routine checking of intrauterine contraceptive device Category: Medical Plan: Discussed with the patient the date of insertion and instructions given to the patient to schedule IUD removal/reinsertion in 10/28 Coding Level of Care Code Est Pt Prev Care 40-64y([id number]) Diagnoses Well woman exam Z01.419 IUD check up Z30.431
[2025-06-12 08:30] VITALS: BP 122/76; BMI 30.9
== END 2025-06-12 09:00 | disposition home or self-care (01) ==
LOC: HO.HWS 08:21
PROVIDERS: PCP Pediatrics; Visit Provider Obstetrics & Gynecology
DX: Z01.419 Encounter for gynecological examination (general) (routine) without abnormal findings (principal); Z30.431 Encounter for routine checking of intrauterine contraceptive device
CPT/HCPCS: G0101

== ENCOUNTER → 2025-06-12 08:20 | Outpatient (BNVA) | payer MEDICARE, MEDICAID, SELFPAY | PROVIDERS: PCP Pediatrics; Visit Provider Obstetrics & Gynecology | DX: Z01.419 Encounter for gynecological examination (general) (routine) without abnormal findings (principal); Z30.431 Encounter for routine checking of intrauterine contraceptive device | CPT/HCPCS: G0101 ==